=== PATIENT | male | born 1940 | race Caucasian/White ===

== ENCOUNTER 2017-03-17 15:54 | Inpatient (IN) | payer OTHER, MEDICARE ==
[~2017-03-17] VITALS: Ht 172.7 cm; Wt 73.0 kg
[~2017-03-17 15:54] MED LIST: ASPI81 PO; CARV3.125 PO; CLOP75 PO; LASI20TA PO; PERC7.5T13 PO; POTA-243 PO; WARF2.5 PO; ZOCO10TA PO
[2017-03-17 15:56] VITALS: PULSE 112; RESP 20; TEMP 97.9; O2SAT 94
[2017-03-17 16:18] VITALS: BP 115/57; PULSE 99; RESP 17; O2SAT 97
[2017-03-17] MEDS ORDERED: MORPHINE SULFATE 2 MG/ML INJ IV PUSH ONE (17:00)
[2017-03-17 17:11] LABS: AUTOMATED NEUTROPHIL # 8.5 TH/MM3 (1.8-7.7); BASOPHIL # 0.1 TH/MM3 (0-0.2); BASOPHIL % 0.7 % (0.0-2.0); EOSINOPHIL # 0.1 TH/MM3 (0-0.4); EOSINOPHIL % 1.1 % (0.0-4.0); HEMATOCRIT 48.1 % (39.0-51.0); HEMOGLOBIN 16.2 GM/DL (13.0-17.0); LYMPH % 16.4 % (9.0-44.0); LYMPHOCYTE # 1.9 TH/MM3 (1.0-4.8); MEAN CELL VOLUME 90.4 FL (80.0-100.0); MEAN CORPUSCULAR HEMOGLOBIN 30.4 PG (27.0-34.0); MEAN CORPUSCULAR HGB CONC 33.6 % (32.0-36.0); MEAN PLATELET VOLUME 8.4 FL (7.0-11.0); MONO % 8.7 % (0.0-8.0); NEUT % 73.1 % (16.0-70.0); PLATELET COUNT 264 TH/MM3 (150-450); RED BLOOD COUNT 5.32 MIL/MM3 (4.50-5.90); RED CELL DISTRIBUTION WIDTH 14.2 % (11.6-17.2); WHITE BLOOD COUNT 11.7 TH/MM3 (4.0-11.0)
[2017-03-17 17:19] LABS: PROTHROMBIN TIME - PATIENT 10.5 SEC (9.8-11.6)
[2017-03-17 17:46] LABS: ALBUMIN 3.9 GM/DL (3.4-5.0); ALKALINE PHOSPHATASE 64 U/L (45-117); ALT (GPT) 43 U/L (12-78); AST (GOT) 23 U/L (15-37); BICARBONATE 27.9 MEQ/L (21.0-32.0); BLOOD UREA NITROGEN 50 MG/DL (7-18); CHLORIDE 106 MEQ/L (98-107); CREATININE 1.83 MG/DL (0.60-1.30); DIRECT BILIRUBIN ADULT 0.2 MG/DL (0.0-0.2); GLOMERULAR FILTRATION RATE 36 ML/MIN (>89); GLUCOSE,RANDOM 166 MG/DL (74-106); INDIRECT BILIRUBIN 0.5 MG/DL (0.0-0.8); LIPASE 73 U/L (73-393); SODIUM (NA) 142 MEQ/L (136-145); TOTAL BILIRUBIN ADULT 0.7 MG/DL (0.2-1.0); TOTAL PROTEIN 7.4 GM/DL (6.4-8.2)
--- NOTE | 2017-03-17 17:50 | PD ---
HPI Chief Complaint: Abdominal Pain Time Seen by Provider: 16:24 Travel History International Travel<30 days: No Contact w/Intl Traveler<30days: No Traveled to known affect area: No History of Present Illness HPI 76yo M with PMH of CAD s/p cardiogenic shock with 100% coronary artery occlusion in 2008, alcohol abuse presents to the ED with multiple complaints. [facility] [place] director call. Said he has been having right upper abdominal pain for 3 days and pain is constant and not relieved with tums. Pt has also been feeling generalized weakness, lightheadedness for 2 days. Feels like he is about to pass out but does not. Denies any fever, chest pain, sob, vomiting, focal weakness or numbness. Pt drinks beer almost every day. PFSH Past Medical History Blood Disorders: No Cardiac Catheterization: Yes Cardiovascular Problems: No High Cholesterol: Yes Diminished Hearing: No Endocrine: No Genitourinary: No Immune Disorder: No Implanted Vascular Access Dvce: No Musculoskeletal: No Neurologic: No Psychiatric: No Reproductive: No Respiratory: Yes (PE) Myocardial Infarction: Yes (07/19) Renal Failure: Yes Past Surgical History Coronary Stent: Yes Oral Surgery: Yes Social History Alcohol Use: Yes (OCCASSIONAL ONLY PER FAMILY) Tobacco Use: No (QUIT 07/15/08) Substance Use: No Allergies-Medications (Allergen,Severity, Reaction): Coded Allergies: No Known Allergies (Verified Allergy, Unknown, 03/17/17) Reported Meds & Prescriptions Reported Meds & Active Scripts Active Active Prescriptions or Reported Medications Unobtainable Review of Systems Except as stated in HPI: all other systems reviewed are Neg Physical Exam Narrative GENERAL: 76yo M in mild distress. SKIN: Focused skin assessment warm/dry. HEAD: Atraumatic. Normocephalic. EYES: Pupils equal and round. No scleral icterus. No injection or drainage. CARDIOVASCULAR: Regular rate and rhythm. No murmur appreciated. RESPIRATORY: No accessory muscle use. Clear to auscultation. Breath sounds equal bilaterally. GASTROINTESTINAL: Abdomen soft,+TTP RUQ. +[place] sign. No rebound tenderness or guarding. MUSCULOSKELETAL: No obvious deformities. No clubbing. No cyanosis. No edema. NEUROLOGICAL: Awake and alert. No obvious cranial nerve deficits. Motor grossly within normal limits. Normal speech. PSYCHIATRIC: Appropriate mood and affect; insight and judgment normal. Data Data Last Documented VS Vital Signs Date Time Temp Pulse Resp B/P (MAP) Pulse Ox O2 Delivery O2 Flow Rate FiO2 03/17/17 18:21 85 17 101/65 (77) 95 Room Air 03/17/17 15:56 97.9 Orders Orders Electrocardiogram (03/17/17 ) Complete Blood Count With Diff (03/17/17 16:46) Basic Metabolic Panel (Bmp) (03/17/17 16:46) Hepatic Functional Panel (03/17/17 16:46) Prothrombin Time / Inr (Pt) (03/17/17 16:46) Act Partial Throm Time (Ptt) (03/17/17 16:46) Us Abdomen Gallbladder (03/17/17 ) Lipase (03/17/17 16:46) Urinalysis - C+S If Indicated (03/17/17 16:46) Alcohol (Ethanol) (03/17/17 16:46) Morphine Inj (Morphine Inj) (03/17/17 17:00) Troponin I (03/17/17 16:48) Protein Corrected Calcium(Pcc) (03/17/17 16:40) Sodium Chlor 0.9% 1000 Ml Inj (Ns 1000 M (03/17/17 18:30) Consult General Surgery (03/17/17 ) (Hub Use Only)Inp Phy Cons/Ref (03/17/17 ) Admit Order (Ed Use Only) (03/17/17 19:04) Labs Laboratory Tests Test 03/17/17 16:40 White Blood Count 11.7 TH/MM3 Red Blood Count 5.32 MIL/MM3 Hemoglobin 16.2 GM/DL Hematocrit 48.1 % Mean Corpuscular Volume 90.4 FL Mean Corpuscular Hemoglobin 30.4 PG Mean Corpuscular Hemoglobin Concent 33.6 % Red Cell Distribution Width 14.2 % Platelet Count 264 TH/MM3 Mean Platelet Volume 8.4 FL Neutrophils (%) (Auto) 73.1 % Lymphocytes (%) (Auto) 16.4 % Monocytes (%) (Auto) 8.7 % Eosinophils (%) (Auto) 1.1 % Basophils (%) (Auto) 0.7 % Neutrophils # (Auto) 8.5 TH/MM3 Lymphocytes # (Auto) 1.9 TH/MM3 Monocytes # (Auto) 1.0 TH/MM3 Eosinophils # (Auto) 0.1 TH/MM3 Basophils # (Auto) 0.1 TH/MM3 CBC Comment DIFF FINAL Differential Comment Prothrombin Time 10.5 SEC Prothromb Time International Ratio 1.0 RATIO Activated Partial Thromboplast Time 22.5 SEC Blood Urea Nitrogen 50 MG/DL Creatinine 1.83 MG/DL Random Glucose 166 MG/DL Total Protein 7.4 GM/DL Albumin 3.9 GM/DL Calcium Level 11.6 MG/DL Alkaline Phosphatase 64 U/L Aspartate Amino Transf (AST/SGOT) 23 U/L Alanine Aminotransferase (ALT/SGPT) 43 U/L Total Bilirubin 0.7 MG/DL Direct Bilirubin 0.2 MG/DL Sodium Level 142 MEQ/L Potassium Level 4.4 MEQ/L Chloride Level 106 MEQ/L Carbon Dioxide Level 27.9 MEQ/L Anion Gap 8 MEQ/L Estimat Glomerular Filtration Rate 36 ML/MIN Protein Corrected Calcium 11.4 MG/DL Indirect Bilirubin 0.5 MG/DL Lipase 73 U/L Ethyl Alcohol Level LESS THAN 3 MG/DL [facility] Medical Decision Making Medical Screen Exam Complete: Yes Emergency Medical Condition: Yes Interpretation(s) EKG: Atrial flutter at 107bpm. Normal axis. Differential Diagnosis Arrhythmia vs. cholecystitis vs. hepatitis Narrative Course 76yo M with history of CAD s/p vfib and coronary artery occlusion, hoarse voice since intubation in 2008, PE, alcohol abuse here with multiple complaints. Pt has been having generalized weakness and EKG found to have aflutter. At bedside , HR is about 90s to low 100s. [facility]. Labs reviewed, WBC 11.7. BUN/creatinine elevated at 50/1.83. Calcium is elevated at 11.4. Pt given NS IVF. US gallbladder showed thickened gallbladder wall with multiple stone but no pericholecystic fluid. Normal CBD. Place general surgery consult since I am admitting the pt for RAKAN and near syncope work up. Pt initially had EKG that looked like atrial flutter but pt appears to be sinus in the 80s on the monitor. Discussed with Dr. Woods and accepted to her service. Diagnosis Primary Impression: RAKAN (acute kidney injury) Admitting Information Admitting Physician Requests: Admit Scripts Unable to Obtain Active Prescriptions or Reported Meds Eliz Salazar DO Mar 17, 2017 17:50
[2017-03-17 17:51] LABS: CALCIUM 11.6 MG/DL (8.5-10.1)
[2017-03-17 18:08] LABS: CALCIUM-PROTEIN CORRECTED 11.4 MG/DL (8.5-10.1)
--- NOTE | 2017-03-17 18:11 | RADRPT ---
EXAM DATE/TIME: 03/17/2017 17:31 [place] COMPARISON: No previous studies available for comparison. INDICATIONS : Right upper quadrant pain. MEDICAL HISTORY : Myocardial infarction. Hypercholesterolemia. Pulmonary embolism. Renal failure. SURGICAL HISTORY : Coronary artery stent. Oral surgery. ENCOUNTER: Initial ACUITY: 4-6 days PAIN SCORE: 10/10 LOCATION: Right upper quadrant MEASUREMENTS: LIVER: 15.9 cm length COMMON DUCT: 4 mm RIGHT KIDNEY: 11.6 x 4.5 x 5.8 cm FINDINGS: Thickened gallbladder wall with multiple stones the largest measuring up to 1.3 cm. No pericholecysti c fluid. Common bile duct normal at 4 mm. Portal venous flow direction normal. No focal liver abnorma lity. Nonobstructing renal calcifications measuring up to 6 mm. CONCLUSION: 1. Multiple gallstones without biliary ductal dilatation. No free fluid. Multiple nonobstructing shelia l calcifications. Nicolás Joy MD on March 17, 2017 at 18:07 Board Certified Radiologist. This report was verified electronically.
[2017-03-17 18:21] VITALS: BP 101/65; PULSE 85; RESP 17; O2SAT 95
[2017-03-17] MEDS ORDERED: SODIUM CHLOR 0.9% 1000 ML INJ 1,000 ML IV ONE (18:30)
--- NOTE | 2017-03-17 19:07 | HHI.HP ---
[facility] Service [place] [facility] Primary Care Physician [facility] Admission Diagnosis RAKAN, cholecystitis Diagnoses: (1) Near syncope Diagnosis: Principal (2) RAKAN (acute kidney injury) Diagnosis: Principal (3) Cholecystitis Diagnosis: Principal (4) Hypercalcemia Diagnosis: Principal (5) Alcohol abuse Diagnosis: Principal Travel History International Travel<30 Days: No Contact w/Intl Traveler <30 Da: No Traveled to Known Affected Are: No History of Present Illness This is a 36-year-old male with PMH of HTN, Hyperlipidemia, CAD and Alcohol Abuse who presented to the ER w/ complaints of RUQ pain, generalized weakness and lightheadedness. Pt reports symptoms started 2 days ago. RUQ pain is constant, non-radiating, severe, 10/10. No alleviating or exacerbating factors. Denies associated nausea or vomiting. Today, reports intense lightheadedness and near syncopal event. No fall or head trauma. On arrival, BP 115/57, HR 112, O2 sat 94% on RA, Afebrile. WBC 11.7. Creatinine 1.83, previously 0.90 on 08/21/08. Calcium 11.6. LFTs normal. Gallbladder US with multiple gallstones, no biliary ductal dilatation. On exam, pt w/ significant RUQ tenderness to palpation. S/p Morphine in ER w/ some improvement. Review of Systems Except as stated in HPI: all other systems reviewed are Neg ROS: 14 point review of systems otherwise negative. Past Family Social History Past Medical History PMH: HTN, Hyperlipidemia, CAD and Alcohol Abuse Past Surgical History PAST SURGICAL HISTORY: Cardiac Stent, Oral Surgery Allergies: Coded Allergies: No Known Allergies (Verified Allergy, Unknown, 03/17/17) Family History PAST FAMILY HISTORY: Reviewed. No h/o DM or CAD Social History PAST SOCIAL HISTORY: Drinks daily. History of tobacco, quit 2008. Negative for drugs. Physical Exam Vital Signs Vital Signs Date Time Temp Pulse Resp B/P (MAP) Pulse Ox O2 Delivery O2 Flow Rate FiO2 03/17/17 18:21 85 17 101/65 (77) 95 Room Air 03/17/17 16:18 99 17 115/57 (76) 97 Room Air 03/17/17 15:56 97.9 112 20 94 Room Air Physical Exam PE: GENERAL: Elderly male in no acute distress. HEENT: PERRLA, EOMI. No scleral icterus or conjunctival pallor. No lid lag or facial droop. CARDIOVASCULAR: Regular rate and rhythm. No obvious murmurs to auscultation. No chest tenderness to palpation. RESPIRATORY: No obvious rhonchi or wheezing. Clear to auscultation. Breath sounds equal bilaterally. GASTROINTESTINAL: Abdomen soft, significant tenderness to palpation RUQ, nondistended. BS normal. MUSCULOSKELETAL: Extremities without clubbing, cyanosis, or edema. No obvious deformities. NEUROLOGICAL: Awake, alert and oriented x4. No focal neurologic deficits. Moving both upper and lower extremities spontaneously. Laboratory Laboratory Tests Test 03/17/17 16:40 White Blood Count 11.7 Red Blood Count 5.32 Hemoglobin 16.2 Hematocrit 48.1 Mean Corpuscular Volume 90.4 Mean Corpuscular Hemoglobin 30.4 Mean Corpuscular Hemoglobin Concent 33.6 Red Cell Distribution Width 14.2 Platelet Count 264 Mean Platelet Volume 8.4 Neutrophils (%) (Auto) 73.1 Lymphocytes (%) (Auto) 16.4 Monocytes (%) (Auto) 8.7 Eosinophils (%) (Auto) 1.1 Basophils (%) (Auto) 0.7 Neutrophils # (Auto) 8.5 Lymphocytes # (Auto) 1.9 Monocytes # (Auto) 1.0 Eosinophils # (Auto) 0.1 Basophils # (Auto) 0.1 CBC Comment DIFF FINAL Differential Comment Prothrombin Time 10.5 Prothromb Time International Ratio 1.0 Activated Partial Thromboplast Time 22.5 Blood Urea Nitrogen 50 Creatinine 1.83 Random Glucose 166 Total Protein 7.4 Albumin 3.9 Calcium Level 11.6 Alkaline Phosphatase 64 Aspartate Amino Transf (AST/SGOT) 23 Alanine Aminotransferase (ALT/SGPT) 43 Total Bilirubin 0.7 Direct Bilirubin 0.2 Sodium Level 142 Potassium Level 4.4 Chloride Level 106 Carbon Dioxide Level 27.9 Anion Gap 8 Estimat Glomerular Filtration Rate 36 Protein Corrected Calcium 11.4 Indirect Bilirubin 0.5 Lipase 73 Ethyl Alcohol Level LESS THAN 3 Result Diagram: 03/17/17 1640 03/17/17 1640 Dee VTE Risk Assessment Caprini VTE Risk Assessment: No/Low Risk (score <= 1) Caprini Risk Assessment Model Point Value = 1 Point Value = 2 Point Value = 3 Point Value = 5 Age 41-60 Minor surgery BMI > 25 kg/m2 Swollen legs Varicose veins or History of unexplained or recurrent spontaneous Oral contraceptives or hormone replacement Sepsis (< 1 month) Serious lung disease, including pneumonia (< 1 month) Abnormal pulmonary function Acute myocardial infarction Congestive heart failure (< 1 month) History of inflammatory bowel disease Medical patient at bed rest Age 61-74 Arthroscopic surgery Major open surgery (> 45 min) Laparoscopic surgery (> 45 min) Malignancy Confined to bed (> 72 hours) Immobilizing plaster cast Central venous access Age >= 75 History of VTE Family history of VTE Factor V Leiden Prothrombin [id number] Lupus anticoagulant Anticardiolipin antibodies Elevated serum homocysteine Heparin-induced thrombocytopenia Other congenital or acquired thrombophilia Stroke (< 1 month) Elective arthroplasty Hip, pelvis, or leg fracture Acute spinal cord injury (< 1 month) Prophylaxis Regimen Total Risk Factor Score Risk Level Prophylaxis Regimen 0-1 Low Early ambulation 2 Moderate Order ONE of the following: *Sequential Compression Device (SCD) *Heparin 5000 units SQ BID 3-4 Higher Order ONE of the following medications: *Heparin 5000 units SQ TID *Enoxaparin/Lovenox 40 mg SQ daily (WT < 150 kg, CrCl > 30 mL/min) *Enoxaparin/Lovenox 30 mg SQ daily (WT < 150 kg, CrCl > 10-29 mL/min) *Enoxaparin/Lovenox 30 mg SQ BID (WT < 150 kg, CrCl > 30 mL/min) AND/OR *Sequential Compression Device (SCD) 5 or more Highest Order ONE of the following medications: *Heparin 5000 units SQ TID (Preferred with Epidurals) *Enoxaparin/Lovenox 40 mg SQ daily (WT < 150 kg, CrCl > 30 mL/min) *Enoxaparin/Lovenox 30 mg SQ daily (WT < 150 kg, CrCl > 10-29 mL/min) *Enoxaparin/Lovenox 30 mg SQ BID (WT < 150 kg, CrCl > 30 mL/min) AND *Sequential Compression Device (SCD) Assessment and Plan Problem List: (1) Near syncope ICD Code: R55 - Syncope and collapse (2) RAKAN (acute kidney injury) ICD Code: N17.9 - Acute kidney failure, unspecified Status: Acute (3) Cholecystitis ICD Code: K81.9 - Cholecystitis, unspecified (4) Hypercalcemia ICD Code: E83.52 - Hypercalcemia (5) Alcohol abuse ICD Code: F10.10 - Alcohol abuse, uncomplicated Assessment and Plan A/P: 1. Near Syncope: likely secondary to significant dehydration/hypovolemia. Telemetry for eval of possible arrhythmia. Check serial cardiac enzymes to rule out underlying ACS as possible etiology. Check Echo to eval for valve abnormality or outlet obstruction. 2. RAKAN: Severe. Creatinine 1.83, previously 0.90 on 08/21/08. Check U/a. IVF for hydration, repeat labs in am for trend. Consult Nephrology if no improvement in renal function for further recommendations. 3. Cholecystitis: Severe RUQ pain/tenderness to palpation. Gallbladder US w/ thickened gallbladder wall and multiple stones, images reviewed by me. Will start on empiric antibiotics w/ Zosyn IV in light of symptoms and leukocytosis. Consult Gen Sx for possible surgical intervention. Morphine prn for pain control. 4. Hypercalcemia: Ca 11.6, likely secondary to severe dehydration. IVF for hydration, repeat labs in am for trend. 5. Alcohol Abuse: Drinks daily, high risk for withdrawal, start CIWA, MVT/ Thiamine/Folate, Seizure Precautions. 6. DVT Prophylaxis: SCD/Teds. 7. Social work for d/c planning as needed. 8. Records/labs/imaging reviewed by me. Case discussed at length w/ ER physician. Physician Certification 2 Midnight Certification Type: Admission for Inpatient Services Order for Inpatient Services The services are ordered in accordance with Medicare regulations or non- Medicare payer requirements, as applicable. In the case of services not specified as inpatient-only, they are appropriately provided as inpatient services in accordance with the 2-midnight benchmark. Estimated LOS (days): 2 days is the estimated time the patient will need to remain in the hospital, assuming treatment plan goals are met and no additional complications. Post-Hospital Plan: Not yet determined Ruma Woods MD Mar 17, 2017 19:07
[2017-03-17] MEDS ORDERED: FLUMAZENIL 0.5 MG/5 ML VIAL IV PUSH PRN (19:15)
[2017-03-17] MEDS ORDERED: MAGNESIUM HYDROXIDE SUSP 30 ML CUP PO PRN (19:15)
[2017-03-17] MEDS ORDERED: ACETAMINOPHEN 325 MG TAB PO PRN (19:15)
[2017-03-17] MEDS ORDERED: SODIUM CHLORIDE 0.9% FLUSH 10 ML FLUSH IV FLUSH PRN (19:15)
[2017-03-17] MEDS ORDERED: LORazepam 2 MG/ML VIAL IV PUSH PRN ×4 (19:15)
[2017-03-17] MEDS ORDERED: LACTULOSE SYRUP 20 GM/30 ML CUP PO PRN (19:15)
[2017-03-17] MEDS ORDERED: HALOPERIDOL LACTATE 5 MG/ML AMP IM PRN (19:15)
[2017-03-17] MEDS ORDERED: BISACODYL 10 MG SUPP RECTAL PRN (19:15)
[2017-03-17] MEDS ORDERED: LORazepam 2 MG TAB PO PRN (19:15)
[2017-03-17] MEDS ORDERED: LORazepam 1 MG TAB PO PRN (19:15)
[2017-03-17] MEDS ORDERED: ONDANSETRON HCL 4 MG/2 ML VIAL IVP PRN (19:15)
[2017-03-17] MEDS ORDERED: SENNOSIDES 8.6 MG TAB PO PRN (19:15)
[2017-03-17 19:20] VITALS: BP 117/69; PULSE 84; RESP 18; O2SAT 96
[2017-03-17] MEDS: SODIUM CHLOR 0.9% 1000 ML INJ 1,000 ML IV SCH (19:37)
[2017-03-17] MEDS: MORPHINE SULFATE 2 MG/ML INJ IV PUSH PRN (19:37)
[2017-03-17 20:03] VITALS: BP 107/72; PULSE 81; RESP 20; O2SAT 98
--- NOTE | 2017-03-17 20:12 | MB ---
cc: TOLU TYLER M.D. DATE OF CONSULTATION: 03/17/2017. REASON FOR CONSULTATION: Gallstones with a Mohan sign by ultrasound. HISTORY OF PRESENT ILLNESS: The patient is a 76-year-old male with a four-day history of right upper quadrant pain. The patient has been followed over in the [facility] clinic and has been reported to have been given pain pills for this in the past. He was seen in [address] [facility] for very similar symptoms. He reports he was not having any problems since then. He has since suffered cardiogenic shock with a myocardial infarction in 2008. He has followed with a forging machine hand in [facility] at the [facility] but does not recall his name. PAST MEDICAL HISTORY: His past medical history is significant for: 1. Coronary artery disease. 2. Hyperlipidemia. 3. Hypertension. 4. Alcohol abuse. ALLERGIES: THE PATIENT HAS NO KNOWN ALLERGIES. MEDICATIONS: He does not recall what medications he is taking. REVIEW OF SYSTEMS: His review of systems is as indicated above. PHYSICAL EXAMINATION: GENERAL: The physical exam reveals a thin male in no acute distress. VITAL SIGNS: Blood pressure 115/57, pulse 99, respirations 17, 97% saturation on room air. HEAD, EYES, EARS, NOSE, THROAT: The sclerae are nonicteric. Pupils are reactive. CHEST: Clear to auscultation. CARDIAC: Exam reveals regular rate and rhythm. ABDOMEN: Soft with some right upper quadrant tenderness without guarding or rebound. Pulses are present. I do not appreciate any hepatomegaly. There are no masses appreciated. NEUROLOGIC: Cranial nerves - the patient is hoarse and reports he has been so since 2008. LABORATORY VALUES: WBCs of 11.7, platelets of 264,000, hemoglobin 16.2. Chemistries: Abnormal BUN and creatinine at 50 and 1.83. Glucose is 166. Calcium is 11.6. Protein-corrected is 11.4. Liver function tests are all within normal limits. Lipase is within normal limits. Coags are normal. EtOH is less than 3. IMAGING STUDIES: Ultrasound demonstrates normal common bile duct at 4 mm, a thickened gallbladder wall with multiple stones. No pericholecystic fluid. ASSESSMENT: A patient with severe cardiac disease without significant follow up or workup recently that he can recall. The patient does not have signs and symptoms of cholangitis or acute requirement for surgery this weekend. I would be reluctant to perform any surgery without a complete cardiac workup prior to proceeding as he would be at extreme risk for sudden as he has not had any workup in the recent past. I am also concerned about the patient's elevated calcium, and this may be elevated due to either hyperparathyroidism or potentially metastatic disease. The patient needs workup for this as well. If the patient is having significant continued discomfort, cholecystostomy tube while the remainder of his workup is being performed would be advisable. We will check on the patient again on Monday if he stays in the hospital over the weekend. There is no indication for urgent or emergent surgery at this time. Thank you for this interesting consult. MD HANNA Jay/JCSharlene /7:39 PM /7:45 PM
[2017-03-17] MEDS: PIPERACIL-TAZO 3.375 GM PREMIX 50 ML IV SCH (20:20)
[2017-03-17 20:38] VITALS: BP 110/65; PULSE 85; RESP 20; TEMP 96.6; O2SAT 95
[2017-03-17] MEDS: SODIUM CHLORIDE 0.9% FLUSH 10 ML FLUSH IV FLUSH SCH (21:57)
[2017-03-17] MEDS: DOCUSATE SODIUM 50 MG/SENNA 8.6 MG TAB PO SCH (22:17)
[2017-03-18] VITALS (9 sets, daily range): BP systolic 104–137; BP diastolic 61–80; PULSE 70–84; RESP 17–20; TEMP 96.7–98.5; O2SAT 94–96
[2017-03-18] MEDS: PIPERACIL-TAZO 3.375 GM PREMIX 50 ML IV SCH ×4 (01:37→20:00)
[2017-03-18] MEDS: SODIUM CHLOR 0.9% 1000 ML INJ 1,000 ML IV SCH ×2 (05:21→13:38)
[2017-03-18] MEDS: MORPHINE SULFATE 2 MG/ML INJ IV PUSH PRN (05:22)
[2017-03-18] MEDS: THIAMINE HCL 100 MG TAB PO SCH (08:33)
[2017-03-18] MEDS: MULTIVITAMINS/MINERALS THERAPEUTIC TAB PO SCH (08:33)
[2017-03-18] MEDS: FOLIC ACID 1 MG TAB PO SCH (08:33)
[2017-03-18] MEDS: DOCUSATE SODIUM 50 MG/SENNA 8.6 MG TAB PO SCH ×2 (08:33→20:00)
[2017-03-18] MEDS: ACETAMINOPHEN/HYDROcodone 325 MG/5 MG TAB PO PRN ×4 (08:34→22:30)
[2017-03-18] MEDS: SODIUM CHLORIDE 0.9% FLUSH 10 ML FLUSH IV FLUSH SCH ×2 (08:34→20:00)
[2017-03-18 09:10] LABS: AUTOMATED NEUTROPHIL # 6.6 TH/MM3 (1.8-7.7); BASOPHIL # 0.1 TH/MM3 (0-0.2); EOSINOPHIL # 0.2 TH/MM3 (0-0.4); EOSINOPHIL % 2.4 % (0.0-4.0); HEMATOCRIT 43.2 % (39.0-51.0); HEMOGLOBIN 14.9 GM/DL (13.0-17.0); LYMPH % 19.7 % (9.0-44.0); LYMPHOCYTE # 1.9 TH/MM3 (1.0-4.8); MEAN CELL VOLUME 90.1 FL (80.0-100.0); MEAN CORPUSCULAR HGB CONC 34.4 % (32.0-36.0); MEAN PLATELET VOLUME 8.2 FL (7.0-11.0); MONO % 8.9 % (0.0-8.0); MONOCYTE # 0.9 TH/MM3 (0-0.9); PLATELET COUNT 237 TH/MM3 (150-450); RED BLOOD COUNT 4.79 MIL/MM3 (4.50-5.90); RED CELL DISTRIBUTION WIDTH 13.7 % (11.6-17.2); WHITE BLOOD COUNT 9.8 TH/MM3 (4.0-11.0)
[2017-03-18 09:46] LABS: ALBUMIN 3.5 GM/DL (3.4-5.0); ALKALINE PHOSPHATASE 57 U/L (45-117); ALT (GPT) 41 U/L (12-78); AST (GOT) 21 U/L (15-37); BICARBONATE 26.9 MEQ/L (21.0-32.0); BLOOD UREA NITROGEN 41 MG/DL (7-18); CALCIUM 10.1 MG/DL (8.5-10.1); CHLORIDE 109 MEQ/L (98-107); CREATININE 1.38 MG/DL (0.60-1.30); GLOMERULAR FILTRATION RATE 50 ML/MIN (>89); GLUCOSE,RANDOM 101 MG/DL (74-106); SODIUM (NA) 142 MEQ/L (136-145); TOTAL BILIRUBIN ADULT 1.2 MG/DL (0.2-1.0); TOTAL PROTEIN 6.9 GM/DL (6.4-8.2); TROPONIN I 0.05 NG/ML (0.02-0.05)
--- NOTE | 2017-03-18 10:09 | HHI.PR ---
cc: Yamilet Ashley MD Subjective Subjective Notes DAILY PROGRESS NOTE FOR SURGICAL ATTENDING, DR. YAMILET ASHLEY Patient feels better Had a regular diet today Still has some right upper quadrant pain He had some he was eating a lot of Tums and drinks 2 gallons of milk frequently he asked if this could cause high calcium Objective Vitals/I&O Vital Signs Date Time Temp Pulse Resp B/P (MAP) Pulse Ox O2 Delivery O2 Flow Rate FiO2 03/18/17 09:41 18 03/18/17 08:00 98.0 84 137/80 (99) 95 03/17/17 20:03 Room Air Labs Laboratory Tests Test 03/17/17 16:40 03/18/17 00:42 03/18/17 07:30 White Blood Count 11.7 9.8 Red Blood Count 5.32 4.79 Hemoglobin 16.2 14.9 Hematocrit 48.1 43.2 Mean Corpuscular Volume 90.4 90.1 Mean Corpuscular Hemoglobin 30.4 31.0 Mean Corpuscular Hemoglobin Concent 33.6 34.4 Red Cell Distribution Width 14.2 13.7 Platelet Count 264 237 Mean Platelet Volume 8.4 8.2 Neutrophils (%) (Auto) 73.1 68.0 Lymphocytes (%) (Auto) 16.4 19.7 Monocytes (%) (Auto) 8.7 8.9 Eosinophils (%) (Auto) 1.1 2.4 Basophils (%) (Auto) 0.7 1.0 Neutrophils # (Auto) 8.5 6.6 Lymphocytes # (Auto) 1.9 1.9 Monocytes # (Auto) 1.0 0.9 Eosinophils # (Auto) 0.1 0.2 Basophils # (Auto) 0.1 0.1 CBC Comment DIFF FINAL DIFF FINAL Differential Comment Prothrombin Time 10.5 Prothromb Time International Ratio 1.0 Activated Partial Thromboplast Time 22.5 Blood Urea Nitrogen 50 41 Creatinine 1.83 1.38 Random Glucose 166 101 Total Protein 7.4 6.9 Albumin 3.9 3.5 Calcium Level 11.6 10.1 Alkaline Phosphatase 64 57 Aspartate Amino Transf (AST/SGOT) 23 21 Alanine Aminotransferase (ALT/SGPT) 43 41 Total Bilirubin 0.7 1.2 Direct Bilirubin 0.2 Sodium Level 142 142 Potassium Level 4.4 3.9 Chloride Level 106 109 Carbon Dioxide Level 27.9 26.9 Anion Gap 8 6 Estimat Glomerular Filtration Rate 36 50 Protein Corrected Calcium 11.4 Indirect Bilirubin 0.5 Troponin I 0.03 0.04 0.05 Lipase 73 Ethyl Alcohol Level LESS THAN 3 Radiology Last Impressions Gall Bladder Ultrasound 03/17/17 0000 Signed Impressions: Service Date/Time: Friday, March 17, 2017 17:31 - CONCLUSION: 1. Multiple gallstones without biliary ductal dilatation. No free fluid. Multiple nonobstructing renal calcifications. Yamilet Joy MD Cardiovascular: Regular Lungs: Clear Abdomen: Other (mild right upper quadrant tenderness), BS normal Extremities: No edema A/P Problem List: (1) Coronary artery disease ICD Codes: I25.10 - Atherosclerotic heart disease of enterprise coronary artery without angina pectoris (2) Cholecystitis ICD Codes: K81.9 - Cholecystitis, unspecified (3) Near syncope ICD Codes: R55 - Syncope and collapse (4) Hypercalcemia ICD Codes: E83.52 - Hypercalcemia (5) RAKAN (acute kidney injury) ICD Codes: N17.9 - Acute kidney failure, unspecified Status: Acute (6) Alcohol abuse ICD Codes: F10.10 - Alcohol abuse, uncomplicated Assessment and Plan 76-year-old gentleman who has severe coronary artery disease with hypercalcemia most likely related to calcium intake with Tums pills and milk He has findings of cholecystitis his first attack occurring in 2008 He tolerated a regular breakfast today does still have some abdominal discomfort. He will need a full cardiac workup and clearance prior to surgical intervention I suspect his calcium will return to normal by not eating Tums and drinking 2 gallons of milk Attending Statement NOTE FOR SURGICAL ATTENDING, DR. YAMILET ASHLEY I attest that I had a [id number] encounter with the patient on the same day, and personally performed and documented my assessment and findings in the medical record. The following services were provided during this hospital visit: Chart data review, vital sign assessments/reviewing monitor data Review of consultations notes if present. Medication orders/review and/or management Ordering and/or reviewing lab tests Ordering and/or interpreting/reviewing x-rays and/or diagnostic studies Care of the patient and discussion of the patient with the care team Documentation time To help prompt me to consider important information that might be impacting today's encounter and assessment, information from prior notes written by myself or my colleagues may have been "brought forward/copy and pasted" into today's note. Yamilet Ashley MD Mar 18, 2017 10:09
--- NOTE | 2017-03-18 13:15 | EKG ---
Date Performed: 03/17/2017 Time Performed: 16:30:18 PTAGE: 76 years EKG: ATRIAL FIBRILLATION WITH SLIGHTLY RAPID VENTRICULAR RESPONSE ANTEROSEPTAL MYOCARDIAL INFARC TION OF UNDETERMINED AGE Compared to previous tracing, the atrial fibrillation is new. Anteroseptal m yocardial infarction was seen on the previous tracing with clearly marked T-wave changes anteriorly, suggesting the infarct was recent in 2008. There is a definite rhythm change however. ABNORMAL ECG PREVIOUS TRACING : 08/21/2008 17.10 DOCTOR: Emiliano Rider Interpretating Date/Time 03/18/2017 13:13:12
--- NOTE | 2017-03-18 18:20 | ECHRPT ---
Indication: ardiomyopathy CONCLUSIONS Normal left ventricular size. The left ventricular systolic function is yjfdkujg-ia-jiichit reduced with an estimated ejection fra ction in the range of 35-40%. Mild mitral valve regurgitation. Mild aortic valve regurgitation. There is mild tricuspid valve regurgitation. The estimated pulmonary arterial pressure is 46.2 mmHg. BP: / HR: Rhythm: MEASUREMENTS (Male / Female) Normal Values Technical Quality:Good 2D ECHO LV Diastolic Diameter PLAX 3.9 cm 4.2 - 5.9 / 3.9 - 5.3 cm LV Systolic Diameter PLAX 3.4 cm IVS Diastolic Thickness 1.4 cm 0.6 - 1.0 / 0.6 - 0.9 cm LVPW Diastolic Thickness 0.9 cm 0.6 - 1.0 / 0.6 - 0.9 cm LV Relative Wall Thickness 0.6 RV Internal Dim ED PLAX 2.5 cm M-MODE Aortic Root Diameter MM 2.7 cm LA Systolic Diameter MM 3.7 cm LA Ao Ratio MM 1.4 AV Cusp Separation MM 2.1 cm DOPPLER AI Peak Velocity 299.0 cm/s AI Peak Gradient 35.8 mmHg AI Pressure Half Time 454.0 ms TR Peak Velocity 301.0 cm/s TR Peak Gradient 36.2 mmHg Right Atrial Pressure 10.0 mmHg Pulmonary Artery Systolic Pressu 46.2 mmHg Right Ventricular Systolic Press 46.2 mmHg FINDINGS LEFT VENTRICLE Normal left ventricular size. The left ventricular systolic function is jfjrmncw-tn-micfsdb reduced with an estimated ejection fra ction in the range of 35-40%. RIGHT VENTRICLE Normal right ventricular size and systolic function. LEFT ATRIUM The left atrial size is normal. RIGHT ATRIUM The right atrial size is normal. ATRIAL SEPTUM Normal atrial septal thickness without atrial level shunting by limited color doppler interrogation. AORTA The aortic root and proximal ascending aorta are normal in size on limited imaging. MITRAL VALVE Structurally normal mitral valve. Mild mitral valve regurgitation. AORTIC VALVE Trileaflet aortic valve. Mild aortic valve regurgitation. TRICUSPID VALVE Structurally normal tricuspid valve. There is mild tricuspid valve regurgitation. The estimated pulmonary arterial pressure is 46.2 mmHg. PULMONARY VALVE No pulmonary valve regurgitation or stenosis. VESSELS The inferior vena cava is normal in size. PERICARDIUM No pericardial effusion. Mark Orozco MD, FACC, [facility] [place] (Electronically Signed) Final Date:18 March 2017 18:18
--- NOTE | 2017-03-18 21:18 | HHI.PR ---
Subjective Remarks Patient feeling better already No dizziness lightheadedness or chest pain or short of breath He told me he used to take a lot of Tums for heartburn in as well as drink a lot of milk, he think this is related to his increased calcium Objective Vitals Vital Signs Date Time Temp Pulse Resp B/P (MAP) Pulse Ox O2 Delivery O2 Flow Rate FiO2 03/18/17 20:27 98.5 70 18 122/76 (91) 95 03/18/17 18:04 18 03/18/17 17:27 95 21 03/18/17 16:00 75 03/18/17 16:00 96.7 77 17 129/77 (94) 95 03/18/17 12:00 97.2 79 17 124/61 (82) 96 03/18/17 12:00 78 03/18/17 08:00 98.0 84 19 137/80 (99) 95 03/18/17 08:00 79 03/18/17 04:00 98.0 83 20 126/75 (92) 95 03/18/17 00:55 97.4 83 20 104/64 (77) 94 I/O 03/17/17 03/17/17 03/17/17 03/18/17 03/18/17 03/18/17 07:00 15:00 23:00 07:00 15:00 23:00 Intake Total 1110 ml 1290 ml 1275 ml Balance 1110 ml 1290 ml 1275 ml Intake Oral 240 ml 1275 ml IV Total 1110 ml 1050 ml # Voids 2 7 # Bowel Movements 0 Result Diagram: 03/18/17 0730 03/18/17 0730 Objective Remarks GENERAL: This is a well-nourished, well-developed patient, in no apparent distress. SKIN: No rashes, warm and dry HEAD: Atraumatic. Normocephalic. EYES: Pupils equal round and reactive. Extraocular motions intact. No scleral icterus. ENT: Nose without bleeding, or drainage, Airway patent. NECK: Trachea midline. Supple CARDIOVASCULAR: Regular rate and rhythm without murmurs, gallops, or rubs. RESPIRATORY: Fair air entry bilaterally. No wheezes, rales, or rhonchi. GASTROINTESTINAL: Abdomen soft, non-tender, nondistended. Positive bowel sounds MUSCULOSKELETAL: Extremities without clubbing, cyanosis, or edema. Pedal pulses appreciated NEUROLOGICAL: Awake and alert. Moves all extremity. Normal speech.no focal neurological deficit A/P Problem List: (1) Near syncope ICD Code: R55 - Syncope and collapse (2) RAKAN (acute kidney injury) ICD Code: N17.9 - Acute kidney failure, unspecified Status: Acute (3) Cholecystitis ICD Code: K81.9 - Cholecystitis, unspecified (4) Hypercalcemia ICD Code: E83.52 - Hypercalcemia (5) Alcohol abuse ICD Code: F10.10 - Alcohol abuse, uncomplicated Assessment and Plan 1. Near Syncope: likely secondary to significant dehydration/hypovolemia. Telemetry for eval of possible arrhythmia. Check serial cardiac enzymes to rule out underlying ACS as possible etiology. Check Echo to eval for valve abnormality or outlet obstruction. 2. RAKAN: Severe. Creatinine 1.83, previously 0.90 on 08/21/08. Check U/a. IVF for hydration, repeat labs in am for trend. Consult Nephrology if no improvement in renal function for further recommendations. 3. Cholecystitis: Severe RUQ pain/tenderness to palpation. Gallbladder US w/ thickened gallbladder wall and multiple stones, images reviewed by me. Will start on empiric antibiotics w/ Zosyn IV in light of symptoms and leukocytosis. Consult Gen Sx for possible surgical intervention. Morphine prn for pain control. 4. Hypercalcemia: Ca 11.6, likely secondary to severe dehydration. IVF for hydration, repeat labs in am for trend. 5. Alcohol Abuse: Drinks daily, high risk for withdrawal, start CIWA, MVT/ Thiamine/Folate, Seizure Precautions. 6. DVT Prophylaxis: SCD/Teds. 03/18/17: Doing better creatinine improved from 1.8-1.38-courtney calcium back to normal limit from 11.6-10.1, repeat BMP in a.m., continue iv fluid Peter Wilson MD Mar 18, 2017 21:18
[2017-03-19] VITALS (10 sets, daily range): BP systolic 95–162; BP diastolic 62–86; PULSE 74–85; RESP 16–20; TEMP 96.5–97.7; O2SAT 94–100
[2017-03-19] MEDS: PIPERACIL-TAZO 3.375 GM PREMIX 50 ML IV SCH ×4 (01:55→19:49)
[2017-03-19] MEDS: SODIUM CHLOR 0.9% 1000 ML INJ 1,000 ML IV SCH (04:39)
[2017-03-19] MEDS: ACETAMINOPHEN/HYDROcodone 325 MG/5 MG TAB PO PRN ×4 (04:47→21:17)
[2017-03-19] MEDS: SODIUM CHLORIDE 0.9% FLUSH 10 ML FLUSH IV FLUSH SCH ×2 (09:00→19:50)
[2017-03-19] MEDS: DOCUSATE SODIUM 50 MG/SENNA 8.6 MG TAB PO SCH ×2 (09:03→19:41)
[2017-03-19] MEDS: MULTIVITAMINS/MINERALS THERAPEUTIC TAB PO SCH (09:03)
[2017-03-19] MEDS: FOLIC ACID 1 MG TAB PO SCH (09:03)
[2017-03-19] MEDS: THIAMINE HCL 100 MG TAB PO SCH (09:03)
--- NOTE | 2017-03-19 10:17 | PD.CONS ---
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 Pt reports symptoms started 2 days ago. RUQ pain is constant , non-radiating, severe, 10/10. No alleviating or exacerbating factors. Denies associated nausea or vomiting. Today, reports intense lightheadedness and near syncopal event. No fall or head trauma. On arrival, BP 115/57, HR 112 , O2 sat 94% on RA, Afebrile. WBC 11.7. Creatinine 1.83, previously 0.90 on 01/19. Calcium 11.6. LFTs normal. Gallbladder US with multiple gallstones, no biliary ductal dilatation. Cardiology consulted for preop clearance. Review of Systems Consitutional: DENIES: Fatigue, Fever, Chills, Weight gain, Weight loss Eyes: DENIES: Amaurosis Fugax, Change in vision HEENT: DENIES: Lightheadedness, Change in hearing Respiratory: DENIES: See HPI, Cough, Snoring, Shortness of breath, Wheezing, Sputum production Cardiovascular: DENIES: See HPI, Chest pain, Palpitations, Syncope, Tachycardia Gastrointestinal: DENIES: Nausea, Vomiting, Change in bowel habits, Reflux, Bloody stools, Melena Genitourinary: DENIES: Urinary incontinence, Difficulty voiding Integumentary: DENIES: Rash Neurologic: DENIES: Tingling or numbness, Memory problems, Poor Balance, Stroke symptoms Musculoskeletal: DENIES: Joint pain, Muscle pain, Limited range of motion, Back pain Psychiatric: DENIES: Anxiety, Depression, Sleep disturbances Hematologic: DENIES: Bruising tendencies, Bleeding tendencies Endocrine: DENIES: Weight gain, Weight loss, Thyroid disease Past Family Social History Allergies: Coded Allergies: No Known Allergies (Verified Allergy, Unknown, 03/17/17) Past Medical History HTN, Hyperlipidemia, CAD and Alcohol Abuse Past Surgical History Cardiac Stent, Oral Surgery Reported Medications Reported Meds & Active Scripts Active Active Prescriptions or Reported Medications Unobtainable Active Ordered Medications Current Medications Medications (Trade) Dose Ordered Sig/Paolo Route Start Time Stop Time Status Last Admin Piperacillin Sod/ Tazobactam Sod 50 ml @ 100 mls/hr Q6H IV 03/17/17 20:00 03/19/17 09:00 (NS Flush) 2 ml UNSCH PRN IV FLUSH 03/17/17 19:15 (NS Flush) 2 ml BID IV FLUSH 03/17/17 21:00 03/19/17 09:00 (Zofran Inj) 4 mg Q6H PRN IVP 03/17/17 19:15 (Tylenol) 650 mg Q6H PRN PO 03/17/17 19:15 03/17/17 22:15 ([place] 5-325 Mg) 1 tab Q4H PRN PO 03/17/17 19:15 03/19/17 04:47 (Morphine Inj) 2 mg Q3H PRN IV PUSH 03/17/17 19:15 03/18/17 05:22 (Kacie-Colace) 1 tab BID PO 03/17/17 21:00 03/19/17 09:03 (Milk Of Magnesia Liq) 30 ml Q12H PRN PO 03/17/17 19:15 (Senokot) 17.2 mg Q12H PRN PO 03/17/17 19:15 (Dulcolax Supp) 10 mg DAILY PRN RECTAL 03/17/17 19:15 (Lactulose Liq) 30 ml DAILY PRN PO 03/17/17 19:15 (Folate) 1 mg DAILY PO 03/18/17 09:00 03/23/17 08:59 03/19/17 09:03 (Vitamin B1) 100 mg DAILY PO 03/18/17 09:00 03/19/17 09:03 (Theragran M Tab) 1 tab DAILY PO 03/18/17 09:00 03/23/17 08:59 03/19/17 09:03 (Romazicon Inj) 0.2 mg Q1M PRN IV PUSH 03/17/17 19:15 (Ativan) 1 mg Q4H PRN PO 03/17/17 19:15 (Ativan Inj) 1 mg Q4H PRN IV PUSH 03/17/17 19:15 (Ativan) 2 mg Q2H PRN PO 03/17/17 19:15 (Ativan Inj) 2 mg Q2H PRN IV PUSH 03/17/17 19:15 (Ativan Inj) 2 mg Q1H PRN IV PUSH 03/17/17 19:15 (Ativan Inj) 2 mg Q15M PRN IV PUSH 03/17/17 19:15 (Haldol Inj) 2 mg Q15M PRN IM 03/17/17 19:15 Family History No h/o DM or CAD Social History Drinks daily. History of tobacco, quit 2008. Negative for drugs. Physical Exam Vital Signs Vital Signs Date Time Temp Pulse Resp B/P (MAP) Pulse Ox O2 Delivery O2 Flow Rate FiO2 03/19/17 08:00 97.0 77 16 148/86 (106) 96 03/19/17 04:00 97.7 80 20 162/80 (107) 96 03/19/17 00:19 97.7 79 18 126/79 (95) 95 03/18/17 23:59 72 03/18/17 20:27 98.5 70 18 122/76 (91) 95 03/18/17 20:00 83 03/18/17 18:04 18 03/18/17 17:27 95 21 03/18/17 16:00 75 03/18/17 16:00 96.7 77 17 129/77 (94) 95 03/18/17 12:00 97.2 79 17 124/61 (82) 96 03/18/17 12:00 78 Physical Exam GENERAL: Well-nourished, well-developed patient. SKIN: Warm and dry. HEAD: Normocephalic. EYES: No scleral icterus. No injection or drainage. NECK: Supple, trachea midline. No JVD or lymphadenopathy. CARDIOVASCULAR: Irr Irr without murmurs, gallops, or rubs. RESPIRATORY: Breath sounds equal bilaterally. No accessory muscle use. GASTROINTESTINAL: Abdomen soft, non-tender, nondistended. EXTREMITIES: No cyanosis, or edema. NEUROLOGICAL: Awake, alert, and oriented x 3. Non-focal. Result Diagram: 03/18/17 0730 03/18/17 0730 Imaging Last Impressions Gall Bladder Ultrasound 03/17/17 0000 Signed Impressions: Service Date/Time: Friday, March 17, 2017 17:31 - CONCLUSION: 1. Multiple gallstones without biliary ductal dilatation. No free fluid. Multiple nonobstructing renal calcifications. Nicolás E. Joy, MD Assessment and Plan Problem List: (1) Coronary artery disease ICD Codes: I25.10 - Atherosclerotic heart disease of [place] coronary artery without angina pectoris Plan: 76 y/o M with known ischemic CMP noncompliant with medications, consulted for CV risk assessment. Patient undergoing intermediate risk procedure , he has no active CV conditions and has a very good functional capacity, thus no further cardiac work up needed. He reports regular cardiac follow up at the [facility]. Noted Afib/Aflutter on EKG. Will need chronic OAC for stoke prevention if no contraindications. Follow up with cardiology upon discharge. Recommendations: 1. Start OAC, when cleared from surgical standpoint, for stroke prevention given Afib. 2. Cont rate control 3. Aggressive medical management for secondary prevention of CAD with ASA, BB, ACEi, Nitrates, statins 4. Low salt diet, daily weight, Diuresis as needed Thank you for the opportunity to participate in the care of this patient (2) RAKAN (acute kidney injury) ICD Codes: N17.9 - Acute kidney failure, unspecified Status: Acute (3) Hypercalcemia ICD Codes: E83.52 - Hypercalcemia (4) Cholecystitis ICD Codes: K81.9 - Cholecystitis, unspecified (5) Near syncope ICD Codes: R55 - Syncope and collapse Rufino-Burke Leivne MD Mar 19, 2017 10:17
[2017-03-19 11:24] LABS: BICARBONATE 25.4 MEQ/L (21.0-32.0); CALCIUM 8.9 MG/DL (8.5-10.1); CREATININE 1.09 MG/DL (0.60-1.30)
--- NOTE | 2017-03-19 12:07 | HHI.PR ---
cc: Cody Porter MD Subjective Subjective Notes some pain this am but controlled with meds, no nausea Objective Vitals/I&O Vital Signs Date Time Temp Pulse Resp B/P (MAP) Pulse Ox O2 Delivery O2 Flow Rate FiO2 03/19/17 09:04 96 21 03/19/17 08:00 97.0 77 16 148/86 (106) 03/17/17 20:03 Room Air Labs Laboratory Tests Test 03/19/17 10:07 Blood Urea Nitrogen 25 Creatinine 1.09 Random Glucose 119 Calcium Level 8.9 Sodium Level 141 Potassium Level 3.8 Chloride Level 109 Carbon Dioxide Level 25.4 Anion Gap 7 Estimat Glomerular Filtration Rate 66 Radiology Last Impressions Gall Bladder Ultrasound 03/17/17 0000 Signed Impressions: Service Date/Time: Friday, March 17, 2017 17:31 - CONCLUSION: 1. Multiple gallstones without biliary ductal dilatation. No free fluid. Multiple nonobstructing renal calcifications. Nicolás Joy MD Abdomen: Other (soft mild ttp, no rebound) A/P Problem List: (1) Coronary artery disease ICD Codes: I25.10 - Atherosclerotic heart disease of [place] coronary artery without angina pectoris (2) Cholecystitis ICD Codes: K81.9 - Cholecystitis, unspecified (3) Near syncope ICD Codes: R55 - Syncope and collapse (4) Hypercalcemia ICD Codes: E83.52 - Hypercalcemia (5) RAKAN (acute kidney injury) ICD Codes: N17.9 - Acute kidney failure, unspecified Status: Acute (6) Alcohol abuse ICD Codes: F10.10 - Alcohol abuse, uncomplicated Assessment and Plan 76-year-old gentleman who has severe coronary artery disease with hypercalcemia most likely related to calcium intake with Tums pills and milk He has findings of cholecystitis his first attack occurring in 2008 PLAN pt is doing better, pain better controlled, tolerating diet ok to d/c home and follow up with Dr. Cazares as out pt Cody Porter MD Mar 19, 2017 12:06
--- NOTE | 2017-03-19 14:27 | HHI.PR ---
Objective Vitals Vital Signs Date Time Temp Pulse Resp B/P (MAP) Pulse Ox O2 Delivery O2 Flow Rate FiO2 03/19/17 12:00 96.9 74 19 118/72 (87) 94 03/19/17 09:04 96 21 03/19/17 08:00 97.0 77 16 148/86 (106) 96 03/19/17 04:00 97.7 80 20 162/80 (107) 96 03/19/17 00:19 97.7 79 18 126/79 (95) 95 03/18/17 23:59 72 03/18/17 20:27 98.5 70 18 122/76 (91) 95 03/18/17 20:00 83 03/18/17 18:04 18 03/18/17 17:27 95 21 03/18/17 16:00 75 03/18/17 16:00 96.7 77 17 129/77 (94) 95 I/O 03/18/17 03/18/17 03/18/17 03/19/17 03/19/17 03/19/17 07:00 15:00 23:00 07:00 15:00 23:00 Intake Total 1290 ml 1325 ml 730 ml 500 ml Balance 1290 ml 1325 ml 730 ml 500 ml Intake Oral 240 ml 1275 ml 680 ml IV Total 1050 ml 50 ml 50 ml 500 ml # Voids 2 7 3 # Bowel Movements 0 Result Diagram: 03/18/17 0730 03/19/17 1007 Objective Remarks GENERAL: This is a well-nourished, well-developed patient, in no apparent distress. SKIN: No rashes, warm and dry HEAD: Atraumatic. Normocephalic. EYES: Pupils equal round and reactive. Extraocular motions intact. No scleral icterus. ENT: Nose without bleeding, or drainage, Airway patent. NECK: Trachea midline. Supple CARDIOVASCULAR: Regular rate and rhythm without murmurs, gallops, or rubs. RESPIRATORY: Fair air entry bilaterally. No wheezes, rales, or rhonchi. GASTROINTESTINAL: Abdomen soft, non-tender, nondistended. Positive bowel sounds MUSCULOSKELETAL: Extremities without clubbing, cyanosis, or edema. Pedal pulses appreciated NEUROLOGICAL: Awake and alert. Moves all extremity. Normal speech.no focal neurological deficit A/P Problem List: (1) Near syncope ICD Code: R55 - Syncope and collapse (2) RAKAN (acute kidney injury) ICD Code: N17.9 - Acute kidney failure, unspecified Status: Acute (3) Cholecystitis ICD Code: K81.9 - Cholecystitis, unspecified (4) Hypercalcemia ICD Code: E83.52 - Hypercalcemia (5) Alcohol abuse ICD Code: F10.10 - Alcohol abuse, uncomplicated Assessment and Plan 1. Near Syncope: likely secondary to significant dehydration/hypovolemia. Telemetry for eval of possible arrhythmia. Check serial cardiac enzymes to rule out underlying ACS as possible etiology. Check Echo to eval for valve abnormality or outlet obstruction. 2. RAKAN: Severe. Creatinine 1.83, previously 0.90 on 08/21/08. Check U/a. IVF for hydration, repeat labs in am for trend. Consult Nephrology if no improvement in renal function for further recommendations. 3. Cholecystitis: Severe RUQ pain/tenderness to palpation. Gallbladder US w/ thickened gallbladder wall and multiple stones, images reviewed by me. Will start on empiric antibiotics w/ Zosyn IV in light of symptoms and leukocytosis. Consult Gen Sx for possible surgical intervention. Morphine prn for pain control. 4. Hypercalcemia: Ca 11.6, likely secondary to severe dehydration. IVF for hydration, repeat labs in am for trend. 5. Alcohol Abuse: Drinks daily, high risk for withdrawal, start CIWA, MVT/ Thiamine/Folate, Seizure Precautions. 6. DVT Prophylaxis: SCD/Teds. 03/19/17: Dehydration hypercalcemia completely improved as well as RAKAN, however new 2-D echo showing ejection fraction 35-40% with MR and AR, by looking back to previous records patient seems to have hyperlipidemia coronary artery disease, and history of PE used to be on aspirin and Plavix and Coumadin in 2008 , patient telling me he follow up with [facility], and he is on multiple medication however he does not have any list of names or doses, patient today cleared by surgery to be discharged and follow up with outpatient , cardiology already seen the patient but we will need to obtain his home medication list to optimize his medication prior to discharge. I'm doubting a level of noncompliance or need of medicine education especially patient came with severe dehydration, questionable overdiuresis Discharge Planning In a.m. if cleared by cardiology, awaiting home medication list optimize his heart failure regimen, note patient has a history of PE and he used to be on Coumadin Plavix and aspirin in 2009, am not sure what is his current medication Used to be on Coreg and statin Peter Wilson MD Mar 19, 2017 14:27
[2017-03-19] MEDS ORDERED: PILL SPLITTER OTHER PRN (15:45)
[2017-03-19] MEDS: METOPROLOL TARTRATE 25 MG TAB PO SCH (19:49)
[2017-03-19] MEDS ORDERED: ATORVASTATIN 10 MG TAB PO SCH (21:00)
[2017-03-20 00:20] VITALS: BP 135/82; PULSE 75; RESP 20; TEMP 97.2; O2SAT 96
[2017-03-20] MEDS: PIPERACIL-TAZO 3.375 GM PREMIX 50 ML IV SCH ×2 (02:57→08:50)
[2017-03-20 05:19] VITALS: BP 155/87; PULSE 88; RESP 20; TEMP 98; O2SAT 96
[2017-03-20] MEDS: ACETAMINOPHEN/HYDROcodone 325 MG/5 MG TAB PO PRN ×2 (05:45→10:56)
[2017-03-20 07:51] VITALS: BP 141/63; PULSE 77; RESP 17; TEMP 97.5; O2SAT 96
[2017-03-20 08:00] VITALS: PULSE 64
[2017-03-20 08:23] VITALS: O2SAT 98
[2017-03-20] MEDS: METOPROLOL TARTRATE 25 MG TAB PO SCH (08:50)
[2017-03-20] MEDS: DOCUSATE SODIUM 50 MG/SENNA 8.6 MG TAB PO SCH (08:50)
[2017-03-20] MEDS: FOLIC ACID 1 MG TAB PO SCH (08:50)
[2017-03-20] MEDS: THIAMINE HCL 100 MG TAB PO SCH (08:50)
[2017-03-20] MEDS: MULTIVITAMINS/MINERALS THERAPEUTIC TAB PO SCH (08:50)
[2017-03-20] MEDS: SODIUM CHLORIDE 0.9% FLUSH 10 ML FLUSH IV FLUSH SCH (08:51)
--- NOTE | 2017-03-20 08:59 | HHI.PR ---
cc: Leonidas Cazares MD Subjective Subjective Notes Resting in bed Needs to go home today Pain 100% better Objective Vitals/I&O Vital Signs Date Time Temp Pulse Resp B/P (MAP) Pulse Ox O2 Delivery O2 Flow Rate FiO2 03/20/17 08:23 98 21 03/20/17 07:51 97.5 77 17 141/63 (89) 03/17/17 20:03 Room Air Labs Laboratory Tests Test 03/19/17 10:07 Blood Urea Nitrogen 25 Creatinine 1.09 Random Glucose 119 Calcium Level 8.9 Sodium Level 141 Potassium Level 3.8 Chloride Level 109 Carbon Dioxide Level 25.4 Anion Gap 7 Estimat Glomerular Filtration Rate 66 Radiology Last Impressions Gall Bladder Ultrasound 03/17/17 0000 Signed Impressions: Service Date/Time: Friday, March 17, 2017 17:31 - CONCLUSION: 1. Multiple gallstones without biliary ductal dilatation. No free fluid. Multiple nonobstructing renal calcifications. Nicolás Joy MD Cardiovascular: Regular Lungs: Clear Abdomen: Non-distended, Non-tender Extremities: No edema A/P Problem List: (1) Coronary artery disease ICD Codes: I25.10 - Atherosclerotic heart disease of [place] coronary artery without angina pectoris (2) Cholecystitis ICD Codes: K81.9 - Cholecystitis, unspecified (3) Near syncope ICD Codes: R55 - Syncope and collapse (4) Hypercalcemia ICD Codes: E83.52 - Hypercalcemia (5) RAKAN (acute kidney injury) ICD Codes: N17.9 - Acute kidney failure, unspecified Status: Acute (6) Alcohol abuse ICD Codes: F10.10 - Alcohol abuse, uncomplicated Assessment and Plan 76 year old male with RUQ pain; findings of cholecystis; high cardiac risk for surgical procedure -Tolerating regular diet -DC Zosyn; Cipro -GS clear for DC -[facility]would need Cardiac clearance prior to any surgical procedure -I left our office information just in case Attending Note - Dr. Sage Before any surgery, needs ECHO to confirm stability of cardiac function, as pt. is an EXTREMELY poor historian Abdomen benign. The exam, history, and the medical decision-making described in the above note were completed with the assistance of the mid-level provider. I reviewed and agree with the findings presented. I attest that I had a osgg-nr-jioj encounter with the patient on the same day, and personally performed and documented my assessment and findings in the medical record. Heidi Lehman Mar 20, 2017 08:59 Leonidas Cazares MD Mar 20, 2017 17:58
[2017-03-20] MEDS ORDERED: CIPROFLOXACIN 500 MG TAB PO SCH (09:00)
[2017-03-20] MEDS ORDERED: ASPIRIN 81 MG CHEW TAB PO SCH (09:00)
[2017-03-20] MEDS ORDERED: LISINOPRIL 5 MG TAB PO SCH (09:00)
[2017-03-20] MEDS ORDERED: CIPR-9 PO (09:01)
--- NOTE | 2017-03-20 10:09 | HHI.PR ---
Subjective Remarks feels great tolerating po well no nausea or vomiting or abdominal pain telemetry - in SR review previous tracings- intermittent a fib- rate controlled Objective Vitals Vital Signs Date Time Temp Pulse Resp B/P (MAP) Pulse Ox O2 Delivery O2 Flow Rate FiO2 03/20/17 08:23 98 21 03/20/17 07:51 97.5 77 17 141/63 (89) 96 03/20/17 05:19 98.0 88 20 155/87 (109) 96 03/20/17 00:20 97.2 75 20 135/82 (99) 96 03/19/17 20:00 79 03/19/17 19:44 96.5 85 124/82 (96) 100 03/19/17 16:00 97.7 74 18 126/68 (87) 97 03/19/17 12:00 96.9 74 19 118/72 (87) 94 I/O 03/19/17 03/19/17 03/19/17 03/20/17 03/20/17 03/20/17 07:00 15:00 23:00 07:00 15:00 23:00 Intake Total 730 ml 500 ml 830 ml 760 ml Balance 730 ml 500 ml 830 ml 760 ml Intake Oral 680 ml 780 ml 760 ml IV Total 50 ml 500 ml 50 ml # Voids 3 6 4 # Bowel Movements 0 1 Result Diagram: 03/18/17 0730 03/19/17 1007 Imaging Last Impressions Gall Bladder Ultrasound 03/17/17 0000 Signed Impressions: Service Date/Time: Friday, March 17, 2017 17:31 - CONCLUSION: 1. Multiple gallstones without biliary ductal dilatation. No free fluid. Multiple nonobstructing renal calcifications. Nicolás Joy MD Objective Remarks awake and alert, no acute distress anicteric lungs- no rales regular rhyhm abdomen soft, nontender, negative Mohan's extremeities no edema A/P Problem List: (1) Near syncope ICD Code: R55 - Syncope and collapse (2) RAKAN (acute kidney injury) ICD Code: N17.9 - Acute kidney failure, unspecified Status: Acute (3) Cholecystitis ICD Code: K81.9 - Cholecystitis, unspecified (4) Hypercalcemia ICD Code: E83.52 - Hypercalcemia (5) Alcohol abuse ICD Code: F10.10 - Alcohol abuse, uncomplicated Assessment and Plan 76 years old male 1. Near Syncope: likely secondary to significant dehydration/hypovolemia.- resolved 2. RAKAN: Severe. Creatinine 1.83, previously 0.90 on 08/21/08.resolved, 3. Cholecystitis: Severe RUQ pain/tenderness to palpation. Gallbladder US w/ thickened gallbladder wall and multiple stones, images reviewed by me. Will start on empiric antibiotics w/ Zosyn IV in light of symptoms and leukocytosis. cleared for DC OP ff up po ciprofloxacin 4. Hypercalcemia: - improved, likely secondary to severe dehydration. IVF for hydration, repeat labs in am for trend. 5. Alcohol Abuse: Drinks daily, high risk for withdrawal, - counselled 6. History of CAD - [place] 2008 , Cardiomyopathy- clinically not in failure, no complains of CP Paroxysmal atrial fibrillation- now in SR d/w him- to [facility]- set up with a wrapper sizer Needs to be on OAC- was on Coumadin at one point in the apst - DC by [facility] Used to be on Coreg and statin here started on Metoprolol, statin, ASA d/w him I will write for eliquis and Metorprolol and for him to go to [facility] to see PCP and wrapper sizer will need eventual surgery when cleared by Cardiology through [facility] po pain meds no history of bleeding Inocencio Toledo MD Mar 20, 2017 10:09
[2017-03-20] MEDS ORDERED: LISI-519 PO (10:22)
[2017-03-20] MEDS ORDERED: THERM PO (10:22)
[2017-03-20] MEDS ORDERED: HYDR-3516 PO (10:22)
[2017-03-20] MEDS ORDERED: LIPI10TA PO (10:22)
[2017-03-20] MEDS ORDERED: METO25TA3 PO (10:22)
[2017-03-20] MEDS ORDERED: APIX5TAB PO (10:22)
[2017-03-20] MEDS ORDERED: ASPI81 PO (10:27)
--- NOTE | 2017-03-20 10:29 | HHI.DS ---
Discharge Summary Admission Date Mar 17, 2017 at 19:05 Discharge Date: Mar 20, 2017 Admitting Diagnosis RAKAN, cholecystitis (1) Near syncope ICD Code: R55 - Syncope and collapse Diagnosis: Principal (2) RAKAN (acute kidney injury) ICD Code: N17.9 - Acute kidney failure, unspecified Diagnosis: Principal Status: Acute (3) Cholecystitis ICD Code: K81.9 - Cholecystitis, unspecified Diagnosis: Principal (4) Hypercalcemia ICD Code: E83.52 - Hypercalcemia Diagnosis: Secondary (5) Alcohol abuse ICD Code: F10.10 - Alcohol abuse, uncomplicated Diagnosis: Secondary Procedures none Brief History - From Admission This is a 36-year-old male with PMH of HTN, Hyperlipidemia, CAD and Alcohol Abuse who presented to the ER w/ complaints of RUQ pain, generalized weakness and lightheadedness. Pt reports symptoms started 2 days ago. RUQ pain is constant, non-radiating, severe, 10/10. No alleviating or exacerbating factors. Denies associated nausea or vomiting. Today, reports intense lightheadedness and near syncopal event. No fall or head trauma. On arrival, BP 115/57, HR 112, O2 sat 94% on RA, Afebrile. WBC 11.7. Creatinine 1.83, previously 0.90 on 08/21/08. Calcium 11.6. LFTs normal. Gallbladder US with multiple gallstones, no biliary ductal dilatation. On exam, pt w/ significant RUQ tenderness to palpation. S/p Morphine in ER w/ some improvement. CBC/BMP: 03/18/17 0730 03/19/17 1007 Significant Findings Laboratory Tests Test 03/17/17 16:40 03/18/17 00:42 03/18/17 07:30 03/19/17 10:07 White Blood Count 11.7 TH/MM3 (4.0-11.0) Neutrophils (%) (Auto) 73.1 % (16.0-70.0) Monocytes (%) (Auto) 8.7 % (0.0-8.0) 8.9 % (0.0-8.0) Neutrophils # (Auto) 8.5 TH/MM3 (1.8-7.7) Monocytes # (Auto) 1.0 TH/MM3 (0-0.9) Activated Partial Thromboplast Time 22.5 SEC (24.3-30.1) Blood Urea Nitrogen 50 MG/DL (7-18) 41 MG/DL (7-18) 25 MG/DL (7-18) Creatinine 1.83 MG/DL (0.60-1.30) 1.38 MG/DL (0.60-1.30) Random Glucose 166 MG/DL (74-106) 119 MG/DL (74-106) Calcium Level 11.6 MG/DL (8.5-10.1) Estimat Glomerular Filtration Rate 36 ML/MIN (>89) 50 ML/MIN (>89) 66 ML/MIN (>89) Protein Corrected Calcium 11.4 MG/DL (8.5-10.1) Total Bilirubin 1.2 MG/DL (0.2-1.0) Chloride Level 109 MEQ/L (98-107) 109 MEQ/L (98-107) Imaging Last Impressions Gall Bladder Ultrasound 03/17/17 0000 Signed Impressions: Service Date/Time: Friday, March 17, 2017 17:31 - CONCLUSION: 1. Multiple gallstones without biliary ductal dilatation. No free fluid. Multiple nonobstructing renal calcifications. Nicolás Joy MD PE at Discharge awake and alert, no acute distress anicteric lungs- no rales regular rhyhm abdomen soft, nontender, negative Mohan's extremeities no edema Pt update on day of discharge afebrile no abdominal pain, nausea or vomiting telemetry in SR no sign so of heart failure no chest pains Hospital Course 76 years old male 1. Near Syncope: likely secondary to significant dehydration/hypovolemia.- resolved 2. RAKAN: Severe. Creatinine 1.83, previously 0.90 on 08/21/08.resolved, 3. Cholecystitis: Severe RUQ pain/tenderness to palpation. Gallbladder US w/ thickened gallbladder wall and multiple stones, images reviewed by me. OP ff up po ciprofloxacin 4. Hypercalcemia: - improved, likely secondary to severe dehydration. IVF for hydration, repeat labs in am for trend. 5. Alcohol Abuse: Drinks daily, high risk for withdrawal, - counselled 6. History of CAD - [place] 2008 , Cardiomyopathy- clinically not in failure, no complains of CP Paroxysmal atrial fibrillation- now in SR d/w him- to go to [place]- set up with a adjunct faculty Needs to be on OAC- was on Coumadin at one point in the apst - DC by [place] Used to be on Coreg and statin here started on Metoprolol, statin, ASA d/w him I will write for eliquis and Metorprolol and for him to go to [place] to see PCP and adjunct faculty will need eventual surgery when [facility] pain meds no history of bleeding Pt Condition on Discharge: Stable Discharge Disposition: Discharge Home Discharge Time: <= 30 minutes Discharge Instructions DIET: Follow Instructions for: Heart Healthy Diet Speech Therapy-Diet Recommends: Regular Activities you can perform: Weight Bearing as Katherine Activities to Avoid: Prolonged Standing, Strenuous Activity Follow up Referrals: Cardiology - 2-3 Days with [facility] PCP Follow-up - 2-3 Days with [facility] with Leonidas Cazares MD New Medications: Ciprofloxacin (Cipro) 500 Mg Tab 500 MG PO BID for Infection for 7 Days, #14 TAB 0 Refills Apixaban (Eliquis) 5 Mg Tab 5 MG PO BID for AFIB for 30 Days, #60 TAB Aspirin (Tgt Aspirin) 81 Mg Chw 81 MG PO DAILY for CAD/afib for 90 Days, EA Atorvastatin (Lipitor) 10 Mg Tab 10 MG PO HS for CAD MDD 20 for 30 Days, #30 TAB Hydrocodone/Acetaminophen (Hydrocodone-Acetamin 5-325 mg) 5 Mg-325 Mg Tablet 1 TAB PO Q6HR PRN for PAIN SCALE 3 TO 5, #30 TAB Lisinopril (Lisinopril) 5 Mg Tab 5 MG PO DAILY for CMP for 30 Days, #30 TAB Metoprolol Tartrate (Metoprolol Tartrate) 25 Mg Tab 12.5 MG PO BID for CAD/afib for 30 Days, #30 TAB Multiple Vitamins W/ Minerals (Thera M Plus) 1 Tab 1 TAB PO DAILY for ETOH for 30 Days, #30 TAB 1 Refill Inocencio Toledo MD Mar 20, 2017 10:28
[2017-03-20 12:00] VITALS: BP 103/65; PULSE 72; RESP 18; TEMP 97.5; O2SAT 95
[2017-03-20] MEDS ORDERED: APIXABAN 5 MG TABLET PO SCH ×2 (13:00→21:00)
== END 2017-03-20 12:50 | disposition home or self-care (01) | DRG 683 ==
LOC: NEPC 15:54 → NEDA 19:05 → N07A 20:38
PROVIDERS: ADMIT Internal Medicine; ATTEND Internal Medicine
DX: N17.9 Acute kidney failure, unspecified (principal); I48.92 Unspecified atrial flutter; K80.10 Calculus of gallbladder with chronic cholecystitis without obstruction; Z86.74 Personal history of sudden cardiac arrest; E83.52 Hypercalcemia; I48.0 Paroxysmal atrial fibrillation; E86.0 Dehydration; I10 Essential (primary) hypertension; I08.0 Rheumatic disorders of both mitral and aortic valves; E78.5 Hyperlipidemia, unspecified; I25.5 Ischemic cardiomyopathy; I25.10 Atherosclerotic heart disease of native coronary artery without angina pectoris; I25.2 Old myocardial infarction; R49.0 Dysphonia; F10.10 Alcohol abuse, uncomplicated; Y90.0 Blood alcohol level of less than 20 mg/100 ml; Z87.891 Personal history of nicotine dependence; Z86.711 Personal history of pulmonary embolism; Z91.14 Patient's other noncompliance with medication regimen; Z95.5 Presence of coronary angioplasty implant and graft
CPT/HCPCS: 76705; 80048; 80053; 80076; 80307; 82948; 83690; 84155; 84484; 85025; 85610; 85730; 93005; 93306; 96360; J2270; J2543; J7030

== ENCOUNTER 2017-04-14 17:21 | Emergency (ER) | payer MEDICARE, OTHER ==
[~2017-04-14] VITALS: Ht 172.7 cm; Wt 74.0 kg
[~2017-04-14 17:21] MED LIST changes: +APIX5TAB PO; -CARV3.125 PO; +CIPR-9 PO; -CLOP75 PO; +HYDR-3516 PO; -LASI20TA PO; +LIPI10TA PO; +LISI-519 PO; +METO25TA3 PO; -PERC7.5T13 PO; -POTA-243 PO; +THERM PO; -WARF2.5 PO; -ZOCO10TA PO
[2017-04-14 17:24] VITALS: BP 174/99; PULSE 80; RESP 20; TEMP 98.2; O2SAT 97
--- NOTE | 2017-04-14 18:38 | PD ---
HPI Chief Complaint: Abdominal Pain Time Seen by Provider: 17:52 Travel History International Travel<30 days: No Contact w/Intl Traveler<30days: No Traveled to known affect area: No History of Present Illness HPI 76-year-old man, presents to the emergency department complaining of right upper quadrant abdominal pain. Is a history of hypertension, hyper lipidemia, CAD, and alcohol abuse. He was seen recently of right upper quadrant abdominal pain, was found to have gallstones, right upper quadrant tenderness, was treated medically for cholecystitis. He was seen by surgery recommended cardiac evaluation and outpatient follow-up. Ultrasound showed thickened wall and multiple gallstones at that point. Patient felt better after his initial evaluation there. He is done well after leaving the hospital. He was on Cipro. He also developed A. fib RVR while in the hospital. 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 Tonight, about 3 hours ago, he started getting recurrent right upper quadrant abdominal pain. History Past Medical History Narrative Medical Hypertension Hyperlipidemia CAD Alcohol abuse History of recent A. fib. Tetanus Vaccination: > 5 Years Influenza Vaccination: No Social History Alcohol Use: Yes (ocassionally) Tobacco Use: No (quit 2007) Allergies-Medications (Allergen,Severity, Reaction): Coded Allergies: No Known Allergies (Verified Allergy, Unknown, 04/14/17) Reported Meds & Prescriptions Reported Meds & Active Scripts Active Tgt Aspirin (Aspirin) 81 Mg Chw 81 Mg PO DAILY 90 Days Thera M Plus (Multivitamins/Minerals Therapeutic) 1 Tab 1 Tab PO DAILY 30 Days Hydrocodone-Acetamin 5-325 mg (Hydrocodone/Acetaminophen) 5 Mg-325 Mg Tablet 1 Tab PO Q6HR PRN Lisinopril 5 Mg Tab 5 Mg PO DAILY 30 Days Metoprolol Tartrate 25 Mg Tab 12.5 Mg PO BID 30 Days Lipitor (Atorvastatin Calcium) 10 Mg Tab 10 Mg PO HS MDD 20 30 Days Eliquis (Apixaban) 5 Mg Tab 5 Mg PO BID 30 Days Review of Systems Except as stated in HPI: all other systems reviewed are Neg Physical Exam Narrative GENERAL: Well-appearing 76-year-old man, no acute distress. SKIN: Focused skin assessment warm/dry. HEAD: Atraumatic. Normocephalic. EYES: Pupils equal and round. No scleral icterus. No injection or drainage. ENT: No nasal bleeding or discharge. Mucous membranes pink and moist. NECK: Trachea midline. No JVD. CARDIOVASCULAR: Regular rate and rhythm. No murmur appreciated. RESPIRATORY: No accessory muscle use. Clear to auscultation. Breath sounds equal bilaterally. GASTROINTESTINAL: Abdomen is flat and soft. Mild right upper quadrant tenderness, no rebound or guarding. Negative Mohan's. MUSCULOSKELETAL: No obvious deformities. No clubbing. No cyanosis. No edema. NEUROLOGICAL: Awake and alert. No obvious cranial nerve deficits. Motor grossly within normal limits. Normal speech. PSYCHIATRIC: Appropriate mood and affect; insight and judgment normal. Data Data Last Documented VS Vital Signs Date Time Temp Pulse Resp B/P (MAP) Pulse Ox O2 Delivery O2 Flow Rate FiO2 04/14/17 17:51 16 04/14/17 17:24 98.2 80 174/99 (124) 97 Room Air Orders Orders Complete Blood Count With Diff (04/14/17 17:55) Comprehensive Metabolic Panel (04/14/17 17:55) Lipase (04/14/17 17:55) Iv Access Insert/Monitor (04/14/17 17:55) Us Abdomen Gallbladder (04/14/17 ) MDM Medical Decision Making Medical Screen Exam Complete: Yes Emergency Medical Condition: Yes Interpretation(s) LABS: Right upper quadrant ultrasound: Cholelithiasis. No definite gallbladder wall thickening, pericholecystic fluid, or sonographic Mohan sign. Differential Diagnosis Cholecystitis, biliary colic, cholelithiasis, gastritis, pancreatitis, other Narrative Course Medical decision making The 76 woman who presents to the emergency department complaining of recurrent right upper quadrant abdominal pain. Likely biliary colic. Fairly benign exam. Ultrasound does not show any definite evidence of cholecystitis. Recommend continued outpatient follow-up as planned. Diagnosis Primary Impression: Cholelithiasis Additional Instructions: Continue pain medicine as previously prescribed. Follow-up with her primary doctor as planned. Return to the emergency department for any new or worsening symptoms. Med/Other Pt SpecificInfo: No Change to Meds Disposition: 01 DISCHARGE HOME Condition: Stable Suleman Medrano MD Apr 14, 2017 18:38
--- NOTE | 2017-04-14 18:39 | RADRPT ---
EXAM DATE/TIME: 04/14/2017 18:02 [facility] COMPARISON: US ABDOMEN - GALLBLADDER, March 17, 2017, 17:31. INDICATIONS : Right upper quadrant pain. MEDICAL HISTORY : Myocardial infarction. Hypercholesterolemia. Pulmonary embolism. Renal failure. SURGICAL HISTORY : Coronary artery stent. Oral surgery. ENCOUNTER: Subsequent ACUITY: 1 month PAIN SCORE: 6/10 LOCATION: Right upper quadrant MEASUREMENTS: LIVER: 14.0 cm length COMMON DUCT: 6 mm RIGHT KIDNEY: 10.5 x 3.5 x 5.8 cm FINDINGS: LIVER: Normal echotexture without focal lesion or ductal dilatation. COMMON DUCT: No intraluminal mass or stone visualized. GALLBLADDER: The gallbladder contains multiple gallstones which are unchanged compared to previous examination. No wall thickening, pericholecystic fluid or sonographic Mohan's sign is noted. PANCREAS: The visualized portions are within normal limits. RIGHT KIDNEY: No evidence of hydronephrosis, stone, or mass. CONCLUSION: 1. Cholelithiasis. 2. No definite gallbladder wall thickening, pericholecystic fluid or sonographic Mohan's sign. Kj Sue MD on April 14, 2017 at 18:32 Board Certified Radiologist. This report was verified electronically.
[2017-04-14 18:55] LABS: AUTOMATED NEUTROPHIL # 3.7 TH/MM3 (1.8-7.7); BASOPHIL % 0.6 % (0.0-2.0); EOSINOPHIL # 0.3 TH/MM3 (0-0.4); EOSINOPHIL % 4.3 % (0.0-4.0); HEMOGLOBIN 13.6 GM/DL (13.0-17.0); LYMPH % 26.5 % (9.0-44.0); LYMPHOCYTE # 1.7 TH/MM3 (1.0-4.8); MEAN CORPUSCULAR HEMOGLOBIN 30.3 PG (27.0-34.0); MEAN PLATELET VOLUME 7.9 FL (7.0-11.0); MONO % 10.3 % (0.0-8.0); MONOCYTE # 0.7 TH/MM3 (0-0.9); NEUT % 58.3 % (16.0-70.0); PLATELET COUNT 177 TH/MM3 (150-450); RED BLOOD COUNT 4.49 MIL/MM3 (4.50-5.90); RED CELL DISTRIBUTION WIDTH 13.1 % (11.6-17.2); WHITE BLOOD COUNT 6.3 TH/MM3 (4.0-11.0)
[2017-04-14] MEDS ORDERED: HYDR-3516 PO ×2 (19:09→19:57)
[2017-04-14 19:10] LABS: ALBUMIN 3.7 GM/DL (3.4-5.0); AST (GOT) 84 U/L (15-37); BICARBONATE 27.2 MEQ/L (21.0-32.0); BLOOD UREA NITROGEN 17 MG/DL (7-18); CALCIUM 9.7 MG/DL (8.5-10.1); CHLORIDE 105 MEQ/L (98-107); CREATININE 1.11 MG/DL (0.60-1.30); GLOMERULAR FILTRATION RATE 65 ML/MIN (>89); GLUCOSE,RANDOM 119 MG/DL (74-106); SODIUM (NA) 139 MEQ/L (136-145)
[2017-04-14 19:15] LABS: ALKALINE PHOSPHATASE 79 U/L (45-117); ALT (GPT) 65 U/L (12-78); TOTAL BILIRUBIN ADULT 0.7 MG/DL (0.2-1.0); TOTAL PROTEIN 6.8 GM/DL (6.4-8.2)
[2017-04-14 19:20] VITALS: BP 142/75; PULSE 77; RESP 16; O2SAT 96
--- NOTE | 2017-04-14 19:36 | PD ---
Data Data Last Documented VS Vital Signs Date Time Temp Pulse Resp B/P (MAP) Pulse Ox O2 Delivery O2 Flow Rate FiO2 04/14/17 20:03 04/14/17 19:20 77 16 96 Room Air 04/14/17 17:24 98.2 Orders Orders Complete Blood Count With Diff (04/14/17 17:55) Comprehensive Metabolic Panel (04/14/17 17:55) Lipase (04/14/17 17:55) Iv Access Insert/Monitor (04/14/17 17:55) Us Abdomen Gallbladder (04/14/17 ) Ed Discharge Order (04/14/17 19:59) Labs Laboratory Tests Test 04/14/17 18:15 White Blood Count 6.3 TH/MM3 Red Blood Count 4.49 MIL/MM3 Hemoglobin 13.6 GM/DL Hematocrit 40.0 % Mean Corpuscular Volume 89.0 FL Mean Corpuscular Hemoglobin 30.3 PG Mean Corpuscular Hemoglobin Concent 34.0 % Red Cell Distribution Width 13.1 % Platelet Count 177 TH/MM3 Mean Platelet Volume 7.9 FL Neutrophils (%) (Auto) 58.3 % Lymphocytes (%) (Auto) 26.5 % Monocytes (%) (Auto) 10.3 % Eosinophils (%) (Auto) 4.3 % Basophils (%) (Auto) 0.6 % Neutrophils # (Auto) 3.7 TH/MM3 Lymphocytes # (Auto) 1.7 TH/MM3 Monocytes # (Auto) 0.7 TH/MM3 Eosinophils # (Auto) 0.3 TH/MM3 Basophils # (Auto) 0.0 TH/MM3 CBC Comment DIFF FINAL Differential Comment Blood Urea Nitrogen 17 MG/DL Creatinine 1.11 MG/DL Random Glucose 119 MG/DL Total Protein 6.8 GM/DL Albumin 3.7 GM/DL Calcium Level 9.7 MG/DL Alkaline Phosphatase 79 U/L Aspartate Amino Transf (AST/SGOT) 84 U/L Alanine Aminotransferase (ALT/SGPT) 65 U/L Total Bilirubin 0.7 MG/DL Sodium Level 139 MEQ/L Potassium Level 4.4 MEQ/L Chloride Level 105 MEQ/L Carbon Dioxide Level 27.2 MEQ/L Anion Gap 7 MEQ/L Estimat Glomerular Filtration Rate 65 ML/MIN Lipase 111 U/L [facility] Supervised Visit with ASH: No Narrative Course Patient CARE assumed from Dr. Medrano at 1900, this is a 76-year-old male with a history of cholelithiasis presents emergency department with abdominal pain. I was asked to follow-up the labs and disposition patient appropriate, ultrasound has already been negative for cholecystitis here tonight. Patient appears comfortable, Dr. Medrano wrote a prescription for opiate pain medication but did not sign it prior to leaving for shift, I have destroyed the prescription and issued another one. Diagnosis Primary Impression: Cholelithiasis Additional Instruction: Continue pain medicine as previously prescribed. Follow-up with her primary doctor as planned. Return to the emergency department for any new or worsening symptoms. Scripts Hydrocodone/Acetaminophen (Hydrocodone-Acetamin 5-325 mg) 5 Mg-325 Mg Tablet 1 TAB PO Q6HR Y for PAIN SCALE 3 TO 5, #15 TAB Prov: Kj Whitfield MD 04/14/17 Disposition: 01 DISCHARGE HOME Condition: Stable Kj Whitfield MD Apr 14, 2017 19:36
== END 2017-04-14 20:19 | disposition home or self-care (01) ==
LOC: NEPE 17:21
DX: K80.20 Calculus of gallbladder without cholecystitis without obstruction (principal); I10 Essential (primary) hypertension; E78.5 Hyperlipidemia, unspecified; I48.91 Unspecified atrial fibrillation
CPT/HCPCS: 76705; 80053; 83690; 85025; 99284

== ENCOUNTER 2017-04-21 09:45 | Inpatient (IN) | payer OTHER, MEDICARE ==
[~2017-04-21] VITALS: Ht 172.7 cm; Wt 7.5 kg
[~2017-04-21 09:45] MED LIST changes: -CIPR-9 PO
[2017-04-21 09:47] VITALS: BP 113/59; PULSE 72; RESP 14; TEMP 97.9; O2SAT 98
[2017-04-21] MEDS ORDERED: LEVO25TA4 PO (10:22)
[2017-04-21] MEDS ORDERED: CARV3.12 PO (10:22)
[2017-04-21] MEDS ORDERED: SIMV40TA PO (10:22)
[2017-04-21] MEDS ORDERED: ENAL2.5T PO (10:22)
[2017-04-21] MEDS ORDERED: TYLE325T PO (10:22)
[2017-04-21] MEDS ORDERED: ALFU10TA2 PO (10:22)
[2017-04-21 10:30] VITALS: O2SAT 98
[2017-04-21] MEDS ORDERED: SODIUM CHLOR 0.9% 1000 ML INJ 1,000 ML IV SCH (10:34)
[2017-04-21] MEDS ORDERED: MORPHINE SULFATE 4 MG/ML INJ IV PUSH ONE (10:45)
[2017-04-21] MEDS ORDERED: SODIUM CHLORIDE 0.9% FLUSH 10 ML FLUSH IV FLUSH PRN ×2 (10:45→13:15)
[2017-04-21] MEDS ORDERED: ONDANSETRON HCL 4 MG/2 ML VIAL IVP ONE (10:45)
[2017-04-21 11:02] LABS: AUTOMATED NEUTROPHIL # 3.6 TH/MM3 (1.8-7.7); BASOPHIL # 0.1 TH/MM3 (0-0.2); EOSINOPHIL # 0.2 TH/MM3 (0-0.4); EOSINOPHIL % 3.8 % (0.0-4.0); HEMATOCRIT 41.1 % (39.0-51.0); LYMPH % 17.7 % (9.0-44.0); MEAN CELL VOLUME 88.6 FL (80.0-100.0); MEAN CORPUSCULAR HEMOGLOBIN 30.2 PG (27.0-34.0); MEAN PLATELET VOLUME 8.1 FL (7.0-11.0); MONO % 10.8 % (0.0-8.0); MONOCYTE # 0.6 TH/MM3 (0-0.9); NEUT % 65.7 % (16.0-70.0); PLATELET COUNT 219 TH/MM3 (150-450); RED BLOOD COUNT 4.64 MIL/MM3 (4.50-5.90); RED CELL DISTRIBUTION WIDTH 13.9 % (11.6-17.2); WHITE BLOOD COUNT 5.4 TH/MM3 (4.0-11.0)
--- NOTE | 2017-04-21 11:06 | PD ---
HPI Chief Complaint: GI Complaint Time Seen by Provider: 10:33 Travel History International Travel<30 days: No Contact w/Intl Traveler<30days: No Traveled to known affect area: No History of Present Illness HPI [facility] and his arriving here complaining of intermittent right upper quadrant/right flank right lower quadrant pain that has been ongoing recently for the last 4 days. Patient states that his this has been going on for at least a month during initial work workup he was found to have gallstones by the [place]. PCP: DEBORAH Past surgical history: Denies GI surgery Past medical history significant for gallstones and hypertension PFSH Past Medical History Hx Anticoagulant Therapy: Yes (asa, eloquis) Arthritis: Yes (L shoulder) Blood Disorders: No Heart Rhythm Problems: No Cancer: No Cardiac Catheterization: Yes Cardiovascular Problems: Yes High Cholesterol: Yes Chest Pain: Yes Congestive Heart Failure: No Cerebrovascular Accident: No Diabetes: No Diminished Hearing: No Endocrine: No Gastrointestinal Disorders: Yes GERD: No Genitourinary: Yes Hiatal Hernia: No Hypertension: Yes Immune Disorder: No Implanted Vascular Access Dvce: No Kidney Stones: No Musculoskeletal: Yes Neurologic: Yes Psychiatric: No Reproductive: No Respiratory: No Immunizations Current: Yes Migraines: No Myocardial Infarction: Yes (07/19) Renal Failure: No Seizures: No Thyroid Disease: Yes Ulcer: No Past Surgical History Abdominal Surgery: No Cardiac Surgery: Yes (X1 stent placed 2008) Coronary Stent: Yes Ear Surgery: No Endocrine Surgery: No Eye Surgery: Yes (steel removed from L eye X40 yrs ago) Genitourinary Surgery: No Gynecologic Surgery: No Oral Surgery: Yes (pulled top teeth/dentures now) Thoracic Surgery: No Other Surgery: Yes Social History Alcohol Use: Yes (ocassionally) Tobacco Use: No (quit 2007) Substance Use: No Allergies-Medications (Allergen,Severity, Reaction): Coded Allergies: No Known Allergies (Verified Allergy, Unknown, 04/21/17) Reported Meds & Prescriptions Reported Meds & Active Scripts Active Hydrocodone-Acetamin 5-325 mg (Hydrocodone/Acetaminophen) 5 Mg-325 Mg Tablet 1 Tab PO Q6HR PRN Lisinopril 5 Mg Tab 5 Mg PO DAILY 30 Days Reported Simvastatin 40 Mg Tab 40 Mg PO HS Levothyroxine (Levothyroxine Sodium) 25 Mcg Tab 25 Mcg PO DAILY Enalapril (Enalapril Maleate) 2.5 Mg Tab 2.5 Mg PO DAILY Carvedilol 3.125 Mg Tab 3.125 Mg PO BID Alfuzosin ER 24 HR 10 Mg Tab 10 Mg PO DAILY Tylenol (Acetaminophen) 325 Mg Tab 325 Mg PO Q6H PRN Review of Systems General / Constitutional: No: Fever Eyes: No: Visual changes HENT: No: Headaches Cardiovascular: No: Chest Pain or Discomfort Respiratory: No: Shortness of Breath Gastrointestinal: Positive: Abdominal Pain Genitourinary: No: Dysuria Musculoskeletal: No: Pain Skin: No Rash Neurologic: No: Weakness Psychiatric: No: Depression Endocrine: No: Polydipsia Hematologic/Lymphatic: No: Easy Bruising Physical Exam Narrative GENERAL: SKIN: Warm and dry. HEAD: Atraumatic. Normocephalic. EYES: Pupils equal and round. No scleral icterus. No injection or drainage. ENT: No nasal bleeding or discharge. Mucous membranes pink and moist. NECK: Trachea midline. No JVD. CARDIOVASCULAR: Regular rate and rhythm. RESPIRATORY: No accessory muscle use. Clear to auscultation. Breath sounds equal bilaterally. GASTROINTESTINAL: Abdomen soft, mild tenderness to percussion over right upper quadrant and right lower quadrant, nondistended. MUSCULOSKELETAL: Extremities without clubbing, cyanosis, or edema. No obvious deformities. NEUROLOGICAL: Awake and alert. No obvious cranial nerve deficits. Motor grossly within normal limits. Five out of 5 muscle strength in the arms and legs. Normal speech. PSYCHIATRIC: Appropriate mood and affect; insight and judgment normal. Data Data Last Documented VS Vital Signs Date Time Temp Pulse Resp B/P (MAP) Pulse Ox O2 Delivery O2 Flow Rate FiO2 04/21/17 10:30 98 Room Air 04/21/17 09:47 97.9 72 14 Orders Orders Complete Blood Count With Diff (04/21/17 10:34) Comprehensive Metabolic Panel (04/21/17 10:34) Lipase (04/21/17 10:34) Urinalysis - C+S If Indicated (04/21/17 10:34) Ct Abd/Pel W/O Iv Contrast (04/21/17 10:34) Iv Access Insert/Monitor (04/21/17 10:34) Ecg Monitoring (04/21/17 10:34) Oximetry (04/21/17 10:34) NPO (04/21/17 10:34) Morphine Inj (Morphine Inj) (04/21/17 10:45) Ondansetron Inj (Zofran Inj) (04/21/17 10:45) Sodium Chlor 0.9% 1000 Ml Inj (Ns 1000 M (04/21/17 10:34) Sodium Chloride 0.9% Flush (Ns Flush) (04/21/17 10:45) Labs Laboratory Tests Test 04/21/17 10:30 White Blood Count 5.4 TH/MM3 Red Blood Count 4.64 MIL/MM3 Hemoglobin 14.0 GM/DL Hematocrit 41.1 % Mean Corpuscular Volume 88.6 FL Mean Corpuscular Hemoglobin 30.2 PG Mean Corpuscular Hemoglobin Concent 34.0 % Red Cell Distribution Width 13.9 % Platelet Count 219 TH/MM3 Mean Platelet Volume 8.1 FL Neutrophils (%) (Auto) 65.7 % Lymphocytes (%) (Auto) 17.7 % Monocytes (%) (Auto) 10.8 % Eosinophils (%) (Auto) 3.8 % Basophils (%) (Auto) 2.0 % Neutrophils # (Auto) 3.6 TH/MM3 Lymphocytes # (Auto) 1.0 TH/MM3 Monocytes # (Auto) 0.6 TH/MM3 Eosinophils # (Auto) 0.2 TH/MM3 Basophils # (Auto) 0.1 TH/MM3 CBC Comment DIFF FINAL Differential Comment Blood Urea Nitrogen 14 MG/DL Creatinine 1.03 MG/DL Random Glucose 102 MG/DL Total Protein 6.9 GM/DL Albumin 3.3 GM/DL Calcium Level 9.8 MG/DL Alkaline Phosphatase 394 U/L Aspartate Amino Transf (AST/SGOT) 273 U/L Alanine Aminotransferase (ALT/SGPT) 651 U/L Total Bilirubin 9.3 MG/DL Sodium Level 138 MEQ/L Potassium Level 3.6 MEQ/L Chloride Level 103 MEQ/L Carbon Dioxide Level 26.7 MEQ/L Anion Gap 8 MEQ/L Estimat Glomerular Filtration Rate 70 ML/MIN Lipase 149 U/L MDM Medical Decision Making Medical Screen Exam Complete: Yes Emergency Medical Condition: Yes Medical Record Reviewed: Yes Differential Diagnosis Cholecystitis versus cholelithiasis versus choledocholithiasis versus pancreatitis versus appendicitis versus colitis versus diverticulitis Narrative Course No leukocytosis, no anemia no shift or neutrophilia noted on CBC. However patient's complete metabolic profile had multiple abnormalities involving bilirubin, LFTs, and alk phos all of which suggest an obstructive hepatitis. CT does show cholelithiasis although it does not show any overt cholecystitis there is evidence of choledocholithiasis. Patient will be admitted for further evaluation and care Diagnosis Primary Impression: Cholelithiasis with obstructive pattern Admitting Information Admitting Physician Requests: Observation Pavan Sneed MD Apr 21, 2017 11:06
[2017-04-21 11:21] LABS: ALBUMIN 3.3 GM/DL (3.4-5.0); AST (GOT) 273 U/L (15-37); BICARBONATE 26.7 MEQ/L (21.0-32.0); BLOOD UREA NITROGEN 14 MG/DL (7-18); CALCIUM 9.8 MG/DL (8.5-10.1); CHLORIDE 103 MEQ/L (98-107); CREATININE 1.03 MG/DL (0.60-1.30); GLOMERULAR FILTRATION RATE 70 ML/MIN (>89); GLUCOSE,RANDOM 102 MG/DL (74-106); SODIUM (NA) 138 MEQ/L (136-145)
[2017-04-21 11:25] LABS: ALKALINE PHOSPHATASE 394 U/L (45-117); ALT (GPT) 651 U/L (12-78); TOTAL BILIRUBIN ADULT 9.3 MG/DL (0.2-1.0); TOTAL PROTEIN 6.9 GM/DL (6.4-8.2)
--- NOTE | 2017-04-21 11:49 | RADRPT ---
EXAM DATE/TIME: 04/21/2017 11:36 [facility] COMPARISON: No previous studies available for comparison. INDICATIONS : Simon like bowel movements, right abdominal pain. Calculi. ORAL CONTRAST: No oral contrast ingested. RADIATION DOSE: 9.76 CTDIvol (mGy) MEDICAL HISTORY : Cardiovascular disease. Hypertension. Cholithiasis SURGICAL HISTORY : None. ENCOUNTER: Initial ACUITY: 4 - 6 days PAIN SCALE: 7/10 LOCATION: Right abdomen TECHNIQUE: Volumetric scanning of the abdomen and pelvis was performed. Using automated exposure control and ad justment of the mA and/or kV according to patient size, radiation dose was kept as low as reasonably achievable to obtain optimal diagnostic quality images. DICOM format image data is available electro nically for review and comparison. FINDINGS: The lung base is are clear. 2 cm cystic mass right lobe liver with calcifications nonspecific Multiple calcified gallstones Spleen is unremarkable. Calcification in the uncinate process of the pancreas in the region of the c ommon duct. Adrenal glands appear normal. There are no renal calculi 2 Small exophytic cyst 1 cm right kidney No calcifications along the expected course of either ureter Moderate vascular calcification Abdominal wall intact. Diverticuli in the pelvis without diverticulitis Large prostate with prominent bladder Right inguinal hernia containing only fat Degenerative changes in the lumbar spine. CONCLUSION: 1. Very large prostate, bladder 2. Multiple calcified gallstones and benign-appearing gallbladder 3. Calcification uncinate process pancreas region common duct. Common duct stone cannot be excluded. 4. There are no renal calculi identified Adam House MD FACR on April 21, 2017 at 11:43 Board Certified Radiologist. This report was verified electronically.
[2017-04-21] MEDS ORDERED: BISACODYL 10 MG SUPP RECTAL PRN (13:15)
[2017-04-21] MEDS ORDERED: NALOXONE HCL 0.4 MG/ML AMP IV PUSH PRN (13:15)
[2017-04-21] MEDS ORDERED: MAGNESIUM HYDROXIDE SUSP 30 ML CUP PO PRN (13:15)
[2017-04-21] MEDS ORDERED: LACTULOSE SYRUP 20 GM/30 ML CUP PO PRN (13:15)
[2017-04-21] MEDS ORDERED: ONDANSETRON HCL 4 MG/2 ML VIAL IVP PRN (13:15)
[2017-04-21] MEDS ORDERED: SENNOSIDES 8.6 MG TAB PO PRN (13:15)
[2017-04-21 13:50] VITALS: BP 118/62
[2017-04-21 14:15] VITALS: BP 103/66; PULSE 68; RESP 18; TEMP 98.2; O2SAT 97
[2017-04-21] MEDS: SODIUM CHLOR 0.9% 1000 ML INJ 1,000 ML IV SCH (14:22)
[2017-04-21 14:30] LABS: BACTERIA, URINE RARE /hpf; BILIRUBIN, URINE MOD (NEG); BLOOD, URINE NEG (NEG); GLUCOSE,URINE NEG (NEG); HYALINE CAST, URINE 6 /lpf (RARE); KETONE, URINE 10 mg/dL (NEG); MUCUS URINE MANY /lpf (OCC); NITRITE,URINE NEG (NEG); PH, URINE 5.5 (5.0-8.5); SQUAMOUS EPITHELIAL CELL URINE 2 /hpf (0-5); URINE LEUKOCYTE ESTERASE NEG (NEG)
[2017-04-21 14:31] LABS: URINE COLOR DARK-BROWN (YELLW/STRAW)
--- NOTE | 2017-04-21 15:07 | PD.CONS ---
HPI History of Present Illness This is a 76 year old M with medical history significant for HTN, hyperlipidemia , hypothyroidism, and history of heart attack in 2008. Pt came to the hospital this morning with complaints of RUQ and right flank pain. States the RUQ pain has been intermittent for the past three weeks, recently evaluated here and had US gallbladder (04/14) --> Cholelithiasis. No definite gallbladder wall thickening, pericholecystic fluid, or sonographic Mohan's sign. Pt was told pain was related to gallstones. LFTs were mildly elevated at this time, AST-84 and ALT-65. He returned to ER today because now he is having a pain more in his right flank area that has been intermittent, but increasing in frequency over the past four days. Also reports his urine has become very dark and a pale, breen color to his stools. CT abdomen and pelvis W/O IV contrast (04/21) --> Multiple calcified gallstones and benign-appearing gallbladder. Calcification uncinate process pancreas region common duct. Common duct stone cannot be exclude. No renal calculi. Labs reveal transaminitis: AST-273 ALT-651 Alk phos -394 T bili-9.3. Denies any acid reflux, BRB in stool, nausea, vomiting, unintentional weight loss. Previous daily ETOH, drinking 2-3 beers a night, quit a month ago. Previous smoker, quit in 2008. Denies history of liver issues. Denies ever having EGD or colonoscopy. Does the Cologuard with no signs of colon cancer. Denies family history significant for colon cancer. (Brooklyn Vela) PFSH Past Medical History HTN Hyperlipidemia Heart attack-2008 Hypothyroid (Brooklyn Vela) Coded Allergies: No Known Allergies (Verified Allergy, Unknown, 04/21/17) Social History ETOH- Previously drinking 2-3 beers a night, quit a month ago Quit smoking in 2008 Denies illicit drug use (Brooklyn Vela) Review of Systems Gastrointestinal: COMPLAINS OF: Abdominal pain, Constipation, DENIES: Black stools, Bloody stools, Diarrhea, Nausea, Vomiting, Difficulty Swallowing, Odynophagia, Swelling of Abdomen, Heartburn, Hematemesis (Brooklyn Vela) GI Exam Vitals I&O Vital Signs Date Time Temp Pulse Resp B/P (MAP) Pulse Ox O2 Delivery O2 Flow Rate FiO2 04/21/17 14:15 98.2 68 18 103/66 (78) 97 04/21/17 13:50 68 16 118/62 (80) 98 04/21/17 10:30 98 Room Air 04/21/17 09:47 97.9 72 14 113/59 (77) 98 Imaging Last Impressions Abdomen/Pelvis CT 04/21/17 1034 Signed Impressions: Service Date/Time: Friday, April 21, 2017 11:36 - CONCLUSION: 1. Very large prostate, bladder 2. Multiple calcified gallstones and benign-appearing gallbladder 3. Calcification uncinate process pancreas region common duct. Common duct stone cannot be excluded. 4. There are no renal calculi identified Adam House MD FACR Laboratory Test 04/21/17 10:30 04/21/17 14:00 White Blood Count 5.4 TH/MM3 Red Blood Count 4.64 MIL/MM3 Hemoglobin 14.0 GM/DL Hematocrit 41.1 % Mean Corpuscular Volume 88.6 FL Mean Corpuscular Hemoglobin 30.2 PG Mean Corpuscular Hemoglobin Concent 34.0 % Red Cell Distribution Width 13.9 % Platelet Count 219 TH/MM3 Mean Platelet Volume 8.1 FL Neutrophils (%) (Auto) 65.7 % Lymphocytes (%) (Auto) 17.7 % Monocytes (%) (Auto) 10.8 % Eosinophils (%) (Auto) 3.8 % Basophils (%) (Auto) 2.0 % Neutrophils # (Auto) 3.6 TH/MM3 Lymphocytes # (Auto) 1.0 TH/MM3 Monocytes # (Auto) 0.6 TH/MM3 Eosinophils # (Auto) 0.2 TH/MM3 Basophils # (Auto) 0.1 TH/MM3 CBC Comment DIFF FINAL Differential Comment Blood Urea Nitrogen 14 MG/DL Creatinine 1.03 MG/DL Random Glucose 102 MG/DL Total Protein 6.9 GM/DL Albumin 3.3 GM/DL Calcium Level 9.8 MG/DL Alkaline Phosphatase 394 U/L Aspartate Amino Transf (AST/SGOT) 273 U/L Alanine Aminotransferase (ALT/SGPT) 651 U/L Total Bilirubin 9.3 MG/DL Sodium Level 138 MEQ/L Potassium Level 3.6 MEQ/L Chloride Level 103 MEQ/L Carbon Dioxide Level 26.7 MEQ/L Anion Gap 8 MEQ/L Estimat Glomerular Filtration Rate 70 ML/MIN Lipase 149 U/L Urine Color DARK-BROWN Urine Turbidity HAZY Urine pH 5.5 Urine Specific Atkinson 1.021 Urine Protein TRACE mg/dL Urine Glucose (UA) NEG mg/dL Urine Ketones 10 mg/dL Urine Occult Blood NEG Urine Nitrite NEG Urine Bilirubin MOD Urine Urobilinogen 2.0 MG/DL Urine Leukocyte Esterase NEG Urine RBC 1 /hpf Urine WBC 6 /hpf Urine Squamous Epithelial Cells 2 /hpf Urine Bacteria RARE /hpf Urine Hyaline Casts 6 /lpf Urine Mucus MANY /lpf Microscopic Urinalysis Comment CULT NOT INDICATED Physical Examination HEENT: Normocephalic; atraumatic; (+) Icterus CHEST: Even/unlabored CARDIAC: RRR ABDOMEN: Distended, soft, right sided abdomen TTP more in RUQ, bowel sounds active SKIN: Normal; no rash; (+) jaundice NURSING TEACHER: No focal deficits; alert and oriented times three. (Brooklyn Vela) Assessment and Plan Plan Assessment: - Transaminitis with abnormal CT findings- Pt complaining of RUQ pain for the past month, intermittent. Evaluated here for this complaint recently. US gallbladder (04/14) --> Cholelithiasis. No definite gallbladder wall thickening, pericholecystic fluid, or sonographic Mohan's sign. Pt was told pain was related to gallstones. LFTs were mildly elevated at this time, AST-84 and ALT-65. Returned to ER with complaints of pain now in right flank, pale colored stools, and dark urine. CT abdomen and pelvis W/O IV contrast (04/21) --> Multiple calcified gallstones and benign-appearing gallbladder. Calcification uncinate process pancreas r egion common duct. Common duct stone cannot be exclude. No renal calculi. Labs reveal transaminitis: AST-273 ALT-651 Alk phos-394 T bili-9.3. Denies any acid reflux, BRB in stool , nausea, vomiting, unintentional weight loss. Previous daily ETOH, drinking 2-3 beers a night, quit a month ago. Previous smoker, quit in 2008. Denies history of liver issues. Denies ever having EGD or colonoscopy Plan: MRCP today Monitor LFTs NPO Further recommendations to follow based on results of above Pt has been seen and examined by myself and Dr. 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
[2017-04-21 16:46] VITALS: BP 110/60; PULSE 68; RESP 20; TEMP 97.9; O2SAT 96
--- NOTE | 2017-04-21 17:27 | HHI.HP ---
HPI Service [facility] Primary Care Physician [facility] Admission Diagnosis CHOLELITHIASIS WITH OBSTRUCTIVE HEPATITIS PATTERN Diagnoses: Travel History International Travel<30 Days: No Contact w/Intl Traveler <30 Da: No Traveled to Known Affected Are: No History of Present Illness Patient is a 76-year-old male with past medical history of hyperlipidemia, hypertension, hypothyroidism, BPH, paroxysmal atrial fibrillation, history of PR in 2008 with one stent placed presented to the emergency room upon the request of his [facility] doctor. He was here on April 16 with with symptoms of right upper quadrant pain and was discharged home on pain medication and was told to follow-up at the [facility]. He was instructed to follow-up with his event executive for cardiac clearance for possible cholecystectomy as an outpatient. However since discharge patient has noted that his stools were very breen and his urine got very dark. This happened on Monday however he decided to wait a few more days, drink lots of water and stay hydrated to see if it would go away. However this morning he called the [facility] and told them what was happening and they instructed him to come to the emergency room. He has been experiencing right upper quadrant pain which he rates a 4-5 out of 10 however he has been taking the hydrocodone and it has been helping. Currently his pain is a 1 out of 10 since he got the morphine. He denies any nausea or vomiting, he is denies any fevers or chills. He does note he feels cold all the time. He denies any sore throat, runny nose, any bladder problems. He denies any palpitations or chest pain. He states that a month before his heart attack in 2008 he did have a bout of gallbladder bladder pain. At the time he was given pain medication to treat it. Review of Systems Except as stated in HPI: all other systems reviewed are Neg Past Family Social History Past Medical History HTN Hyperlipidemia Heart attack-2008 with one stent placed Hypothyroid Paroxysmal atrial fibrillation only on aspirin BPH Past Surgical History Cardiac catheterization in 2008 Reported Medications Reported Meds & Active Scripts Active Hydrocodone-Acetamin 5-325 mg (Hydrocodone/Acetaminophen) 5 Mg-325 Mg Tablet 1 Tab PO Q6HR PRN Lisinopril 5 Mg Tab 5 Mg PO DAILY 30 Days Reported Simvastatin 40 Mg Tab 40 Mg PO HS Levothyroxine (Levothyroxine Sodium) 25 Mcg Tab 25 Mcg PO DAILY Enalapril (Enalapril Maleate) 2.5 Mg Tab 2.5 Mg PO DAILY Carvedilol 3.125 Mg Tab 3.125 Mg PO BID Alfuzosin ER 24 HR 10 Mg Tab 10 Mg PO DAILY Tylenol (Acetaminophen) 325 Mg Tab 325 Mg PO Q6H PRN Allergies: Coded Allergies: No Known Allergies (Verified Allergy, Unknown, 04/21/17) Family History Mother had esophageal strictures, otherwise she was healthy Father of a heart attack Social History ETOH- Previously drinking 2-3 beers a night, quit a month ago Quit smoking in 2008 but used to smoke a pack a day for "way too many years" Denies illicit drug use currently. He did smoke marijuana 20 years ago Physical Exam Vital Signs Vital Signs Date Time Temp Pulse Resp B/P (MAP) Pulse Ox O2 Delivery O2 Flow Rate FiO2 04/21/17 16:46 97.9 68 20 110/60 (77) 96 04/21/17 14:15 98.2 68 18 103/66 (78) 97 04/21/17 13:50 68 16 118/62 (80) 98 04/21/17 10:30 98 Room Air 04/21/17 09:47 97.9 72 14 113/59 (77) 98 Physical Exam GENERAL: Thin male, laying in bed. Appears comfortable SKIN: No rashes, ecchymoses or lesions. Cool and dry. HEAD: Atraumatic. Normocephalic. No temporal or scalp tenderness. EYES: Pupils equal round and reactive. Extraocular motions intact. Some scleral icterus noted ENT: Nose without drainage. Airway patent. NECK: Trachea midline. CARDIOVASCULAR: Regular rate and rhythm without murmurs RESPIRATORY: Clear to auscultation. Breath sounds equal bilaterally. No wheezes GASTROINTESTINAL: Abdomen soft, non-tender upon palpation at this time, nondistended. No guarding. MUSCULOSKELETAL: Extremities without edema. No calf tenderness. NEUROLOGICAL: Awake and alert. Motor and sensory grossly within normal limits. Five out of 5 muscle strength in all muscle groups. Normal speech. Laboratory Laboratory Tests Test 04/21/17 10:30 04/21/17 14:00 White Blood Count 5.4 Red Blood Count 4.64 Hemoglobin 14.0 Hematocrit 41.1 Mean Corpuscular Volume 88.6 Mean Corpuscular Hemoglobin 30.2 Mean Corpuscular Hemoglobin Concent 34.0 Red Cell Distribution Width 13.9 Platelet Count 219 Mean Platelet Volume 8.1 Neutrophils (%) (Auto) 65.7 Lymphocytes (%) (Auto) 17.7 Monocytes (%) (Auto) 10.8 Eosinophils (%) (Auto) 3.8 Basophils (%) (Auto) 2.0 Neutrophils # (Auto) 3.6 Lymphocytes # (Auto) 1.0 Monocytes # (Auto) 0.6 Eosinophils # (Auto) 0.2 Basophils # (Auto) 0.1 CBC Comment DIFF FINAL Differential Comment Blood Urea Nitrogen 14 Creatinine 1.03 Random Glucose 102 Total Protein 6.9 Albumin 3.3 Calcium Level 9.8 Alkaline Phosphatase 394 Aspartate Amino Transf (AST/SGOT) 273 Alanine Aminotransferase (ALT/SGPT) 651 Total Bilirubin 9.3 Sodium Level 138 Potassium Level 3.6 Chloride Level 103 Carbon Dioxide Level 26.7 Anion Gap 8 Estimat Glomerular Filtration Rate 70 Lipase 149 Urine Color DARK-BROWN Urine Turbidity HAZY Urine pH 5.5 Urine Specific Enigma 1.021 Urine Protein TRACE Urine Glucose (UA) NEG Urine Ketones 10 Urine Occult Blood NEG Urine Nitrite NEG Urine Bilirubin MOD Urine Urobilinogen 2.0 Urine Leukocyte Esterase NEG Urine RBC 1 Urine WBC 6 Urine Squamous Epithelial Cells 2 Urine Bacteria RARE Urine Hyaline Casts 6 Urine Mucus MANY Microscopic Urinalysis Comment CULT NOT INDICATED Result Diagram: 04/21/17 1030 04/21/17 1030 Imaging Last Impressions Abdomen/Pelvis CT 04/21/17 1034 Signed Impressions: Service Date/Time: Friday, April 21, 2017 11:36 - CONCLUSION: 1. Very large prostate, bladder 2. Multiple calcified gallstones and benign-appearing gallbladder 3. Calcification uncinate process pancreas region common duct. Common duct stone cannot be excluded. 4. There are no renal calculi identified Adam House MD FACR Caprini VTE Risk Assessment Caprini VTE Risk Assessment: Mod/High Risk (score >= 2) Caprini Risk Assessment Model Point Value = 1 Point Value = 2 Point Value = 3 Point Value = 5 Age 41-60 Minor surgery BMI > 25 kg/m2 Swollen legs Varicose veins or History of unexplained or recurrent spontaneous Oral contraceptives or hormone replacement Sepsis (< 1 month) Serious lung disease, including pneumonia (< 1 month) Abnormal pulmonary function Acute myocardial infarction Congestive heart failure (< 1 month) History of inflammatory bowel disease Medical patient at bed rest Age 61-74 Arthroscopic surgery Major open surgery (> 45 min) Laparoscopic surgery (> 45 min) Malignancy Confined to bed (> 72 hours) Immobilizing plaster cast Central venous access Age >= 75 History of VTE Family history of VTE Factor V Leiden Prothrombin [id number] Lupus anticoagulant Anticardiolipin antibodies Elevated serum homocysteine Heparin-induced thrombocytopenia Other congenital or acquired thrombophilia Stroke (< 1 month) Elective arthroplasty Hip, pelvis, or leg fracture Acute spinal cord injury (< 1 month) Prophylaxis Regimen Total Risk Factor Score Risk Level Prophylaxis Regimen 0-1 Low Early ambulation 2 Moderate Order ONE of the following: *Sequential Compression Device (SCD) *Heparin 5000 units SQ BID 3-4 Higher Order ONE of the following medications: *Heparin 5000 units SQ TID *Enoxaparin/Lovenox 40 mg SQ daily (WT < 150 kg, CrCl > 30 mL/min) *Enoxaparin/Lovenox 30 mg SQ daily (WT < 150 kg, CrCl > 10-29 mL/min) *Enoxaparin/Lovenox 30 mg SQ BID (WT < 150 kg, CrCl > 30 mL/min) AND/OR *Sequential Compression Device (SCD) 5 or more Highest Order ONE of the following medications: *Heparin 5000 units SQ TID (Preferred with Epidurals) *Enoxaparin/Lovenox 40 mg SQ daily (WT < 150 kg, CrCl > 30 mL/min) *Enoxaparin/Lovenox 30 mg SQ daily (WT < 150 kg, CrCl > 10-29 mL/min) *Enoxaparin/Lovenox 30 mg SQ BID (WT < 150 kg, CrCl > 30 mL/min) AND *Sequential Compression Device (SCD) Assessment and Plan Assessment and Plan Cholelithiasis/right upper quadrant pain/discoloration of urine and stools: Patient found to have a T bili of 9.3. AST and ALT: 273/651. GI consult was placed and they evaluated the patient. The patient is scheduled for MRCP later today. Patient tells me he has an appointment on Monday with his event executive for cardiac clearance at the [facility]. At this time will await the results of the MRCP and GI recommendations. Consider general surgery consult if needed. Continue pain management. Monitor LFTs and T bili. All other chronic conditions: Hypertension, hyperlipidemia, hypothyroidism, BPH , paroxysmal atrial fibrillation: Resumed home medications. Patient states that he is on aspirin daily for his atrial fibrillation. He denies being on any anticoagulation. Resume postprocedure. DVT prophylaxis: SCD. Hold chemical anticoagulation due to procedures Code Status Full code Discussed Condition With Patient and ER physician Mary Prado MD Apr 21, 2017 17:26
--- NOTE | 2017-04-21 19:51 | RADRPT ---
EXAM DATE/TIME: 04/21/2017 19:06 [facility] COMPARISON: US ABDOMEN - GALLBLADDER, April 14, 2017, 18:02. CT ABDOMEN & PELVIS W/O CONTRAST, April 21, 2 018, 11:36. INDICATIONS : Cholelithiasis. MEDICAL HISTORY : None. SURGICAL HISTORY : None. ENCOUNTER: Subsequent ACUITY: 3 day PAIN SCORE: 5/10 LOCATION: Abdomen. TECHNIQUE: Multiplanar, multisequence magnetic resonance imaging of the abdomen was performed. High-resolution 3D dataset was utilized to reconstruct maximum-intensity projection (MIP) images. FINDINGS: INTRAHEPATIC BILE DUCTS: There is some mild dilatation of the biliary ducts. EXTRAHEPATIC BILE DUCTS: The common bile duct measures 1.1 cm. On the axial images there appears to be a small stone in the di stal common bile duct. GALLBLADDER: Multiple stones are in the gallbladder. Gallbladder wall is not thickened. There is no fluid around t he gallbladder. LIVER: Normal size and signal intensity. No concerning liver lesion is identified on this non-contrast exam. There are 2 prominent calcifications in the right lobe of the liver measuring 1.3 and 1.3 cm. PANCREAS: The main pancreatic duct is normal in size. There is no significant anatomical variant. Signal inte nsity is within normal limits. No mass is visualized on this non-contrast exam. OTHER: The remaining visualized structures demonstrate no acute abnormality on this non-contrast exam. There is a 1.2 cm left renal cyst along the midpole. There is a 1 cm left renal cyst on the lower pole. CONCLUSION: 1. Multiple gallstones in the gallbladder. 2. There is some dilatation of the biliary tree as well as the common bile duct measuring 1.1 cm in d iameter. There appears to be a small stone in the distal common bile duct near the ampulla. 3. Nonspecific calcifications in the right lobe of the liver. 4. Benign-appearing left renal cysts. Steve Amato MD on April 21, 2017 at 19:41 Board Certified Radiologist. This report was verified electronically.
[2017-04-21] MEDS: SODIUM CHLORIDE 0.9% FLUSH 10 ML FLUSH IV FLUSH SCH (21:00)
[2017-04-21 21:01] VITALS: BP 122/59; PULSE 57; RESP 18; TEMP 98; O2SAT 96
[2017-04-21] MEDS: CARVEDILOL 3.125 MG TAB PO SCH (21:56)
[2017-04-21] MEDS: PRAVASTATIN SOD 80 MG TAB PO SCH (21:56)
[2017-04-21] MEDS: DOCUSATE SODIUM 50 MG/SENNA 8.6 MG TAB PO SCH (21:56)
[2017-04-22] VITALS (8 sets, daily range): BP systolic 104–176; BP diastolic 59–86; PULSE 65–76; RESP 16–18; TEMP 97–98; O2SAT 95–97
[2017-04-22] MEDS: LEVOTHYROXINE SODIUM 25 MCG TAB PO SCH (06:00)
[2017-04-22] MEDS: DOCUSATE SODIUM 50 MG/SENNA 8.6 MG TAB PO SCH ×2 (08:10→20:59)
[2017-04-22] MEDS: SODIUM CHLORIDE 0.9% FLUSH 10 ML FLUSH IV FLUSH SCH ×2 (08:11→21:03)
[2017-04-22] MEDS: CARVEDILOL 3.125 MG TAB PO SCH ×2 (08:11→20:59)
[2017-04-22] MEDS: TAMSULOSIN HCL 0.4 MG CAP PO SCH (08:11)
[2017-04-22] MEDS: SODIUM CHLOR 0.9% 1000 ML INJ 1,000 ML IV SCH ×3 (08:12→21:04)
[2017-04-22] MEDS: ENALAPRIL MALEATE 2.5 MG TAB PO SCH (08:12)
[2017-04-22 08:19] LABS: AUTOMATED NEUTROPHIL # 3.9 TH/MM3 (1.8-7.7); BASOPHIL # 0.1 TH/MM3 (0-0.2); BASOPHIL % 1.3 % (0.0-2.0); EOSINOPHIL # 0.3 TH/MM3 (0-0.4); EOSINOPHIL % 5.1 % (0.0-4.0); HEMATOCRIT 36.8 % (39.0-51.0); HEMOGLOBIN 12.7 GM/DL (13.0-17.0); LYMPH % 15.9 % (9.0-44.0); LYMPHOCYTE # 0.9 TH/MM3 (1.0-4.8); MEAN CELL VOLUME 89.4 FL (80.0-100.0); MEAN CORPUSCULAR HEMOGLOBIN 30.8 PG (27.0-34.0); MEAN CORPUSCULAR HGB CONC 34.5 % (32.0-36.0); MEAN PLATELET VOLUME 8.1 FL (7.0-11.0); MONO % 9.7 % (0.0-8.0); MONOCYTE # 0.6 TH/MM3 (0-0.9); PLATELET COUNT 196 TH/MM3 (150-450); RED BLOOD COUNT 4.11 MIL/MM3 (4.50-5.90); RED CELL DISTRIBUTION WIDTH 14.1 % (11.6-17.2); WHITE BLOOD COUNT 5.7 TH/MM3 (4.0-11.0)
[2017-04-22 08:47] LABS: ALBUMIN 2.7 GM/DL (3.4-5.0); ALKALINE PHOSPHATASE 357 U/L (45-117); ALT (GPT) 518 U/L (12-78); AST (GOT) 197 U/L (15-37); BLOOD UREA NITROGEN 14 MG/DL (7-18); CALCIUM 8.6 MG/DL (8.5-10.1); CHLORIDE 107 MEQ/L (98-107); CREATININE 0.78 MG/DL (0.60-1.30); GLOMERULAR FILTRATION RATE 97 ML/MIN (>89); GLUCOSE,RANDOM 56 MG/DL (74-106); SODIUM (NA) 140 MEQ/L (136-145); TOTAL PROTEIN 5.7 GM/DL (6.4-8.2)
--- NOTE | 2017-04-22 09:02 | HHI.PR ---
Subjective Remarks Follow up for choledocholithiasis. The patient reports continued intermittent RUQ abdominal pain, currently improved. Denies any nausea or vomiting. Denies fevers/chills. Last BM on 04/20. Denies any other medical complaints at this time. Objective Vitals Vital Signs Date Time Temp Pulse Resp B/P (MAP) Pulse Ox O2 Delivery O2 Flow Rate FiO2 04/22/17 07:40 97.8 73 18 126/67 (86) 96 04/22/17 05:06 97.2 70 18 122/69 (86) 95 04/22/17 00:00 97.0 65 18 104/59 (74) 97 04/21/17 21:01 98.0 57 18 122/59 (80) 96 04/21/17 16:46 97.9 68 20 110/60 (77) 96 04/21/17 14:15 98.2 68 18 103/66 (78) 97 04/21/17 13:50 68 16 118/62 (80) 98 04/21/17 10:30 98 Room Air 04/21/17 09:47 97.9 72 14 113/59 (77) 98 I/O 04/21/17 04/21/17 04/21/17 04/22/17 04/22/17 04/22/17 07:00 15:00 23:00 07:00 15:00 23:00 Intake Total 474 ml Output Total 600 ml Balance -126 ml Intake IV Total 474 ml Output Urine Total 600 ml # Voids 2 Result Diagram: 04/22/17 0630 04/22/17 0630 Imaging Last Impressions Abdomen/Pelvis CT 04/21/17 1034 Signed Impressions: Service Date/Time: Friday, April 21, 2017 11:36 - CONCLUSION: 1. Very large prostate, bladder 2. Multiple calcified gallstones and benign-appearing gallbladder 3. Calcification uncinate process pancreas region common duct. Common duct stone cannot be excluded. 4. There are no renal calculi identified Adam House MD FACR Cholangiopancreatography MRI 04/21/17 0000 Signed Impressions: Service Date/Time: Friday, April 21, 2017 19:06 - CONCLUSION: 1. Multiple gallstones in the gallbladder. 2. There is some dilatation of the biliary tree as well as the common bile duct measuring 1.1 cm in diameter. There appears to be a small stone in the distal common bile duct near the ampulla. 3. Nonspecific calcifications in the right lobe of the liver. 4. Benign-appearing left renal cysts. Steve Amato MD Objective Remarks GENERAL: Well-nourished, well-developed pleasant male patient in [facility]. SKIN: Warm and dry. No rash. HEENT: Normocephalic. Atraumatic.Pupils equal and round. Mucous membranes pink and moist. CARDIOVASCULAR: Regular rate and rhythm. S1, S2 noted. No murmur appreciated. RESPIRATORY: No accessory muscle use. Clear to auscultation. Breath sounds equal bilaterally. GASTROINTESTINAL: Abdomen soft, non-tender, nondistended. Normoactive bowel sounds x4. MUSCULOSKELETAL: No obvious deformities. Extremities without clubbing, cyanosis , or edema. NEUROLOGICAL: Awake and alert. No obvious cranial nerve deficits. Motor grossly within normal limits. Normal speech. PSYCHIATRIC: Appropriate mood and affect; insight and judgment normal. Medications and IVs Current Medications Medications (Trade) Dose Ordered Sig/Paolo Route Start Time Stop Time Status Last Admin Sodium Chloride 1,000 ml @ 100 mls/hr Q10H IV 04/21/17 13:12 04/22/17 09:12 (NS Flush) 2 ml UNSCH PRN IV FLUSH 04/21/17 13:15 (NS Flush) 2 ml BID IV FLUSH 04/21/17 21:00 04/22/17 08:11 (Zofran Inj) 4 mg Q6H PRN IVP 04/21/17 13:15 (Narcan Inj) 0.4 mg UNSCH PRN IV PUSH 04/21/17 13:15 (Kacie-Colace) 1 tab BID PO 04/21/17 21:00 04/21/17 21:56 (Milk Of Magnesia Liq) 30 ml Q12H PRN PO 04/21/17 13:15 (Senokot) 17.2 mg Q12H PRN PO 04/21/17 13:15 (Dulcolax Supp) 10 mg DAILY PRN RECTAL 04/21/17 13:15 (Lactulose Liq) 30 ml DAILY PRN PO 04/21/17 13:15 (Coreg) 3.125 mg BID PO 04/21/17 21:00 04/22/17 08:11 (Vasotec) 2.5 mg DAILY PO 04/22/17 09:00 04/22/17 08:12 (Synthroid) 25 mcg DAILY@0600 PO 04/22/17 06:00 04/22/17 06:00 (Flomax) 0.4 mg DAILY PO 04/22/17 09:00 04/22/17 08:11 (Pravachol) 80 mg HS PO 04/21/17 21:00 04/21/17 21:56 A/P Problem List: (1) Choledocholithiasis ICD Code: K80.50 - Calculus of bile duct without cholangitis or cholecystitis without obstruction Assessment and Plan 76-year-old male with past medical history of HTN, HLD, hypothyroidism, BPH, paroxysmal atrial fibrillation, history of [place] in 2008 with stent x1, presented with RUQ pain, sent by [place] doctor Choledocholithiasis with Hyperbilirubinemia/Elevated LFTs: CT abd/pelvis reviewed, shows multiple calcified gallstone and benign-appearing gallbladder; calcification uncinate process pancreas region common duct; common duct stone cannot be excluded. Tbili 9.3, AST 273, ALT 653, Alk Phos 394 -Consulted GI -MRCP showed multiple gallstone in the GB; pascual dilatation of the biliary tree as well as the CBD measuring 1.1cm, appears to be a small stone in the distal CBD -Keep NPO for now -GI planning for ERCP today -General surgery consulted -Supportive treatment with IVF, pain control with IV morphine prn -Continue to monitor LFTs BPH: chronic -continue patient's alfuzosin HTN/CAD: chronic -continue patient's coreg, enalapril, statin -monitor BP, adjust antihypertensives as needed Hypothyroidism: chronic -continue patient's synthroid DVT Prophylaxis: teds/SCDs, avoid chemoprophylaxis with upcoming procedure Brenda Norris PA-C Apr 22, 2017 9:02 am
[2017-04-22] MEDS ORDERED: LIDOCAINE HCL 1% PF 5 ML SYRINGE OTHER ONE (12:00)
[2017-04-22] MEDS ORDERED: METOPROLOL TARTRATE 25 MG TAB PO PRN (12:45)
[2017-04-22] MEDS ORDERED: LACTATED RINGER'S 1000 ML IV PRN (12:45)
[2017-04-22] MEDS ORDERED: POVIDONE IODINE 5% (ANTISEPSIS KIT) 4 APPLICATIONS EACH NARE PRN (12:45)
[2017-04-22] MEDS ORDERED: CHLORHEXIDINE GLUCONATE 2 % 1 PACK (2 CLOTHS) TOPICAL PRN (12:45)
[2017-04-22] MEDS ORDERED: SODIUM CHLORID 0.9% 500 ML IV PRN (12:45)
[2017-04-22] MEDS ORDERED: PROPOFOL 500 MG/50 ML INJ 50 ML ONE (15:51)
--- NOTE | 2017-04-22 17:29 | PD.PROCEDR ---
GI Procedure PROCEDURE PERFORMED ERCP, sphincterotomy, balloon sweep of the duct with stone retrieval, biopsy of the stomach INDICATION FOR PROCEDURE Elevated liver function tests, abnormal CT scan PROCEDURE: The procedure, risks and benefits were discussed with Mr. Maya and informed consent was obtained. Anesthesia sedated him with Diprivan. He was placed in the left lateral decubitus position. ERCP: Patient was placed in a prone position. The Pentax videoscope was introduced through the oropharynx and advanced to the second portion of the duodenum where the ampula was identified. , Cannulation was achieved without any difficulty cholangiogram showed multiple filling defect, sphincterotomy was performed, sweeping the duct with 11.5 and 15 mm balloon retrieved 3 stones and significant amount of sludge, the duct was irrigated with normal saline, and of case included cholangiogram was negative for any filling defect [Stomach, biopsy was done from the antrum and lesser curve to rule out H. pylori and the scope brought back without immediate complication FINDINGS: S try to us Multiple small duodenal ulcer common bile duct stone removed as above ESTIMATED BLOOD LOSS: None SPECIMENS REMOVED: Antrum COMPLICATIONS: None IMPRESSION: Gastritis Duodenitis Multiple common bile duct stones removed with the balloon Duodenal ulcer PLAN: Nothing by mouth until the morning Ever function tests in the a.m. Await biopsy results Protonix 40 mg daily Teresita Payton MD Apr 22, 2017 17:29
--- NOTE | 2017-04-22 17:31 | HHI.GIFU ---
Subjective Remarks Patient laying in bed comfortably, no significant abdominal pain at this time Objective Vitals I&O Vital Signs Date Time Temp Pulse Resp B/P (MAP) Pulse Ox O2 Delivery O2 Flow Rate FiO2 04/22/17 11:12 98.0 65 16 115/61 (79) 95 04/22/17 07:40 97.8 73 18 126/67 (86) 96 04/22/17 05:06 97.2 70 18 122/69 (86) 95 04/22/17 00:00 97.0 65 18 104/59 (74) 97 04/21/17 21:01 98.0 57 18 122/59 (80) 96 I/O 04/21/17 04/21/17 04/21/17 04/22/17 04/22/17 04/22/17 06:59 14:59 22:59 06:59 14:59 22:59 Intake Total 474 ml Output Total 600 ml Balance -126 ml Intake IV Total 474 ml Output Urine Total 600 ml # Voids 2 1 Laboratory Laboratory Tests Test 04/22/17 06:30 White Blood Count 5.7 Red Blood Count 4.11 Hemoglobin 12.7 Hematocrit 36.8 Mean Corpuscular Volume 89.4 Mean Corpuscular Hemoglobin 30.8 Mean Corpuscular Hemoglobin Concent 34.5 Red Cell Distribution Width 14.1 Platelet Count 196 Mean Platelet Volume 8.1 Neutrophils (%) (Auto) 68.0 Lymphocytes (%) (Auto) 15.9 Monocytes (%) (Auto) 9.7 Eosinophils (%) (Auto) 5.1 Basophils (%) (Auto) 1.3 Neutrophils # (Auto) 3.9 Lymphocytes # (Auto) 0.9 Monocytes # (Auto) 0.6 Eosinophils # (Auto) 0.3 Basophils # (Auto) 0.1 CBC Comment DIFF FINAL Differential Comment Blood Urea Nitrogen 14 Creatinine 0.78 Random Glucose 56 Total Protein 5.7 Albumin 2.7 Calcium Level 8.6 Alkaline Phosphatase 357 Aspartate Amino Transf (AST/SGOT) 197 Alanine Aminotransferase (ALT/SGPT) 518 Total Bilirubin 8.0 Sodium Level 140 Potassium Level 3.7 Chloride Level 107 Carbon Dioxide Level 23.0 Anion Gap 10 Estimat Glomerular Filtration Rate 97 Physical Exam HEENT: Pupils round and reactive to light; normocephalic; atraumatic; positive jaundice. Throat is clear. NECK: Neck is supple, no JVD, no lymphadenopathy. CHEST: Chest is clear to auscultation and percussion. CARDIAC: Regular rate and rhythm with no murmur gallop or rubs. ABDOMEN: Soft, nondistended, minimal tenderness; no hepatosplenomegaly; bowel sounds are present in all four quadrants. EXTREMITIES: No clubbing, cyanosis, or edema. SKIN: Normal; no rash;jaundice. 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 Assessment and Plan Plan Assessment: - Transaminitis with abnormal CT findings- Pt complaining of RUQ pain for the past month, intermittent. Evaluated here for this complaint recently. US gallbladder (04/14) --> Cholelithiasis. No definite gallbladder wall thickening, pericholecystic fluid, or sonographic Mohan's sign. Pt was told pain was related to gallstones. LFTs were mildly elevated at this time, AST-84 and ALT-65. Returned to ER with complaints of pain now in right flank, pale colored stools, and dark urine. CT abdomen and pelvis W/O IV contrast (04/21) --> Multiple calcified gallstones and benign-appearing gallbladder. Calcification uncinate process pancreas r egion common duct. Common duct stone cannot be exclude. No renal calculi. Labs reveal transaminitis: AST-273 ALT-651 Alk phos-394 T bili-9.3. Denies any acid reflux, BRB in stool , nausea, vomiting, unintentional weight loss. Previous daily ETOH, drinking 2-3 beers a night, quit a month ago. Previous smoker, quit in 2008. Denies history of liver issues. Denies ever having EGD or colonoscopy 04/22/2017 elevated liver function tests, abnormal CT scan, status post ERCP IMPRESSION: Gastritis Duodenitis Multiple common bile duct stones removed with the balloon Duodenal ulcer PLAN: Nothing by mouth until the morning Ever function tests in the a.m. Await biopsy results Protonix 40 mg daily Teresita Payton MD Apr 22, 2017 17:31
--- NOTE | 2017-04-22 17:50 | RADRPT ---
EXAM DATE/TIME: 04/22/2017 16:57 [place] COMPARISON: No previous studies available for comparison. INDICATIONS : Common bile duct obstruction. Gallstones. FLUORO TIME: 2.33 minutes IMAGE COUNT: 4 CONTRAST: Instilled by Ordering Physician MEDICAL HISTORY : Cholelithiasis. SURGICAL HISTORY : None. ENCOUNTER: Initial ACUITY: 1 day PAIN SCORE: Non-responsive. LOCATION: abdomen. FINDINGS: An ERCP was performed by the ordering physician. The images demonstrate a thin wire in the common bile duct and contrast injection into the duct. CONCLUSION: ERCP as above. Kwame Khan MD on April 22, 2017 at 17:46 Board Certified Radiologist. This report was verified electronically.
[2017-04-22] MEDS: MORPHINE SULFATE 2 MG/ML INJ IV PUSH PRN ×2 (18:00→21:01)
[2017-04-22] MEDS ORDERED: DO NOT ADM ANY ANTICOAGULANT DRUGS PRN ×2 (18:15)
--- NOTE | 2017-04-22 19:52 | MB ---
cc: OFELIAANGEL LUIS DATE OF CONSULTATION: 04/22/2017. REASON FOR CONSULTATION: Bowel obstruction. Choledocholithiasis. PHYSICIAN REQUESTING THE CONSULTATION: Mary Prado MD. HISTORY OF PRESENT ILLNESS: The patient is a 76-year-old male who was seen at the [facility] for jaundice and right upper quadrant pain. The patient underwent evaluation and was found to have elevated total bilirubin of 9.3 as well as transaminases. The patient was jaundiced. He underwent a workup including imaging. He had an MRCP which showed gallstones and dilated biliary tree, a stone in the common bile duct near the ampulla. The patient was admitted. GI was consulted for possible ERCP. General surgery was also consulted. The patient is status post ERCP today. He states his pain is mostly resolved. He is hungry. No fevers, chills or night sweats. REVIEW OF SYSTEMS: A twelve-point review of systems was gone over with the patient and is negative except for the pertinent positives mentioned above in the history of present illness. PAST MEDICAL HISTORY: 1. Hypertension. 2. Hyperlipidemia. 3. Coronary artery disease status post myocardial infarction in 2009 status post stent placement. 4. Hypothyroidism. 5. Atrial fibrillation. 6. Benign prostate hypertrophy. PAST SURGICAL HISTORY: No previous abdominal surgeries. ALLERGIES: NO KNOWN DRUG ALLERGIES. MEDICATIONS: 1. Lisinopril. 2. Simvastatin. 3. Levothyroxine. 4. Enalapril. 5. Coreg. FAMILY HISTORY: Heart disease. SOCIAL HISTORY: He does use alcohol occasionally, none recently. He used to smoke and quit in 2008. Denies illicit drug use. PHYSICAL EXAMINATION: VITAL SIGNS: Temperature is 97.8 degrees, heart rate 73, blood pressure 126/57, 02 saturation is 96%. GENERAL: The patient is a well-developed, well-nourished male in no acute distress. SKIN: Intact and icteric. HEAD, EYES, EARS, NOSE, THROAT: Head is normocephalic and atraumatic. Pupils equal, round and reactive to light. The sclerae are nonicteric. The oral cavity is clear. The airway is patent. NECK: The neck is supple. No jugular venous distention. LUNGS: Breath sounds present bilaterally. HEART: Regular rate and rhythm. No murmurs. ABDOMEN: Abdomen soft. Negative Mohan's sign. Normal bowel sounds. No hernias or ascites or surgical scars. No organomegaly. BACK: No costovertebral angle tenderness. EXTREMITIES: No cyanosis, clubbing or edema. NEUROLOGIC: Cranial nerves II through XII are grossly intact. Nonfocal peripheral exam. Alert and oriented times three. Mood, insight and judgment are intact. ASSESSMENT AND PLAN: The patient is a 76-year-old male with history of coronary artery disease with choledocholithiasis. The patient has undergone successful ERCP with decompression of the biliary tree. Would recommend proceeding to the operating room with laparoscopic cholecystectomy. Due to his history of coronary artery disease and due to the less urgent nature of the surgery, it would be prudent to have him evaluated by cardiology prior to proceeding to the operating room and would anticipate being cleared for surgery early this week and proceeding to a laparoscopic cholecystectomy. I discussed this plan as well as the risks, benefits, and alternatives of laparoscopic cholecystectomy with the patient in detail and he agrees with this plan and to the procedure. Thank you very much for this consultation and we will follow along with the patient. MD BARBARA James/CASANDRA /6:44 PM /7:33 PM FOX
[2017-04-22] MEDS: PRAVASTATIN SOD 80 MG TAB PO SCH (20:59)
[2017-04-22] MEDS ORDERED: ACETAMINOPHEN/HYDROcodone 325 MG/10 MG TAB PO ONE (22:15)
[2017-04-22] MEDS ORDERED: PROCHLORPERAZINE INJ 10 MG/2 ML VIAL IV PUSH ONE (22:15)
[2017-04-23] MEDS: MORPHINE SULFATE 2 MG/ML INJ IV PUSH PRN ×6 (00:34→20:20)
[2017-04-23] MEDS: SODIUM CHLOR 0.9% 1000 ML INJ 1,000 ML IV SCH ×2 (04:31→15:12)
[2017-04-23 04:42] VITALS: BP 135/73; PULSE 74; RESP 18; TEMP 98.2; O2SAT 96
[2017-04-23] MEDS: LEVOTHYROXINE SODIUM 25 MCG TAB PO SCH (06:00)
[2017-04-23 07:32] LABS: ALBUMIN 2.9 GM/DL (3.4-5.0); DIRECT BILIRUBIN ADULT 4.9 MG/DL (0.0-0.2)
[2017-04-23 07:34] LABS: INDIRECT BILIRUBIN 1.9 MG/DL (0.0-0.8); TOTAL BILIRUBIN ADULT 6.8 MG/DL (0.2-1.0)
[2017-04-23 08:05] VITALS: BP 152/78; PULSE 74; RESP 18; TEMP 97.8; O2SAT 95
[2017-04-23] MEDS: DOCUSATE SODIUM 50 MG/SENNA 8.6 MG TAB PO SCH ×2 (08:42→20:15)
[2017-04-23] MEDS: CARVEDILOL 3.125 MG TAB PO SCH ×2 (08:42→20:15)
[2017-04-23] MEDS: SODIUM CHLORIDE 0.9% FLUSH 10 ML FLUSH IV FLUSH SCH ×2 (08:42→20:16)
[2017-04-23] MEDS: ENALAPRIL MALEATE 2.5 MG TAB PO SCH (08:42)
[2017-04-23] MEDS: TAMSULOSIN HCL 0.4 MG CAP PO SCH (08:42)
--- NOTE | 2017-04-23 09:55 | HHI.PR ---
Subjective Remarks Follow up for choledocholithiasis. The patient is s/p EGD with ERCP yesterday. He reports feeling better again today however still with some RUQ abdominal pain with radiation into the right lateral thorax. Denies fevers/chills or nausea/vomiting. Still no BM since 04/20. He has no other medical complaints at this time. In regards to cardiac clearance, patient had 1 stent placed in 2008. He now follows with [place] cardiology. He denies any recent stress test or echocardiogram. He is fairly active and was walking 3+miles regularly just prior to being admitted to the hospital. He denies any exertional chest pain or dyspnea. Objective Vitals Vital Signs Date Time Temp Pulse Resp B/P (MAP) Pulse Ox O2 Delivery O2 Flow Rate FiO2 04/23/17 09:21 18 04/23/17 08:05 97.8 74 18 152/78 (102) 95 04/23/17 04:42 98.2 74 18 135/73 (93) 96 04/22/17 23:39 97.9 71 18 170/86 (114) 95 04/22/17 21:55 69 151/72 (98) 04/22/17 20:24 75 174/82 (112) 04/22/17 19:54 97.9 76 17 176/86 (116) 96 04/22/17 17:40 98.2 68 14 128/68 (88) 97 Nasal Cannula 2 04/22/17 17:30 66 14 123/69 (87) 96 Nasal Cannula 2 04/22/17 17:18 98.2 68 14 125/61 (82) 93 Nasal Cannula 2 04/22/17 11:12 98.0 65 16 115/61 (79) 95 I/O 04/22/17 04/22/17 04/22/17 04/23/17 04/23/17 04/23/17 07:00 15:00 23:00 07:00 15:00 23:00 # Voids 1 2 Result Diagram: 04/22/17 0630 04/22/17 0630 Imaging Last Impressions GI Procedure 04/22/17 0000 Signed Impressions: Service Date/Time: Saturday, April 22, 2017 16:57 - CONCLUSION: ERCP as above. Kwame Khan MD Abdomen/Pelvis CT 04/21/17 1034 Signed Impressions: Service Date/Time: Friday, April 21, 2017 11:36 - CONCLUSION: 1. Very large prostate, bladder 2. Multiple calcified gallstones and benign-appearing gallbladder 3. Calcification uncinate process pancreas region common duct. Common duct stone cannot be excluded. 4. There are no renal calculi identified Adam House MD FACR Cholangiopancreatography MRI 04/21/17 0000 Signed Impressions: Service Date/Time: Friday, April 21, 2017 19:06 - CONCLUSION: 1. Multiple gallstones in the gallbladder. 2. There is some dilatation of the biliary tree as well as the common bile duct measuring 1.1 cm in diameter. There appears to be a small stone in the distal common bile duct near the ampulla. 3. Nonspecific calcifications in the right lobe of the liver. 4. Benign-appearing left renal cysts. Steve Amato MD Objective Remarks GENERAL: Well-nourished, well-developed pleasant male patient in NAD. Hoarse/ soft voice. SKIN: Warm and dry. No rash. HEENT: Normocephalic. Atraumatic.Pupils equal and round. Mucous membranes pink and moist. CARDIOVASCULAR: Regular rate and rhythm. S1, S2 noted. No murmur appreciated. RESPIRATORY: No accessory muscle use. Clear to auscultation. Breath sounds equal bilaterally. GASTROINTESTINAL: Abdomen soft, nondistended, mild RUQ TTP today. Normoactive bowel sounds x4. MUSCULOSKELETAL: No obvious deformities. Extremities without clubbing, cyanosis , or edema. NEUROLOGICAL: Awake and alert. No obvious cranial nerve deficits. Motor grossly within normal limits. Normal speech. PSYCHIATRIC: Appropriate mood and affect; insight and judgment normal. Procedures 04/22 - EGD with ERCP showed Gastritis, duodenitis, duodenal ulcer, multiple common bile duct stones removed with balloon Medications and IVs Current Medications Medications (Trade) Dose Ordered Sig/Paolo Route Start Time Stop Time Status Last Admin Sodium Chloride 1,000 ml @ 100 mls/hr Q10H IV 04/21/17 13:12 04/23/17 04:31 (NS Flush) 2 ml UNSCH PRN IV FLUSH 04/21/17 13:15 (NS Flush) 2 ml BID IV FLUSH 04/21/17 21:00 04/23/17 08:42 (Zofran Inj) 4 mg Q6H PRN IVP 04/21/17 13:15 (Narcan Inj) 0.4 mg UNSCH PRN IV PUSH 04/21/17 13:15 (Kacie-Colace) 1 tab BID PO 04/21/17 21:00 04/23/17 08:42 (Milk Of Magnesia Liq) 30 ml Q12H PRN PO 04/21/17 13:15 (Senokot) 17.2 mg Q12H PRN PO 04/21/17 13:15 (Dulcolax Supp) 10 mg DAILY PRN RECTAL 04/21/17 13:15 (Lactulose Liq) 30 ml DAILY PRN PO 04/21/17 13:15 (Coreg) 3.125 mg BID PO 04/21/17 21:00 04/23/17 08:42 (Vasotec) 2.5 mg DAILY PO 04/22/17 09:00 04/23/17 08:42 (Synthroid) 25 mcg DAILY@0600 PO 04/22/17 06:00 04/23/17 06:00 (Flomax) 0.4 mg DAILY PO 04/22/17 09:00 04/23/17 08:42 (Pravachol) 80 mg HS PO 04/21/17 21:00 04/22/17 20:59 (Morphine Inj) 2 mg Q3H PRN IV PUSH 04/22/17 11:00 04/23/17 12:17 Miscellaneous Information ALL NURSING DEPARTME... UNSCH PRN .XX 04/22/17 18:15 04/23/17 18:14 Miscellaneous Information ALL NURSING DEPARTME... UNSCH PRN .XX 04/22/17 18:15 04/23/17 18:14 (Protonix) 40 mg Q12HR PO 04/23/17 21:00 A/P Problem List: (1) Choledocholithiasis ICD Code: K80.50 - Calculus of bile duct without cholangitis or cholecystitis without obstruction Assessment and Plan 76-year-old male with past medical history of HTN, HLD, hypothyroidism, BPH, paroxysmal atrial fibrillation, history of VA in 2008 with stent x1, presented with RUQ pain, sent by [place] doctor Choledocholithiasis with Hyperbilirubinemia/Elevated LFTs: Tbili 9.3, AST 273, ALT 653, Alk Phos 394 -GI consulted and following -04/21 CT abd/pelvis reviewed, shows multiple calcified gallstone and benign- appearing gallbladder; calcification uncinate process pancreas region common duct -04/21 MRCP showed multiple gallstone in the GB; some dilatation of the biliary tree as well as the CBD measuring 1.1cm, appears to be a small stone in the distal CBD -04/22 EGD with ERCP showed Gastritis, duodenitis, duodenal ulcer, multiple common bile duct stones removed with balloon -Clear liquid diet -Continue on Protonix -General surgery consulted, plan for laparoscopic cholecystectomy after cardiac clearance obtained -Supportive treatment with IVF, pain control with IV morphine prn -Continue to monitor LFTs BPH: chronic -continue patient's alfuzosin HTN/CAD: chronic -continue patient's coreg, enalapril, statin -monitor BP, adjust antihypertensives as needed -Cardiology consulted for cardiac clearance prior to surgery Hypothyroidism: chronic -continue patient's synthroid DVT Prophylaxis: teds/SCDs, avoid chemoprophylaxis with upcoming procedure Discharge Planning Patient going for cholecystectomy in 1-2 days. LFTs still significantly elevated. Will admit to inpatient. Brenda Norris PA-C Apr 23, 2017 9:55 am
--- NOTE | 2017-04-23 10:49 | HHI.GIFU ---
Subjective Remarks Pt resting in bed. Ate breakfast, tolerating. Denies nausea, vomiting. Some continue RUQ pain today. (Brook[place] Vela) Objective Vitals I&O Vital Signs Date Time Temp Pulse Resp B/P (MAP) Pulse Ox O2 Delivery O2 Flow Rate FiO2 04/23/17 09:21 18 04/23/17 08:05 97.8 74 18 152/78 (102) 95 04/23/17 04:42 98.2 74 18 135/73 (93) 96 04/22/17 23:39 97.9 71 18 170/86 (114) 95 04/22/17 21:55 69 151/72 (98) 04/22/17 20:24 75 174/82 (112) 04/22/17 19:54 97.9 76 17 176/86 (116) 96 04/22/17 17:40 98.2 68 14 128/68 (88) 97 Nasal Cannula 2 04/22/17 17:30 66 14 123/69 (87) 96 Nasal Cannula 2 04/22/17 17:18 98.2 68 14 125/61 (82) 93 Nasal Cannula 2 04/22/17 11:12 98.0 65 16 115/61 (79) 95 I/O 04/22/17 04/22/17 04/22/17 04/23/17 04/23/17 04/23/17 07:00 15:00 23:00 07:00 15:00 23:00 # Voids 1 2 Laboratory Laboratory Tests Test 04/23/17 06:05 Total Bilirubin 6.8 Direct Bilirubin 4.9 Indirect Bilirubin 1.9 Aspartate Amino Transf (AST/SGOT) 310 Alanine Aminotransferase (ALT/SGPT) 640 Alkaline Phosphatase 410 Total Protein 6.0 Albumin 2.9 Imaging Last Impressions GI Procedure 04/22/17 0000 Signed Impressions: Service Date/Time: Saturday, April 22, 2017 16:57 - CONCLUSION: ERCP as above. Kwame Khan MD Abdomen/Pelvis CT 04/21/17 1034 Signed Impressions: Service Date/Time: Friday, April 21, 2017 11:36 - CONCLUSION: 1. Very large prostate, bladder 2. Multiple calcified gallstones and benign-appearing gallbladder 3. Calcification uncinate process pancreas region common duct. Common duct stone cannot be excluded. 4. There are no renal calculi identified Adam G. Miles, MD FACR Cholangiopancreatography MRI 04/21/17 0000 Signed Impressions: Service Date/Time: Friday, April 21, 2017 19:06 - CONCLUSION: 1. Multiple gallstones in the gallbladder. 2. There is some dilatation of the biliary tree as well as the common bile duct measuring 1.1 cm in diameter. There appears to be a small stone in the distal common bile duct near the ampulla. 3. Nonspecific calcifications in the right lobe of the liver. 4. Benign-appearing left renal cysts. Steve Amato MD Physical Exam HEENT: Normocephalic; atraumatic (+) icterus CHEST: Even/unlabored, diffuse wheezing CARDIAC: RRR ABDOMEN: Nontender, semi-firm, RUQ tenderness, bowel sounds active EXTREMITIES: No clubbing, cyanosis, or edema. SKIN: (+) jaundice. 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 (Brook[place] Vela [facility]) Assessment and Plan Plan Assessment: - Transaminitis with abnormal CT findings- Pt complaining of RUQ pain for the past month, intermittent. Evaluated here for this complaint recently. US gallbladder (04/14) --> Cholelithiasis. No definite gallbladder wall thickening, pericholecystic fluid, or sonographic Mohan's sign. Pt was told pain was related to gallstones. LFTs were mildly elevated at this time, AST-84 and ALT-65. Returned to ER with complaints of pain now in right flank, pale colored stools, and dark urine. CT abdomen and pelvis W/O IV contrast (04/21) --> Multiple calcified gallstones and benign-appearing gallbladder. Calcification uncinate process pancreas r egion common duct. Common duct stone cannot be exclude. No renal calculi. Labs reveal transaminitis: AST-273 ALT-651 Alk phos-394 T bili-9.3. Denies any acid reflux, BRB in stool , nausea, vomiting, unintentional weight loss. Previous daily ETOH, drinking 2-3 beers a night, quit a month ago. Previous smoker, quit in 2008. Denies history of liver issues. Denies ever having EGD or colonoscopy 04/22/2017 elevated liver function tests, abnormal CT scan, status post ERCP (04/23) --> S/P EGD with ERCP yesterday --> Gastritis, duodenitis, multiple common bile duct stones removed with balloon, duodenal ulcer. Some elevation in LFTs today, could be secondary to edema and sphincterotomy site. Seen by GS who plans on lap abhijit once cleared by cardiology. If LFTs continue to remain elevated pt may need repeat ERCP for possible retained stone. Some drop in H/H today currently 12.7/36.8. No evidence of GIB. Pt has not had BM since procedure, denies nausea, vomiting. Plan - Monitor LFTs - Protonix - EGD biopsy pending - Lap abhijit per GS - Further recommendations to follow based on clinical course and results of above Pt has been seen and examined by myself and Dr. Gutierrez and this note is written on his behalf (Brooklyn Vela) Physician Comments patient seen and examined agree with above monitor labs continue present supportive care LFTs slow to resolve, possibly edema effect or retained stone vs other will monitor the labs and if any increase we will consider either IOC or repeat ERCP (Froy Gutierrez MD) [place] Vela Apr 23, 2017 10:49 Froy Gutierrez MD Apr 23, 2017 19:32
[2017-04-23 11:47] VITALS: BP 113/78; PULSE 76; RESP 18; TEMP 97.5; O2SAT 97
--- NOTE | 2017-04-23 16:26 | HHI.PR ---
cc: Nioclás Rendon MD Subjective Subjective Notes DAILY PROGRESS NOTE FOR SURGICAL ATTENDING, DR. NICOLÁS RENDON Comfortable Objective Vitals/I&O Vital Signs Date Time Temp Pulse Resp B/P (MAP) Pulse Ox O2 Delivery O2 Flow Rate FiO2 04/23/17 16:10 20 04/23/17 11:47 97.5 76 113/78 (90) 97 04/22/17 17:40 Nasal Cannula 2 Labs Laboratory Tests Test 04/23/17 06:05 Total Bilirubin 6.8 Direct Bilirubin 4.9 Indirect Bilirubin 1.9 Aspartate Amino Transf (AST/SGOT) 310 Alanine Aminotransferase (ALT/SGPT) 640 Alkaline Phosphatase 410 Total Protein 6.0 Albumin 2.9 Radiology Last Impressions GI Procedure 04/22/17 0000 Signed Impressions: Service Date/Time: Saturday, April 22, 2017 16:57 - CONCLUSION: ERCP as above. Kwame Khan MD Abdomen/Pelvis CT 04/21/17 1034 Signed Impressions: Service Date/Time: Friday, April 21, 2017 11:36 - CONCLUSION: 1. Very large prostate, bladder 2. Multiple calcified gallstones and benign-appearing gallbladder 3. Calcification uncinate process pancreas region common duct. Common duct stone cannot be excluded. 4. There are no renal calculi identified Adam House MD FACR Cholangiopancreatography MRI 04/21/17 0000 Signed Impressions: Service Date/Time: Friday, April 21, 2017 19:06 - CONCLUSION: 1. Multiple gallstones in the gallbladder. 2. There is some dilatation of the biliary tree as well as the common bile duct measuring 1.1 cm in diameter. There appears to be a small stone in the distal common bile duct near the ampulla. 3. Nonspecific calcifications in the right lobe of the liver. 4. Benign-appearing left renal cysts. Steve Amato MD Cardiovascular: Regular Abdomen: Other Extremities: Perfused, SCD's on A/P Problem List: (1) Choledocholithiasis ICD Codes: K80.50 - Calculus of bile duct without cholangitis or cholecystitis without obstruction Status: Resolved (2) Cholecystitis ICD Codes: K81.9 - Cholecystitis, unspecified Status: Acute (3) Hypercalcemia ICD Codes: E83.52 - Hypercalcemia Status: Acute (4) A-fib ICD Codes: I48.91 - Unspecified atrial fibrillation (5) Coronary artery disease ICD Codes: I25.10 - Atherosclerotic heart disease of [place] coronary artery without angina pectoris Status: Chronic Assessment and Plan The patient is a 76-year-old male with history of coronary artery disease with choledocholithiasis. The patient has undergone successful ERCP with decompression of the biliary tree. LFTs remain elevated Would recommend proceeding to the operating room with laparoscopic cholecystectomy. Due to his history of coronary artery disease and due to the less urgent nature of the surgery, it would be prudent to have him evaluated by cardiology prior to proceeding to the operating room Patient tells me the car pick up driver saw him and said everything was okay. NOTHING BY MOUTH TONIGHT IN ANTICIPATION HIS LIVER ENZYMES WILL GO ON A DOWNWARD TREND AND HE CAN PROCEED WITH A CHOLECYSTECTOMY ON MONDAY AND POSSIBLY MONDAY DEPENDING ON THE OR SCHEDULE Attending Statement NOTE FOR SURGICAL ATTENDING, DR. NICOLÁS RENDON I attest that I had a [id number] encounter with the patient on the same day, and personally performed and documented my assessment and findings in the medical record. The following services were provided during this hospital visit: Chart data review, vital sign assessments/reviewing monitor data Review of consultations notes if present. Medication orders/review and/or management Ordering and/or reviewing lab tests Ordering and/or interpreting/reviewing x-rays and/or diagnostic studies Care of the patient and discussion of the patient with the care team Documentation time To help prompt me to consider important information that might be impacting today's encounter and assessment, information from prior notes written by myself or my colleagues may have been "brought forward/copy and pasted" into today's note. Problem Qualifiers (1) A-fib: Qualified Codes: I48.2 - Chronic atrial fibrillation Nicolás Rendon MD Apr 23, 2017 16:26
[2017-04-23] MEDS ORDERED: ceFAZolin 2 GM PREMIX 50 ML IV SCH (16:30)
--- NOTE | 2017-04-23 17:03 | MB ---
cc: MULU CHARLES M.D. DATE OF CONSULTATION 04/23/2017 REASON FOR CONSULTATION Heart failure for cardiology clearance. HISTORY OF THE PRESENT ILLNESS Mr. Maya is a 76-year-old gentleman with history of coronary artery disease, recent echo showed ejection around 35%, previous ____ plus stent to LAD, recent hospitalization admitted due to jaundice and cholelithiasis. ERCP was performed. It was successful. The patient is being scheduled for laparoscopic cholecystectomy and I was consulted for evaluation and clearance. The chart was reviewed. The patient was evaluated. ALLERGIES HYDROCODONE AND LISINOPRIL. SOCIAL HISTORY Gentleman quit drinking a month ago. Quit smoking in 2008. FAMILY HISTORY Noncontributory to his current medical condition. MEDICATIONS Currently: 1. He is on Oral. 2. He is on Coreg 2.125 mg twice a day. 3. He is on enalapril 2.5 mg a day. 4. He is on Levoxyl 25 mcg a day. 5. Magnesium. 6. He is on Protonix 40 mg q.12h. 7. Flomax. REVIEW OF SYSTEMS He refers feeling better. No chest pain. No discomfort. No nausea, no fever. PHYSICAL EXAMINATION GENERAL: Alert, fully oriented. VITAL SIGNS: His blood pressure 113/78, pulse 76, respiratory rate 18. LUNGS: Ventilated. CARDIOVASCULAR: S1, S2. No gallop. No murmur. ABDOMEN: Soft. No mass. No bruit. EXTREMITIES: With no edema. Electrocardiogram that was performed on previous hospitalization in March 17, 2017 indicates atrial fibrillation with a rate of around 170 beats per minute. ASSESSMENT AND RECOMMENDATIONS Mr. Maya has a history of apparent heart failure. He is on Coreg and enalapril. The gentleman is very active. Last echo read by Dr. Orozco indicated ejection of around 35-40%. The gentleman walks three miles a day and does push ups and sit ups. He is very active. He does not experience chest pain. No shortness of breath. At this point my recommendation is continue with current management. The patient is cleared for surgery. I will monitor him during hospitalization if necessary. MD GARY Grossman/INDY /3:24 PM /4:43 PM
[2017-04-23 17:14] VITALS: BP 132/69; PULSE 76; RESP 18; TEMP 97.6; O2SAT 97
[2017-04-23] MEDS: PANTOPRAZOLE SOD 40 MG DELAYED RELEASE TAB PO SCH (20:15)
[2017-04-23] MEDS: PRAVASTATIN SOD 80 MG TAB PO SCH (20:15)
[2017-04-23 20:42] VITALS: BP 130/66; PULSE 62; RESP 18; TEMP 98; O2SAT 96
[2017-04-23 23:25] VITALS: BP 149/68; PULSE 84; RESP 18; TEMP 98.1; O2SAT 96
[2017-04-24] MEDS: MORPHINE SULFATE 2 MG/ML INJ IV PUSH PRN ×6 (00:23→20:52)
[2017-04-24] MEDS ORDERED: POVIDONE IODINE 5% (ANTISEPSIS KIT) 4 APPLICATIONS EACH NARE PRN (02:00)
[2017-04-24] MEDS ORDERED: CHLORHEXIDINE GLUCONATE 2 % 1 PACK (2 CLOTHS) TOPICAL PRN (02:00)
[2017-04-24] MEDS ORDERED: LACTATED RINGER'S 1000 ML IV PRN (02:00)
[2017-04-24] MEDS: SODIUM CHLOR 0.9% 1000 ML INJ 1,000 ML IV SCH ×2 (02:10→10:54)
[2017-04-24 03:26] VITALS: BP 135/68; PULSE 85; RESP 18; TEMP 98.1; O2SAT 98
[2017-04-24 07:30] VITALS: BP 131/73; PULSE 90; RESP 18; TEMP 98.6; O2SAT 94
[2017-04-24] MEDS: TAMSULOSIN HCL 0.4 MG CAP PO SCH (07:49)
[2017-04-24] MEDS: DOCUSATE SODIUM 50 MG/SENNA 8.6 MG TAB PO SCH ×2 (07:49→20:51)
[2017-04-24] MEDS: ENALAPRIL MALEATE 2.5 MG TAB PO SCH (07:49)
[2017-04-24] MEDS: CARVEDILOL 3.125 MG TAB PO SCH ×2 (07:49→20:51)
[2017-04-24] MEDS: LEVOTHYROXINE SODIUM 25 MCG TAB PO SCH (07:49)
[2017-04-24] MEDS: PANTOPRAZOLE SOD 40 MG DELAYED RELEASE TAB PO SCH ×2 (07:49→20:51)
[2017-04-24] MEDS: SODIUM CHLORIDE 0.9% FLUSH 10 ML FLUSH IV FLUSH SCH ×2 (07:50→21:00)
--- NOTE | 2017-04-24 08:11 | PD.CARD.PN ---
Subjective Subjective Remarks Feeling okay this morning. Objective Medications Current Medications Medications (Trade) Dose Ordered Sig/Paolo Route Start Time Stop Time Status Last Admin Sodium Chloride 1,000 ml @ 100 mls/hr Q10H IV 04/21/17 13:12 04/24/17 02:10 (NS Flush) 2 ml UNSCH PRN IV FLUSH 04/21/17 13:15 (NS Flush) 2 ml BID IV FLUSH 04/21/17 21:00 04/23/17 20:16 (Zofran Inj) 4 mg Q6H PRN IVP 04/21/17 13:15 (Narcan Inj) 0.4 mg UNSCH PRN IV PUSH 04/21/17 13:15 (Kacie-Colace) 1 tab BID PO 04/21/17 21:00 04/24/17 07:49 (Milk Of Magnesia Liq) 30 ml Q12H PRN PO 04/21/17 13:15 (Senokot) 17.2 mg Q12H PRN PO 04/21/17 13:15 (Dulcolax Supp) 10 mg DAILY PRN RECTAL 04/21/17 13:15 (Lactulose Liq) 30 ml DAILY PRN PO 04/21/17 13:15 (Coreg) 3.125 mg BID PO 04/21/17 21:00 04/24/17 07:49 (Vasotec) 2.5 mg DAILY PO 04/22/17 09:00 04/24/17 07:49 (Synthroid) 25 mcg DAILY@0600 PO 04/22/17 06:00 04/24/17 07:49 (Flomax) 0.4 mg DAILY PO 04/22/17 09:00 04/24/17 07:49 (Pravachol) 80 mg HS PO 04/21/17 21:00 04/23/17 20:15 (Morphine Inj) 2 mg Q3H PRN IV PUSH 04/22/17 11:00 04/24/17 07:51 (Protonix) 40 mg Q12HR PO 04/23/17 21:00 04/24/17 07:49 Cefazolin Sodium/ Dextrose 50 ml @ 100 mls/hr PUG MILL OPERATOR IV 04/23/17 16:30 04/27/17 16:29 Lactated Ringer's 1,000 ml @ 30 mls/hr Q24H PRN IV 04/24/17 02:00 04/27/17 01:59 (Betadine 5% Antisepsis Kit) 1 applic PUG MILL OPERATOR PRN EACH NARE 04/24/17 02:00 04/27/17 01:59 (Chlorhexidine 2% Cloth) 3 pack PUG MILL OPERATOR PRN TOPICAL 04/24/17 02:00 04/27/17 01:59 Vital Signs / I&O Vital Signs Date Time Temp Pulse Resp B/P (MAP) Pulse Ox O2 Delivery O2 Flow Rate FiO2 04/24/17 07:30 98.6 90 18 131/73 (92) 94 04/24/17 03:26 98.1 85 18 135/68 (90) 98 04/23/17 23:25 98.1 84 18 149/68 (95) 96 04/23/17 20:42 98.0 62 18 130/66 (87) 96 04/23/17 17:14 97.6 76 18 132/69 (90) 97 04/23/17 16:10 20 04/23/17 11:47 97.5 76 18 113/78 (90) 97 I/O 04/23/17 04/23/17 04/23/17 04/24/17 04/24/17 04/24/17 07:00 15:00 23:00 07:00 15:00 23:00 Intake Total 225 ml Balance 225 ml Intake Oral 225 ml Physical Exam GENERAL: Well-nourished, well-developed patient. SKIN: Warm and dry. HEAD: Normocephalic. EYES: No scleral icterus. No injection or drainage. NECK: Supple, trachea midline. No JVD or lymphadenopathy. CARDIOVASCULAR: Regular rate and rhythm without murmurs, gallops, or rubs. RESPIRATORY: Breath sounds equal bilaterally. No accessory muscle use. GASTROINTESTINAL: Abdomen soft, mildly tender to palpation, nondistended. EXTREMITIES: No cyanosis, or edema. NEUROLOGICAL: Awake, alert, and oriented x 3. Non-focal. Imaging Last Impressions GI Procedure 04/22/17 0000 Signed Impressions: Service Date/Time: Saturday, April 22, 2017 16:57 - CONCLUSION: ERCP as above. Kwame Khan MD Abdomen/Pelvis CT 04/21/17 1034 Signed Impressions: Service Date/Time: Friday, April 21, 2017 11:36 - CONCLUSION: 1. Very large prostate, bladder 2. Multiple calcified gallstones and benign-appearing gallbladder 3. Calcification uncinate process pancreas region common duct. Common duct stone cannot be excluded. 4. There are no renal calculi identified Adam House MD FACR Cholangiopancreatography MRI 04/21/17 0000 Signed Impressions: Service Date/Time: Friday, April 21, 2017 19:06 - CONCLUSION: 1. Multiple gallstones in the gallbladder. 2. There is some dilatation of the biliary tree as well as the common bile duct measuring 1.1 cm in diameter. There appears to be a small stone in the distal common bile duct near the ampulla. 3. Nonspecific calcifications in the right lobe of the liver. 4. Benign-appearing left renal cysts. Steve Amato MD Assessment and Plan Problem List: (1) Cholecystitis ICD Codes: K81.9 - Cholecystitis, unspecified Status: Acute Plan: Patient has a history of heart failure with ejection fraction 35-40% last echo, however remains very active, walks 3 miles a day with other exercise. He has been cleared for surgery from a cardiology standpoint per my discussion with Dr. mortensen. Lynn Monroy Apr 24, 2017 08:11
--- NOTE | 2017-04-24 09:21 | HHI.PR ---
Subjective Remarks Follow up for choledocholithiasis. The patient reports continued RUQ pain. Denies fevers/chills, nausea/vomiting. Still no BM since 04/20. He denies feeling constipated or distended. Explained he is on pain medications which will make him at risk for constipation. He agrees to laxatives post surgery if still no BM. Objective Vitals Vital Signs Date Time Temp Pulse Resp B/P (MAP) Pulse Ox O2 Delivery O2 Flow Rate FiO2 04/24/17 08:29 20 04/24/17 07:30 98.6 90 18 131/73 (92) 94 04/24/17 03:26 98.1 85 18 135/68 (90) 98 04/23/17 23:25 98.1 84 18 149/68 (95) 96 04/23/17 20:42 98.0 62 18 130/66 (87) 96 04/23/17 17:14 97.6 76 18 132/69 (90) 97 04/23/17 11:47 97.5 76 18 113/78 (90) 97 I/O 04/23/17 04/23/17 04/23/17 04/24/17 04/24/17 04/24/17 07:00 15:00 23:00 07:00 15:00 23:00 Intake Total 225 ml Balance 225 ml Intake Oral 225 ml Result Diagram: 04/22/17 0630 04/22/17 0630 Imaging Last Impressions GI Procedure 04/22/17 0000 Signed Impressions: Service Date/Time: Saturday, April 22, 2017 16:57 - CONCLUSION: ERCP as above. Kwame Khan MD Abdomen/Pelvis CT 04/21/17 1034 Signed Impressions: Service Date/Time: Friday, April 21, 2017 11:36 - CONCLUSION: 1. Very large prostate, bladder 2. Multiple calcified gallstones and benign-appearing gallbladder 3. Calcification uncinate process pancreas region common duct. Common duct stone cannot be excluded. 4. There are no renal calculi identified Adam House MD FACR Cholangiopancreatography MRI 04/21/17 0000 Signed Impressions: Service Date/Time: Friday, April 21, 2017 19:06 - CONCLUSION: 1. Multiple gallstones in the gallbladder. 2. There is some dilatation of the biliary tree as well as the common bile duct measuring 1.1 cm in diameter. There appears to be a small stone in the distal common bile duct near the ampulla. 3. Nonspecific calcifications in the right lobe of the liver. 4. Benign-appearing left renal cysts. Steve Amato MD Objective Remarks GENERAL: Well-nourished, well-developed pleasant male patient in NAD. Hoarse/ soft voice. SKIN: Warm and dry. No rash. HEENT: Normocephalic. Atraumatic.Pupils equal and round. Mucous membranes pink and moist. CARDIOVASCULAR: Regular rate and rhythm. S1, S2 noted. No murmur appreciated. RESPIRATORY: No accessory muscle use. Clear to auscultation. Breath sounds equal bilaterally. GASTROINTESTINAL: Abdomen soft, nondistended, mild RUQ TTP today. Normoactive bowel sounds x4. MUSCULOSKELETAL: No obvious deformities. Extremities without clubbing, cyanosis , or edema. NEUROLOGICAL: Awake and alert. No obvious cranial nerve deficits. Motor grossly within normal limits. Normal speech. PSYCHIATRIC: Appropriate mood and affect; insight and judgment normal. Procedures 04/22 - EGD with ERCP showed Gastritis, duodenitis, duodenal ulcer, multiple common bile duct stones removed with balloon Medications and IVs Current Medications Medications (Trade) Dose Ordered Sig/Paolo Route Start Time Stop Time Status Last Admin Sodium Chloride 1,000 ml @ 100 mls/hr Q10H IV 04/21/17 13:12 04/24/17 02:10 (NS Flush) 2 ml UNSCH PRN IV FLUSH 04/21/17 13:15 (NS Flush) 2 ml BID IV FLUSH 04/21/17 21:00 04/23/17 20:16 (Zofran Inj) 4 mg Q6H PRN IVP 04/21/17 13:15 (Narcan Inj) 0.4 mg UNSCH PRN IV PUSH 04/21/17 13:15 (Kacie-Colace) 1 tab BID PO 04/21/17 21:00 04/24/17 07:49 (Milk Of Magnesia Liq) 30 ml Q12H PRN PO 04/21/17 13:15 (Senokot) 17.2 mg Q12H PRN PO 04/21/17 13:15 (Dulcolax Supp) 10 mg DAILY PRN RECTAL 04/21/17 13:15 (Lactulose Liq) 30 ml DAILY PRN PO 04/21/17 13:15 (Coreg) 3.125 mg BID PO 04/21/17 21:00 04/24/17 07:49 (Vasotec) 2.5 mg DAILY PO 04/22/17 09:00 04/24/17 07:49 (Synthroid) 25 mcg DAILY@0600 PO 04/22/17 06:00 04/24/17 07:49 (Flomax) 0.4 mg DAILY PO 04/22/17 09:00 04/24/17 07:49 (Pravachol) 80 mg HS PO 04/21/17 21:00 04/23/17 20:15 (Morphine Inj) 2 mg Q3H PRN IV PUSH 04/22/17 11:00 04/24/17 07:51 (Protonix) 40 mg Q12HR PO 04/23/17 21:00 04/24/17 07:49 Cefazolin Sodium/ Dextrose 50 ml @ 100 mls/hr MANAGER OF FINANCIAL PLANNING IV 04/23/17 16:30 04/27/17 16:29 Lactated Ringer's 1,000 ml @ 30 mls/hr Q24H PRN IV 04/24/17 02:00 04/27/17 01:59 (Betadine 5% Antisepsis Kit) 1 applic MANAGER OF [employer]AN[employer] PLANNING PRN EACH NARE 04/24/17 02:00 04/27/17 01:59 (Chlorhexidine 2% Cloth) 3 pack MANAGER OF FINANCIAL PLANNING PRN TOPICAL 04/24/17 02:00 04/27/17 01:59 A/P Problem List: (1) Choledocholithiasis ICD Code: K80.50 - Calculus of bile duct without cholangitis or cholecystitis without obstruction Status: Resolved Assessment and Plan 76-year-old male with past medical history of HTN, HLD, hypothyroidism, BPH, paroxysmal atrial fibrillation, history of AK in 2009 with stent x1, presented with RUQ pain, sent by [place] doctor Choledocholithiasis with Hyperbilirubinemia/Elevated LFTs: Tbili 9.3, AST 273, ALT 653, Alk Phos 394 -GI consulted and following -04/21 CT abd/pelvis reviewed, shows multiple calcified gallstone and benign- appearing gallbladder; calcification uncinate process pancreas region common duct -04/21 MRCP showed multiple gallstone in the GB; some dilatation of the biliary tree as well as the CBD measuring 1.1cm, appears to be a small stone in the distal CBD -04/22 EGD with ERCP showed Gastritis, duodenitis, duodenal ulcer, multiple common bile duct stones removed with balloon -Clear liquid diet, now NPO for surgery -Continue on Protonix -General surgery consulted, plan for laparoscopic cholecystectomy -Patient cleared for surgery by cardiology -Supportive treatment with IVF, pain control with IV morphine prn -Continue to monitor LFTs BPH: chronic -continue patient's alfuzosin HTN/CAD: chronic -continue patient's coreg, enalapril, statin -monitor BP, adjust antihypertensives as needed -Cardiology consulted, cleared patient for surgery Hypothyroidism: chronic -continue patient's synthroid Constipation: patient with no BM since 04/20 -on kacie-colace bid -patient has been declining any further laxatives as he feels he's not had a BM because he hasn't ate any solid foods; explained opioid meds put him at risk for constipation; patient agrees to laxative meds post surgery if still no BM -constipation med protocol ordered DVT Prophylaxis: teds/SCDs, avoid chemoprophylaxis with upcoming procedure Discharge Planning Patient going for cholecystectomy likely today. Admitted to inpatient, awaiting bed. 1045hrs: Patient's cholecystectomy delayed until tomorrow. Clear liquid diet. Will give MOM x1 now for constipation. NPO after midnight. Brenda Norris PA-C Apr 24, 2017 09:21
[2017-04-24 10:05] LABS: AUTOMATED NEUTROPHIL # 7.2 TH/MM3 (1.8-7.7); BASOPHIL % 0.3 % (0.0-2.0); EOSINOPHIL # 0.1 TH/MM3 (0-0.4); EOSINOPHIL % 0.8 % (0.0-4.0); HEMATOCRIT 28.6 % (39.0-51.0); HEMOGLOBIN 9.8 GM/DL (13.0-17.0); LYMPHOCYTE # 0.8 TH/MM3 (1.0-4.8); MEAN CORPUSCULAR HEMOGLOBIN 30.6 PG (27.0-34.0); MEAN CORPUSCULAR HGB CONC 34.4 % (32.0-36.0); MONO % 10.4 % (0.0-8.0); MONOCYTE # 0.9 TH/MM3 (0-0.9); NEUT % 79.5 % (16.0-70.0); PLATELET COUNT 174 TH/MM3 (150-450); RED BLOOD COUNT 3.21 MIL/MM3 (4.50-5.90); WHITE BLOOD COUNT 9.1 TH/MM3 (4.0-11.0)
--- NOTE | 2017-04-24 10:10 | HHI.GIFU ---
Subjective Remarks Pt resting in bed. NO GI complaints. (Mary Stallworth) Objective Vitals I&O Vital Signs Date Time Temp Pulse Resp B/P (MAP) Pulse Ox O2 Delivery O2 Flow Rate FiO2 04/24/17 08:29 20 04/24/17 07:30 98.6 90 18 131/73 (92) 94 04/24/17 03:26 98.1 85 18 135/68 (90) 98 04/23/17 23:25 98.1 84 18 149/68 (95) 96 04/23/17 20:42 98.0 62 18 130/66 (87) 96 04/23/17 17:14 97.6 76 18 132/69 (90) 97 04/23/17 11:47 97.5 76 18 113/78 (90) 97 I/O 04/23/17 04/23/17 04/23/17 04/24/17 04/24/17 04/24/17 07:00 15:00 23:00 07:00 15:00 23:00 Intake Total 225 ml Balance 225 ml Intake Oral 225 ml # Voids 1 Laboratory Laboratory Tests Test 04/24/17 08:30 White Blood Count 9.1 Red Blood Count 3.21 Hemoglobin 9.8 Hematocrit 28.6 Mean Corpuscular Volume 89.0 Mean Corpuscular Hemoglobin 30.6 Mean Corpuscular Hemoglobin Concent 34.4 Red Cell Distribution Width 14.0 Platelet Count 174 Mean Platelet Volume 9.0 Neutrophils (%) (Auto) 79.5 Lymphocytes (%) (Auto) 9.0 Monocytes (%) (Auto) 10.4 Eosinophils (%) (Auto) 0.8 Basophils (%) (Auto) 0.3 Neutrophils # (Auto) 7.2 Lymphocytes # (Auto) 0.8 Monocytes # (Auto) 0.9 Eosinophils # (Auto) 0.1 Basophils # (Auto) 0.0 CBC Comment DIFF FINAL Differential Comment Imaging Last Impressions GI Procedure 04/22/17 0000 Signed Impressions: Service Date/Time: Saturday, April 22, 2017 16:57 - CONCLUSION: ERCP as above. Kwame Khan MD Abdomen/Pelvis CT 04/21/17 1034 Signed Impressions: Service Date/Time: Friday, April 21, 2017 11:36 - CONCLUSION: 1. Very large prostate, bladder 2. Multiple calcified gallstones and benign-appearing gallbladder 3. Calcification uncinate process pancreas region common duct. Common duct stone cannot be excluded. 4. There are no renal calculi identified Adam House MD FACR Cholangiopancreatography MRI 04/21/17 0000 Signed Impressions: Service Date/Time: Friday, April 21, 2017 19:06 - CONCLUSION: 1. Multiple gallstones in the gallbladder. 2. There is some dilatation of the biliary tree as well as the common bile duct measuring 1.1 cm in diameter. There appears to be a small stone in the distal common bile duct near the ampulla. 3. Nonspecific calcifications in the right lobe of the liver. 4. Benign-appearing left renal cysts. Steve Amato MD Physical Exam HEENT: Normocephalic; atraumatic (+) icterus CHEST: Even/unlabored, diffuse wheezing CARDIAC: RRR ABDOMEN: Nontender, semi-firm, nontender, bowel sounds active EXTREMITIES: No clubbing, cyanosis, or edema. SKIN: (+) jaundice. TANK WORKER: No focal deficits; alert and oriented times three. (Mary Stallworth [facility]) Assessment and Plan Plan Assessment: - Transaminitis with abnormal CT findings- Pt complaining of RUQ pain for the past month, intermittent. Evaluated here for this complaint recently. US gallbladder (04/14) --> Cholelithiasis. No definite gallbladder wall thickening, pericholecystic fluid, or sonographic Mohan's sign. Pt was told pain was related to gallstones. LFTs were mildly elevated at this time, AST-84 and ALT-65. Returned to ER with complaints of pain now in right flank, pale colored stools, and dark urine. CT abdomen and pelvis W/O IV contrast (04/21) --> Multiple calcified gallstones and benign-appearing gallbladder. Calcification uncinate process pancreas r egion common duct. Common duct stone cannot be exclude. No renal calculi. Labs reveal transaminitis: AST-273 ALT-651 Alk phos-394 T bili-9.3. Denies any acid reflux, BRB in stool , nausea, vomiting, unintentional weight loss. Previous daily ETOH, drinking 2-3 beers a night, quit a month ago. Previous smoker, quit in 2008. Denies history of liver issues. Denies ever having EGD or colonoscopy 04/22/2017 elevated liver function tests, abnormal CT scan, status post ERCP (04/23) --> S/P EGD with ERCP yesterday --> Gastritis, duodenitis, multiple common bile duct stones removed with balloon, duodenal ulcer. Some elevation in LFTs today, could be secondary to edema and sphincterotomy site. Seen by GS who plans on lap abhijit once cleared by cardiology. If LFTs continue to remain elevated pt may need repeat ERCP for possible retained stone. Some drop in H/H today currently 12.7/36.8. No evidence of GIB. Pt has not had BM since procedure, denies nausea, vomiting. 04/24/17 awaiting lap abhijit, cleared by cardiology. LFTs remain elevated. denies abd pain today. Plan - diet per GS - await surgery - Monitor LFTs - Protonix - EGD biopsy pending - supportive care Pt has been seen and examined by myself and Dr. Gutierrez and this note is written on his behalf (Mary Stallowrth) Physician Comments Consider EUS if liver panel continues to be abnormal. (Juan Antonio Patel MD) Physician Comments Seen by Dr. patel (Froy Gutierrez MD) Mary Stallworth Apr 24, 2017 10:10 Juan Antonio Patel MD Apr 24, 2017 16:14 Froy Gutierrez MD Apr 24, 2017 19:44
[2017-04-24 10:26] LABS: ALBUMIN 2.5 GM/DL (3.4-5.0); ALT (GPT) 862 U/L (12-78); AST (GOT) 411 U/L (15-37); BICARBONATE 24.8 MEQ/L (21.0-32.0); BLOOD UREA NITROGEN 8 MG/DL (7-18); CALCIUM 8.9 MG/DL (8.5-10.1); CHLORIDE 105 MEQ/L (98-107); GLOMERULAR FILTRATION RATE 131 ML/MIN (>89); GLUCOSE,RANDOM 94 MG/DL (74-106); SODIUM (NA) 138 MEQ/L (136-145)
[2017-04-24 10:29] LABS: ALKALINE PHOSPHATASE 294 U/L (45-117); TOTAL BILIRUBIN ADULT 4.8 MG/DL (0.2-1.0); TOTAL PROTEIN 5.3 GM/DL (6.4-8.2)
[2017-04-24 11:35] VITALS: BP 121/59; PULSE 78; RESP 20; TEMP 98.7; O2SAT 93
[2017-04-24] MEDS ORDERED: POTASSIUM CHLORIDE 20 MEQ CONTROLLED RELEASE TAB PO ONE (12:00)
[2017-04-24] MEDS ORDERED: MAGNESIUM HYDROXIDE SUSP 30 ML CUP PO ONE (12:00)
[2017-04-24 15:56] VITALS: BP 143/73; PULSE 86; RESP 23; TEMP 99.6; O2SAT 94
--- NOTE | 2017-04-24 16:16 | HHI.PR ---
cc: Kiko Correa MD Subjective Subjective Notes Resting in bed Still with some abdominal pain Objective Vitals/I&O Vital Signs Date Time Temp Pulse Resp B/P (MAP) Pulse Ox O2 Delivery O2 Flow Rate FiO2 04/24/17 15:56 99.6 86 23 143/73 (96) 94 04/22/17 17:40 Nasal Cannula 2 Labs Laboratory Tests Test 04/24/17 08:30 White Blood Count 9.1 Red Blood Count 3.21 Hemoglobin 9.8 Hematocrit 28.6 Mean Corpuscular Volume 89.0 Mean Corpuscular Hemoglobin 30.6 Mean Corpuscular Hemoglobin Concent 34.4 Red Cell Distribution Width 14.0 Platelet Count 174 Mean Platelet Volume 9.0 Neutrophils (%) (Auto) 79.5 Lymphocytes (%) (Auto) 9.0 Monocytes (%) (Auto) 10.4 Eosinophils (%) (Auto) 0.8 Basophils (%) (Auto) 0.3 Neutrophils # (Auto) 7.2 Lymphocytes # (Auto) 0.8 Monocytes # (Auto) 0.9 Eosinophils # (Auto) 0.1 Basophils # (Auto) 0.0 CBC Comment DIFF FINAL Differential Comment Blood Urea Nitrogen 8 Creatinine 0.60 Random Glucose 94 Total Protein 5.3 Albumin 2.5 Calcium Level 8.9 Magnesium Level 2.0 Alkaline Phosphatase 294 Aspartate Amino Transf (AST/SGOT) 411 Alanine Aminotransferase (ALT/SGPT) 862 Total Bilirubin 4.8 Sodium Level 138 Potassium Level 3.3 Chloride Level 105 Carbon Dioxide Level 24.8 Anion Gap 8 Estimat Glomerular Filtration Rate 131 Radiology Last Impressions GI Procedure 04/22/17 0000 Signed Impressions: Service Date/Time: Saturday, April 22, 2017 16:57 - CONCLUSION: ERCP as above. Kwame Khan MD Abdomen/Pelvis CT 04/21/17 1034 Signed Impressions: Service Date/Time: Friday, April 21, 2017 11:36 - CONCLUSION: 1. Very large prostate, bladder 2. Multiple calcified gallstones and benign-appearing gallbladder 3. Calcification uncinate process pancreas region common duct. Common duct stone cannot be excluded. 4. There are no renal calculi identified Adam House MD FACR Cholangiopancreatography MRI 04/21/17 0000 Signed Impressions: Service Date/Time: Friday, April 21, 2017 19:06 - CONCLUSION: 1. Multiple gallstones in the gallbladder. 2. There is some dilatation of the biliary tree as well as the common bile duct measuring 1.1 cm in diameter. There appears to be a small stone in the distal common bile duct near the ampulla. 3. Nonspecific calcifications in the right lobe of the liver. 4. Benign-appearing left renal cysts. Steve Amato MD Cardiovascular: Regular Lungs: Clear Abdomen: Other (RUQ tenderness with palpation ) Extremities: No edema A/P Problem List: (1) Choledocholithiasis ICD Codes: K80.50 - Calculus of bile duct without cholangitis or cholecystitis without obstruction Status: Resolved (2) Cholecystitis ICD Codes: K81.9 - Cholecystitis, unspecified Status: Acute (3) Hypercalcemia ICD Codes: E83.52 - Hypercalcemia Status: Acute (4) A-fib ICD Codes: I48.91 - Unspecified atrial fibrillation (5) Coronary artery disease ICD Codes: I25.10 - Atherosclerotic heart disease of [place] coronary artery without angina pectoris Status: Chronic Assessment and Plan 76 year old male with choledocholithiasis -Continues to have elevated liver enzymes -Clear liquids -Has been cleared by Cardiology -Will plan for lap abhijit once liver enzymes trend down more -Discussed with patient Attending Statement The exam, history, and the medical decision-making described in the above note were completed with the assistance of the mid-level provider. I reviewed and agree with the findings presented. I attest that I had a [id number] encounter with the patient on the same day, and personally performed and documented my assessment and findings in the medical record. Cholecystitis/choledocholithiasis s/p ERCP, duct clear, will need lap abhijit when stable (cardiology cleared, etc.) Problem Qualifiers (1) A-fib: Qualified Codes: I48.2 - Chronic atrial fibrillation Heidi Lehman Apr 24, 2017 16:16 Kiko Correa MD Apr 28, 2017 06:50
[2017-04-24 20:24] VITALS: BP 124/70; PULSE 85; RESP 18; TEMP 99.5; O2SAT 98
[2017-04-24] MEDS: PRAVASTATIN SOD 80 MG TAB PO SCH (20:51)
[2017-04-25] VITALS (7 sets, daily range): BP systolic 94–132; BP diastolic 54–76; PULSE 76–84; RESP 14–21; TEMP 97.2–99; O2SAT 95–98
[2017-04-25] MEDS: MORPHINE SULFATE 2 MG/ML INJ IV PUSH PRN ×6 (00:03→23:52)
[2017-04-25] MEDS: SODIUM CHLOR 0.9% 1000 ML INJ 1,000 ML IV SCH ×2 (00:04→09:14)
[2017-04-25] MEDS: LEVOTHYROXINE SODIUM 25 MCG TAB PO SCH (05:46)
[2017-04-25 08:21] LABS: ALBUMIN 2.3 GM/DL (3.4-5.0); ALT (GPT) 575 U/L (12-78); AST (GOT) 136 U/L (15-37); BICARBONATE 27.1 MEQ/L (21.0-32.0); BLOOD UREA NITROGEN 8 MG/DL (7-18); CALCIUM 8.6 MG/DL (8.5-10.1); CHLORIDE 106 MEQ/L (98-107); CREATININE 0.51 MG/DL (0.60-1.30); GLOMERULAR FILTRATION RATE 158 ML/MIN (>89); GLUCOSE,RANDOM 85 MG/DL (74-106); SODIUM (NA) 139 MEQ/L (136-145)
[2017-04-25 08:23] LABS: ALKALINE PHOSPHATASE 248 U/L (45-117); TOTAL BILIRUBIN ADULT 4.1 MG/DL (0.2-1.0); TOTAL PROTEIN 5.1 GM/DL (6.4-8.2)
[2017-04-25] MEDS: SODIUM CHLORIDE 0.9% FLUSH 10 ML FLUSH IV FLUSH SCH ×2 (08:57→20:33)
[2017-04-25] MEDS: DOCUSATE SODIUM 50 MG/SENNA 8.6 MG TAB PO SCH ×2 (09:00→20:32)
[2017-04-25] MEDS: CARVEDILOL 3.125 MG TAB PO SCH ×2 (09:12→20:31)
[2017-04-25] MEDS: PANTOPRAZOLE SOD 40 MG DELAYED RELEASE TAB PO SCH ×2 (09:12→20:31)
[2017-04-25] MEDS: ENALAPRIL MALEATE 2.5 MG TAB PO SCH (09:12)
[2017-04-25] MEDS: TAMSULOSIN HCL 0.4 MG CAP PO SCH (09:12)
--- NOTE | 2017-04-25 10:32 | HHI.PR ---
Subjective Remarks Follow-up on patient with choledocholithiasis. Patient seen and examined. Patient denies any complaints of nausea, vomiting or abdominal pain this morning. LFTs trending down but still elevated. Scheduled for laparoscopic cholecystectomy this morning but canceled secondary to persistent LFT elevation. Started on clear liquid diet per GS. Discussed briefly with Maite JENSEN. Will repeat LFTs in a.m. He reports small bowel movement yesterday. Objective Vitals Vital Signs Date Time Temp Pulse Resp B/P (MAP) Pulse Ox O2 Delivery O2 Flow Rate FiO2 04/25/17 07:35 98.7 84 21 130/72 (91) 95 04/25/17 06:50 18 04/25/17 04:06 97.2 82 16 132/72 (92) 98 04/25/17 00:19 98.9 79 18 118/76 (90) 98 04/24/17 20:24 99.5 85 18 124/70 (88) 98 04/24/17 15:56 99.6 86 23 143/73 (96) 94 04/24/17 11:35 98.7 78 20 121/59 (79) 93 I/O 04/24/17 04/24/17 04/24/17 04/25/17 04/25/17 04/25/17 07:00 15:00 23:00 07:00 15:00 23:00 Intake Total 100 ml Balance 100 ml Intake Oral 100 ml # Voids 1 1 Result Diagram: 04/24/17 0830 04/25/17 0630 Imaging Last Impressions GI Procedure 04/22/17 0000 Signed Impressions: Service Date/Time: Saturday, April 22, 2017 16:57 - CONCLUSION: ERCP as above. Kwame Khan MD Abdomen/Pelvis CT 04/21/17 1034 Signed Impressions: Service Date/Time: Friday, April 21, 2017 11:36 - CONCLUSION: 1. Very large prostate, bladder 2. Multiple calcified gallstones and benign-appearing gallbladder 3. Calcification uncinate process pancreas region common duct. Common duct stone cannot be excluded. 4. There are no renal calculi identified Adam House MD FACR Cholangiopancreatography MRI 04/21/17 0000 Signed Impressions: Service Date/Time: Friday, April 21, 2017 19:06 - CONCLUSION: 1. Multiple gallstones in the gallbladder. 2. There is some dilatation of the biliary tree as well as the common bile duct measuring 1.1 cm in diameter. There appears to be a small stone in the distal common bile duct near the ampulla. 3. Nonspecific calcifications in the right lobe of the liver. 4. Benign-appearing left renal cysts. Steve Amato MD Objective Remarks GENERAL: Well-nourished, well-developed pleasant male patient in NAD. Hoarse/soft voice. Awake and alert. Appears comfortable. SKIN: Warm and dry. HEENT: Normocephalic. Atraumatic. EOMI. Bilateral sclera slightly icteric. Mucous membranes pink and moist. CARDIOVASCULAR: Regular rate and rhythm. S1, S2 noted. No murmur appreciated. RESPIRATORY: Nonlabored. Clear to auscultation. Breath sounds equal bilaterally. GASTROINTESTINAL: Abdomen soft, nondistended, mild RUQ tenderness to palpation. Normoactive bowel sounds x4. MUSCULOSKELETAL: No obvious deformities. Extremities without clubbing, cyanosis , or edema. NEUROLOGICAL: Awake and alert. No obvious cranial nerve deficits. Motor and sensory grossly within normal limits. Nonfocal. Normal speech. PSYCHIATRIC: Appropriate mood and affect; insight and judgment normal. Procedures 04/22 - EGD with ERCP showed Gastritis, duodenitis, duodenal ulcer, multiple common bile duct stones removed with balloon Medications and IVs Active Medications Magnesium Hydroxide (Milk Of Tk Nettles) 30 ml ONCE ONCE PO Last administered on 04/24/17at 11:45; Admin Dose 30 ML; Start 04/24/17 at 12:00; Stop 04/24/17 at 12:01; Status DC Potassium Chloride (KCl) 40 meq ONCE ONCE PO Last administered on 04/24/17at 11: 45; Admin Dose 40 MEQ; Start 04/24/17 at 12:00; Stop 04/24/17 at 12:01; Status DC Senna/Docusate Sodium (Kacie-Colace) 2 tab BID PO Last administered on 04/24/17at 20:51; Admin Dose 2 TAB; Start 04/24/17 at 21:00 A/P Problem List: (1) Choledocholithiasis ICD Code: K80.50 - Calculus of bile duct without cholangitis or cholecystitis without obstruction Status: Resolved Assessment and Plan 76-year-old male with past medical history of HTN, HLD, hypothyroidism, BPH, paroxysmal atrial fibrillation, history of [place] in 2008 with stent x1, presented with RUQ pain, sent by [place] doctor Choledocholithiasis with Hyperbilirubinemia/Elevated LFTs: Tbili 9.3, AST 273, ALT 653, Alk Phos 394 -GI and GS consulted and following -04/21 CT abd/pelvis reviewed, shows multiple calcified gallstone and benign- appearing gallbladder; calcification uncinate process pancreas region common duct -04/21 MRCP showed multiple gallstone in the GB; some dilatation of the biliary tree as well as the CBD measuring 1.1cm, appears to be a small stone in the distal CBD -04/22 EGD with ERCP showed Gastritis, duodenitis, duodenal ulcer, multiple common bile duct stones removed with balloon -Continue on Protonix -Patient cleared for surgery by cardiology -GS planned for laparoscopic cholecystectomy today but procedure canceled secondary to persistently elevated LFTs. Started on clear liquid diet per GS. -Supportive treatment with IVF, pain control with IV morphine prn with bowel regimen -Continue to monitor LFTs. Repeat labs in am. Hold statin therapy. BPH: chronic -continue patient's Flomax HTN/CAD: chronic, controlled -continue patient's coreg, enalapril -monitor BP, adjust antihypertensives as needed -Cardiology consulted, cleared patient for surgery Hypothyroidism: chronic -continue patient's synthroid Constipation: (+)small BM last night -on kacie-colace bid -continue on bowel regimen Anemia -Hemoglobin dropped from 14 on admission to 9.1 today -iron studies ordered, obtain stool hemoccult -monitor CBC, am labs ordered DVT Prophylaxis: teds/SCDs, avoid chemoprophylaxis with upcoming procedure Julia Aguilar Apr 25, 2017 10:32
--- NOTE | 2017-04-25 13:51 | HHI.PR ---
cc: Kiko Correa MD Subjective Subjective Notes Ambulating in room Objective Vitals/I&O Vital Signs Date Time Temp Pulse Resp B/P (MAP) Pulse Ox O2 Delivery O2 Flow Rate FiO2 04/25/17 11:51 98.9 76 20 94/54 (67) 95 04/22/17 17:40 Nasal Cannula 2 Labs Laboratory Tests Test 04/25/17 06:30 Blood Urea Nitrogen 8 Creatinine 0.51 Random Glucose 85 Total Protein 5.1 Albumin 2.3 Calcium Level 8.6 Alkaline Phosphatase 248 Aspartate Amino Transf (AST/SGOT) 136 Alanine Aminotransferase (ALT/SGPT) 575 Total Bilirubin 4.1 Sodium Level 139 Potassium Level 3.8 Chloride Level 106 Carbon Dioxide Level 27.1 Anion Gap 6 Estimat Glomerular Filtration Rate 158 Radiology Last Impressions GI Procedure 04/22/17 0000 Signed Impressions: Service Date/Time: Saturday, April 22, 2017 16:57 - CONCLUSION: ERCP as above. Kwame Khan MD Abdomen/Pelvis CT 04/21/17 1034 Signed Impressions: Service Date/Time: Friday, April 21, 2017 11:36 - CONCLUSION: 1. Very large prostate, bladder 2. Multiple calcified gallstones and benign-appearing gallbladder 3. Calcification uncinate process pancreas region common duct. Common duct stone cannot be excluded. 4. There are no renal calculi identified Adam House MD FACR Cholangiopancreatography MRI 04/21/17 0000 Signed Impressions: Service Date/Time: Friday, April 21, 2017 19:06 - CONCLUSION: 1. Multiple gallstones in the gallbladder. 2. There is some dilatation of the biliary tree as well as the common bile duct measuring 1.1 cm in diameter. There appears to be a small stone in the distal common bile duct near the ampulla. 3. Nonspecific calcifications in the right lobe of the liver. 4. Benign-appearing left renal cysts. Steve Amato MD Cardiovascular: Regular Lungs: Clear Abdomen: Non-distended, Other (mild RUQ tenderness with palpation ) Extremities: No edema A/P Problem List: (1) Choledocholithiasis ICD Codes: K80.50 - Calculus of bile duct without cholangitis or cholecystitis without obstruction Status: Resolved (2) Cholecystitis ICD Codes: K81.9 - Cholecystitis, unspecified Status: Acute (3) Hypercalcemia ICD Codes: E83.52 - Hypercalcemia Status: Acute (4) A-fib ICD Codes: I48.91 - Unspecified atrial fibrillation (5) Coronary artery disease ICD Codes: I25.10 - Atherosclerotic heart disease of [place] coronary artery without angina pectoris Status: Chronic Assessment and Plan 76 year old male with choledocholithiasis -Continues to have elevated liver enzymes---trending down today but still elevated -Clear liquids -Has been cleared by Cardiology -Will plan for lap abhijit once liver enzymes trend down more -Discussed with patient Attending Statement The exam, history, and the medical decision-making described in the above note were completed with the assistance of the mid-level provider. I reviewed and agree with the findings presented. I attest that I had a [id number] encounter with the patient on the same day, and personally performed and documented my assessment and findings in the medical record. Acute cholecystitis Abdominal exam: RUQ pain better plan for lap abhijit this week Problem Qualifiers (1) A-fib: Qualified Codes: I48.2 - Chronic atrial fibrillation Heidi Lehman Apr 25, 2017 13:51 Kiko Correa MD Apr 28, 2017 06:56
--- NOTE | 2017-04-25 13:53 | HHI.GIFU ---
Subjective Remarks Pt resting in bed, only GI complaint at this time is right sided abdominal pain. He is planned to have a lap abhijit when LFTs improve. (Brooklyn Vela) Objective Vitals I&O Vital Signs Date Time Temp Pulse Resp B/P (MAP) Pulse Ox O2 Delivery O2 Flow Rate FiO2 04/25/17 11:51 98.9 76 20 94/54 (67) 95 04/25/17 07:35 98.7 84 21 130/72 (91) 95 04/25/17 06:50 18 04/25/17 04:06 97.2 82 16 132/72 (92) 98 04/25/17 00:19 98.9 79 18 118/76 (90) 98 04/24/17 20:24 99.5 85 18 124/70 (88) 98 04/24/17 15:56 99.6 86 23 143/73 (96) 94 I/O 04/24/17 04/24/17 04/24/17 04/25/17 04/25/17 04/25/17 07:00 15:00 23:00 07:00 15:00 23:00 Intake Total 100 ml 360 ml Balance 100 ml 360 ml Intake Oral 100 ml 360 ml # Voids 1 1 Laboratory Laboratory Tests Test 04/25/17 06:30 Blood Urea Nitrogen 8 Creatinine 0.51 Random Glucose 85 Total Protein 5.1 Albumin 2.3 Calcium Level 8.6 Alkaline Phosphatase 248 Aspartate Amino Transf (AST/SGOT) 136 Alanine Aminotransferase (ALT/SGPT) 575 Total Bilirubin 4.1 Sodium Level 139 Potassium Level 3.8 Chloride Level 106 Carbon Dioxide Level 27.1 Anion Gap 6 Estimat Glomerular Filtration Rate 158 Imaging Last Impressions GI Procedure 04/22/17 0000 Signed Impressions: Service Date/Time: Saturday, April 22, 2017 16:57 - CONCLUSION: ERCP as above. Kwame Khan MD Abdomen/Pelvis CT 04/21/17 1034 Signed Impressions: Service Date/Time: Friday, April 21, 2017 11:36 - CONCLUSION: 1. Very large prostate, bladder 2. Multiple calcified gallstones and benign-appearing gallbladder 3. Calcification uncinate process pancreas region common duct. Common duct stone cannot be excluded. 4. There are no renal calculi identified Adam House MD FACR Cholangiopancreatography MRI 04/21/17 0000 Signed Impressions: Service Date/Time: Friday, April 21, 2017 19:06 - CONCLUSION: 1. Multiple gallstones in the gallbladder. 2. There is some dilatation of the biliary tree as well as the common bile duct measuring 1.1 cm in diameter. There appears to be a small stone in the distal common bile duct near the ampulla. 3. Nonspecific calcifications in the right lobe of the liver. 4. Benign-appearing left renal cysts. Steve Amato MD Physical Exam HEENT: Normocephalic; atraumatic (+) icterus CHEST: Even/unlabored, diffuse wheezing CARDIAC: RRR ABDOMEN: Nontender, semi-firm, nontender, bowel sounds active EXTREMITIES: No clubbing, cyanosis, or edema. SKIN: (+) jaundice. SUPERVISOR: No focal deficits; alert and oriented times three. (Brooklyn Vela) Assessment and Plan Plan Assessment: - Transaminitis with abnormal CT findings- Pt complaining of RUQ pain for the past month, intermittent. Evaluated here for this complaint recently. US gallbladder (04/14) --> Cholelithiasis. No definite gallbladder wall thickening, pericholecystic fluid, or sonographic Mohan's sign. Pt was told pain was related to gallstones. LFTs were mildly elevated at this time, AST-84 and ALT-65. Returned to ER with complaints of pain now in right flank, pale colored stools, and dark urine. CT abdomen and pelvis W/O IV contrast (04/21) --> Multiple calcified gallstones and benign-appearing gallbladder. Calcification uncinate process pancreas r egion common duct. Common duct stone cannot be exclude. No renal calculi. Labs reveal transaminitis: AST-273 ALT-651 Alk phos-394 T bili-9.3. Denies any acid reflux, BRB in stool , nausea, vomiting, unintentional weight loss. Previous daily ETOH, drinking 2-3 beers a night, quit a month ago. Previous smoker, quit in 2008. Denies history of liver issues. Denies ever having EGD or colonoscopy 04/22/2017 elevated liver function tests, abnormal CT scan, status post ERCP (04/23) --> S/P EGD with ERCP yesterday --> Gastritis, duodenitis, multiple common bile duct stones removed with balloon, duodenal ulcer. Some elevation in LFTs today, could be secondary to edema and sphincterotomy site. Seen by GS who plans on lap abhijit once cleared by cardiology. If LFTs continue to remain elevated pt may need repeat ERCP for possible retained stone. Some drop in H/H today currently 12.7/36.8. No evidence of GIB. Pt has not had BM since procedure, denies nausea, vomiting. 04/24/17 awaiting lap abhijit, cleared by cardiology. LFTs remain elevated. denies abd pain today. (04/25) --> Pts only GI complaint at this time is continued right sided abdominal pain. Denies nausea, vomiting. Tolerating clear liquids. LFTs with significant improvement today. Currently T bili-4.1 AST-136 ALT-575 Alk phos-248. Pt is planned for lap abhijit by GS when LFTs improve some more. Plan - Lap abhijit per GS when LFTs improve - Monitor LFTs - Protonix - EGD biopsy pending - Supportive care Pt has been seen and examined by myself and Dr. Gutierrez and this note is written on his behalf (Brooklyn Vela) Physician Comments Patient seen and examined Agree with above Continue with current supportive care Monitor labs LFT elevation most likely secondary to an inflamed gallbladder We will defer further action to the general surgery service We will sign off (Froy Gutierrez MD) [place] Vela Apr 25, 2017 13:53 Froy Gutierrez MD Apr 25, 2017 18:01
[2017-04-25 17:05] LABS: BASOPHIL % 0.5 % (0.0-2.0); EOSINOPHIL # 0.2 TH/MM3 (0-0.4); EOSINOPHIL % 2.2 % (0.0-4.0); HEMATOCRIT 26.6 % (39.0-51.0); HEMOGLOBIN 9.1 GM/DL (13.0-17.0); LYMPH % 12.9 % (9.0-44.0); LYMPHOCYTE # 1.1 TH/MM3 (1.0-4.8); MEAN CELL VOLUME 89.2 FL (80.0-100.0); MEAN CORPUSCULAR HEMOGLOBIN 30.4 PG (27.0-34.0); MEAN CORPUSCULAR HGB CONC 34.1 % (32.0-36.0); MEAN PLATELET VOLUME 8.7 FL (7.0-11.0); MONO % 11.2 % (0.0-8.0); MONOCYTE # 0.9 TH/MM3 (0-0.9); NEUT % 73.2 % (16.0-70.0); PLATELET COUNT 188 TH/MM3 (150-450); RED BLOOD COUNT 2.98 MIL/MM3 (4.50-5.90); RED CELL DISTRIBUTION WIDTH 14.2 % (11.6-17.2); WHITE BLOOD COUNT 8.2 TH/MM3 (4.0-11.0)
[2017-04-25 17:13] LABS: INTERNATIONAL NORMALIZED RATIO 1.3 RATIO; PROTHROMBIN TIME - PATIENT 12.7 SEC (9.8-11.6)
[2017-04-25 17:27] LABS: % SATURATION IRON PROFILE 6.8 % (20-50); IRON (FE) 16 MCG/DL (65-175); TOTAL IRON BINDING CAPACITY 234 MCG/DL (250-450)
[2017-04-25 17:52] LABS: FOLATE 11.1 NG/ML (3.1-17.5)
[2017-04-25 18:03] LABS: RETIC % 1.7 % (0.4-3.0)
--- NOTE | 2017-04-25 18:43 | HHI.PR ---
Subjective Remarks Feeling ok Objective Vital Signs Date Time Temp Pulse Resp B/P (MAP) Pulse Ox O2 Delivery O2 Flow Rate FiO2 04/25/17 16:23 99.0 78 18 129/64 (85) 95 04/25/17 11:51 98.9 76 20 94/54 (67) 95 04/25/17 07:35 98.7 84 21 130/72 (91) 95 04/25/17 06:50 18 04/25/17 04:06 97.2 82 16 132/72 (92) 98 04/25/17 00:19 98.9 79 18 118/76 (90) 98 04/24/17 20:24 99.5 85 18 124/70 (88) 98 I/O 04/24/17 04/24/17 04/24/17 04/25/17 04/25/17 04/25/17 07:00 15:00 23:00 07:00 15:00 23:00 Intake Total 100 ml 360 ml Balance 100 ml 360 ml Intake Oral 100 ml 360 ml # Voids 1 1 Result Diagram: 04/25/17 1613 04/25/17 0630 Imaging Alert, fully oriented In bed Lungs: ventilated Heart: S1, S2 regular Abdomen: obese, no mass Ext: no edema Last Impressions GI Procedure 04/22/17 0000 Signed Impressions: Service Date/Time: Saturday, April 22, 2017 16:57 - CONCLUSION: ERCP as above. Kwame Khan MD Abdomen/Pelvis CT 04/21/17 1034 Signed Impressions: Service Date/Time: Friday, April 21, 2017 11:36 - CONCLUSION: 1. Very large prostate, bladder 2. Multiple calcified gallstones and benign-appearing gallbladder 3. Calcification uncinate process pancreas region common duct. Common duct stone cannot be excluded. 4. There are no renal calculi identified Aadm House MD FACR Cholangiopancreatography MRI 04/21/17 0000 Signed Impressions: Service Date/Time: Friday, April 21, 2017 19:06 - CONCLUSION: 1. Multiple gallstones in the gallbladder. 2. There is some dilatation of the biliary tree as well as the common bile duct measuring 1.1 cm in diameter. There appears to be a small stone in the distal common bile duct near the ampulla. 3. Nonspecific calcifications in the right lobe of the liver. 4. Benign-appearing left renal cysts. Steve Amato MD Current Medications Medications (Trade) Dose Ordered Sig/Paolo Route Start Time Stop Time Status Last Admin Sodium Chloride 1,000 ml @ 60 mls/hr [id number] IV 04/21/17 13:12 04/25/17 09:14 (NS Flush) 2 ml UNSCH PRN IV FLUSH 04/21/17 13:15 (NS Flush) 2 ml BID IV FLUSH 04/21/17 21:00 04/23/17 20:16 (Zofran Inj) 4 mg Q6H PRN IVP 04/21/17 13:15 (Narcan Inj) 0.4 mg UNSCH PRN IV PUSH 04/21/17 13:15 (Milk Of Magnesia Liq) 30 ml Q12H PRN PO 04/21/17 13:15 (Senokot) 17.2 mg Q12H PRN PO 04/21/17 13:15 (Dulcolax Supp) 10 mg DAILY PRN RECTAL 04/21/17 13:15 (Lactulose Liq) 30 ml DAILY PRN PO 04/21/17 13:15 (Coreg) 3.125 mg BID PO 04/21/17 21:00 04/25/17 09:12 (Vasotec) 2.5 mg DAILY PO 04/22/17 09:00 04/25/17 09:12 (Synthroid) 25 mcg DAILY@0600 PO 04/22/17 06:00 04/24/17 07:49 (Flomax) 0.4 mg DAILY PO 04/22/17 09:00 04/25/17 09:12 (Pravachol) 80 mg HS PO 04/21/17 21:00 Future Hold 04/24/17 20:51 (Morphine Inj) 2 mg Q3H PRN IV PUSH 04/22/17 11:00 04/25/17 16:38 (Protonix) 40 mg Q12HR PO 04/23/17 21:00 04/25/17 09:12 Cefazolin Sodium/ Dextrose 50 ml @ 100 mls/hr ELECTRIC LOCOMOTIVE FIRER/FIREMAN IV 04/23/17 16:30 04/27/17 16:29 Lactated Ringer's 1,000 ml @ 30 mls/hr Q24H PRN IV 04/24/17 02:00 04/27/17 01:59 (Betadine 5% Antisepsis Kit) 1 applic ELECTRIC LOCOMOTIVE FIRER/FIREMAN PRN EACH NARE 04/24/17 02:00 04/27/17 01:59 (Chlorhexidine 2% Cloth) 3 pack ELECTRIC LOCOMOTIVE FIRER/FIREMAN PRN TOPICAL 04/24/17 02:00 04/27/17 01:59 (Kacie-Colace) 2 tab BID PO 04/24/17 21:00 04/24/17 20:51 Assessment and Plan Problem List: (1) A-fib ICD Codes: I48.91 - Unspecified atrial fibrillation Plan: Stable Regular rhythm Ok for surgery I will be available on a PRN basis (2) Near syncope ICD Codes: R55 - Syncope and collapse Plan: No new episode reported Problem Qualifiers (1) A-fib: Qualified Codes: I48.2 - Chronic atrial fibrillation Fabricio Altamirano MD Apr 25, 2017 18:43
[2017-04-25 21:37] LABS: FERRITIN 452 NG/ML (26-388)
[2017-04-26 03:14] VITALS: BP 123/64; PULSE 76; RESP 12; TEMP 98; O2SAT 96
[2017-04-26] MEDS: LEVOTHYROXINE SODIUM 25 MCG TAB PO SCH (04:52)
[2017-04-26] MEDS: MORPHINE SULFATE 2 MG/ML INJ IV PUSH PRN ×3 (04:52→23:05)
[2017-04-26 06:20] LABS: AUTOMATED NEUTROPHIL # 5.5 TH/MM3 (1.8-7.7); BASOPHIL % 0.6 % (0.0-2.0); EOSINOPHIL # 0.2 TH/MM3 (0-0.4); EOSINOPHIL % 2.7 % (0.0-4.0); HEMATOCRIT 24.8 % (39.0-51.0); HEMOGLOBIN 8.6 GM/DL (13.0-17.0); LYMPH % 12.6 % (9.0-44.0); LYMPHOCYTE # 0.9 TH/MM3 (1.0-4.8); MEAN CELL VOLUME 89.2 FL (80.0-100.0); MEAN CORPUSCULAR HEMOGLOBIN 30.8 PG (27.0-34.0); MEAN CORPUSCULAR HGB CONC 34.5 % (32.0-36.0); MEAN PLATELET VOLUME 8.9 FL (7.0-11.0); MONO % 11.6 % (0.0-8.0); MONOCYTE # 0.9 TH/MM3 (0-0.9); NEUT % 72.5 % (16.0-70.0); PLATELET COUNT 192 TH/MM3 (150-450); RED BLOOD COUNT 2.78 MIL/MM3 (4.50-5.90); RED CELL DISTRIBUTION WIDTH 14.7 % (11.6-17.2); WHITE BLOOD COUNT 7.6 TH/MM3 (4.0-11.0)
[2017-04-26 06:32] LABS: INTERNATIONAL NORMALIZED RATIO 1.3 RATIO; PROTHROMBIN TIME - PATIENT 12.7 SEC (9.8-11.6)
[2017-04-26 06:53] LABS: ALBUMIN 2.2 GM/DL (3.4-5.0); AST (GOT) 52 U/L (15-37); BICARBONATE 28.6 MEQ/L (21.0-32.0); BLOOD UREA NITROGEN 8 MG/DL (7-18); CALCIUM 8.9 MG/DL (8.5-10.1); CHLORIDE 105 MEQ/L (98-107); CREATININE 0.53 MG/DL (0.60-1.30); GLOMERULAR FILTRATION RATE 152 ML/MIN (>89); GLUCOSE,RANDOM 86 MG/DL (74-106); SODIUM (NA) 140 MEQ/L (136-145)
[2017-04-26 06:54] LABS: ALT (GPT) 391 U/L (12-78)
[2017-04-26 06:57] LABS: ALKALINE PHOSPHATASE 208 U/L (45-117); TOTAL PROTEIN 5.1 GM/DL (6.4-8.2)
[2017-04-26 08:24] VITALS: BP 134/72; PULSE 81; RESP 18; TEMP 98.4; O2SAT 94
[2017-04-26] MEDS: SODIUM CHLORIDE 0.9% FLUSH 10 ML FLUSH IV FLUSH SCH ×2 (09:00→21:00)
[2017-04-26] MEDS: DOCUSATE SODIUM 50 MG/SENNA 8.6 MG TAB PO SCH ×2 (09:00→23:00)
[2017-04-26] MEDS: CARVEDILOL 3.125 MG TAB PO SCH ×2 (09:30→22:59)
[2017-04-26] MEDS: PANTOPRAZOLE SOD 40 MG DELAYED RELEASE TAB PO SCH ×2 (09:30→22:59)
[2017-04-26] MEDS: ENALAPRIL MALEATE 2.5 MG TAB PO SCH (09:30)
[2017-04-26] MEDS: TAMSULOSIN HCL 0.4 MG CAP PO SCH (09:30)
[2017-04-26] MEDS: SODIUM CHLOR 0.9% 1000 ML INJ 1,000 ML IV SCH ×2 (09:31→13:43)
--- NOTE | 2017-04-26 11:50 | HHI.PR ---
Subjective Remarks Follow-up on patient with choledocholithiasis. Patient seen and examined. Patient reports persistent right upper quadrant pain well-controlled with current pain regimen. Denies any fever or chills. Denies any nausea or vomiting. Denies any chest pain or shortness of breath. Discussed with Maite JENSEN, patient scheduled for surgery with Dr. Duran around 2:00 today. Continue NPO. Objective Vitals Vital Signs Date Time Temp Pulse Resp B/P (MAP) Pulse Ox O2 Delivery O2 Flow Rate FiO2 04/26/17 08:24 98.4 81 18 134/72 (92) 94 04/26/17 03:14 98.0 76 12 123/64 (83) 96 04/25/17 23:36 98.0 80 16 122/69 (86) 96 04/25/17 19:17 98.5 81 14 118/66 (83) 96 04/25/17 16:23 99.0 78 18 129/64 (85) 95 04/25/17 11:51 98.9 76 20 94/54 (67) 95 I/O 04/25/17 04/25/17 04/25/17 04/26/17 04/26/17 04/26/17 07:00 15:00 23:00 07:00 15:00 23:00 Intake Total 100 ml 360 ml 500 ml Balance 100 ml 360 ml 500 ml Intake Oral 100 ml 360 ml 500 ml # Voids 1 4 Result Diagram: 04/26/17 0542 04/26/17 0542 Imaging Last Impressions GI Procedure 04/22/17 0000 Signed Impressions: Service Date/Time: Saturday, April 22, 2017 16:57 - CONCLUSION: ERCP as above. Kwame Khan MD Abdomen/Pelvis CT 04/21/17 1034 Signed Impressions: Service Date/Time: Friday, April 21, 2017 11:36 - CONCLUSION: 1. Very large prostate, bladder 2. Multiple calcified gallstones and benign-appearing gallbladder 3. Calcification uncinate process pancreas region common duct. Common duct stone cannot be excluded. 4. There are no renal calculi identified Adam House MD FACR Cholangiopancreatography MRI 04/21/17 0000 Signed Impressions: Service Date/Time: Friday, April 21, 2017 19:06 - CONCLUSION: 1. Multiple gallstones in the gallbladder. 2. There is some dilatation of the biliary tree as well as the common bile duct measuring 1.1 cm in diameter. There appears to be a small stone in the distal common bile duct near the ampulla. 3. Nonspecific calcifications in the right lobe of the liver. 4. Benign-appearing left renal cysts. Steve Amato MD Objective Remarks GENERAL: Well-nourished, well-developed pleasant male patient in NAD. Hoarse/soft voice. Awake and alert. Sitting up in bed. SKIN: Warm and dry. HEENT: Normocephalic. Atraumatic. EOMI. Bilateral sclera slightly icteric. Mucous membranes pink and moist. CARDIOVASCULAR: Regular rate and rhythm. S1, S2 noted. No murmur appreciated. RESPIRATORY: Nonlabored. Clear to auscultation. Breath sounds equal bilaterally. GASTROINTESTINAL: Abdomen soft, nondistended, mild RUQ tenderness to palpation. Normoactive bowel sounds x4. MUSCULOSKELETAL: No obvious deformities. Extremities without clubbing, cyanosis , or edema. NEUROLOGICAL: Awake and alert. No obvious cranial nerve deficits. Motor and sensory grossly within normal limits. Nonfocal. Normal speech. PSYCHIATRIC: Appropriate mood and affect; insight and judgment normal. Procedures 04/22 - EGD with ERCP showed Gastritis, duodenitis, duodenal ulcer, multiple common bile duct stones removed with balloon Medications and IVs Current Medications Medications (Trade) Dose Ordered Sig/Paolo Route Start Time Stop Time Status Last Admin Sodium Chloride 1,000 ml @ 60 mls/hr [id number] IV 04/21/17 13:12 04/26/17 09:31 (NS Flush) 2 ml UNSCH PRN IV FLUSH 04/21/17 13:15 04/25/17 23:53 (NS Flush) 2 ml BID IV FLUSH 04/21/17 21:00 04/23/17 20:16 (Zofran Inj) 4 mg Q6H PRN IVP 04/21/17 13:15 (Narcan Inj) 0.4 mg UNSCH PRN IV PUSH 04/21/17 13:15 (Milk Of Magnesia Liq) 30 ml Q12H PRN PO 04/21/17 13:15 (Senokot) 17.2 mg Q12H PRN PO 04/21/17 13:15 (Dulcolax Supp) 10 mg DAILY PRN RECTAL 04/21/17 13:15 (Lactulose Liq) 30 ml DAILY PRN PO 04/21/17 13:15 (Coreg) 3.125 mg BID PO 04/21/17 21:00 04/26/17 09:30 (Vasotec) 2.5 mg DAILY PO 04/22/17 09:00 04/26/17 09:30 (Synthroid) 25 mcg DAILY@0600 PO 04/22/17 06:00 04/26/17 04:52 (Flomax) 0.4 mg DAILY PO 04/22/17 09:00 04/26/17 09:30 (Pravachol) 80 mg HS PO 04/21/17 21:00 Future Hold 04/24/17 20:51 (Morphine Inj) 2 mg Q3H PRN IV PUSH 04/22/17 11:00 04/26/17 09:32 (Protonix) 40 mg Q12HR PO 04/23/17 21:00 04/26/17 09:30 Cefazolin Sodium/ Dextrose 50 ml @ 100 mls/hr VASC TECH IV 04/23/17 16:30 04/27/17 16:29 Lactated Ringer's 1,000 ml @ 30 mls/hr Q24H PRN IV 04/24/17 02:00 04/27/17 01:59 (Betadine 5% Antisepsis Kit) 1 applic VASC TECH PRN EACH NARE 04/24/17 02:00 04/27/17 01:59 (Chlorhexidine 2% Cloth) 3 pack VASC TECH PRN TOPICAL 04/24/17 02:00 04/27/17 01:59 (Kacie-Colace) 2 tab BID PO 04/24/17 21:00 04/25/17 20:32 A/P Problem List: (1) Choledocholithiasis ICD Code: K80.50 - Calculus of bile duct without cholangitis or cholecystitis without obstruction Status: Resolved Assessment and Plan 76-year-old male with past medical history of HTN, HLD, hypothyroidism, BPH, paroxysmal atrial fibrillation, history of [place] in 2008 with stent x1, presented with RUQ pain, sent by [place] doctor Choledocholithiasis with Hyperbilirubinemia/Elevated LFTs: Tbili 9.3, AST 273, ALT 653, Alk Phos 394 -GI and GS consulted and following -04/21 CT abd/pelvis reviewed, shows multiple calcified gallstone and benign- appearing gallbladder; calcification uncinate process pancreas region common duct -04/21 MRCP showed multiple gallstone in the GB; some dilatation of the biliary tree as well as the CBD measuring 1.1cm, appears to be a small stone in the distal CBD -04/22 EGD with ERCP showed Gastritis, duodenitis, duodenal ulcer, multiple common bile duct stones removed with balloon -Continue on Protonix -Patient cleared for surgery by cardiology -LFTs much improved. GS planned for laparoscopic cholecystectomy today. Continue NPO. -Supportive treatment with IVF, pain control with IV morphine prn with bowel regimen BPH: chronic -continue patient's Flomax HTN/CAD: chronic, controlled -continue patient's coreg, enalapril -monitor BP, adjust antihypertensives as needed -Cardiology consulted, cleared patient for surgery Hypothyroidism: chronic -continue patient's synthroid Constipation: (+)small BM last night -on kacie-colace bid -continue on bowel regimen Anemia -Hemoglobin dropped from 14 on admission to 8.6 -iron studies: iron 16, TIBC 234, %sat 6.8, ferritin 452, folate 11.1, B12 > 2000 -LDH 168, retic count 1.7, haptoglobin 258 -obtain stool hemoccult -monitor CBC, am labs ordered DVT Prophylaxis: teds/SCDs, avoid chemoprophylaxis with upcoming procedure Julia Aguilar Apr 26, 2017 11:50
[2017-04-26] MEDS ORDERED: PHENYLEPH/NS 1000 MCG/10 ML SYR IV ONE (12:00)
[2017-04-26] MEDS ORDERED: ROCURONIUM INJ 50 MG/5 ML SYRINGE IV PUSH ONE (12:00)
[2017-04-26] MEDS ORDERED: ONDANSETRON HCL 4 MG/2 ML VIAL IV ONE (12:00)
[2017-04-26] MEDS ORDERED: PROPOFOL 200 MG/20 ML AMP IV ONE (12:00)
[2017-04-26] MEDS ORDERED: DEXAMETHASONE SOD PHOS 4 MG/ML VIAL IV ONE (12:00)
[2017-04-26] MEDS ORDERED: GLYCOPYRROLATE 1 MG/5 ML SYRINGE IV PUSH ONE (12:00)
[2017-04-26] MEDS ORDERED: NEOSTIGMINE 5 MG/5 ML SYRINGE IV PUSH ONE (12:00)
[2017-04-26] MEDS ORDERED: LACTATED RINGER'S 1000 ML INJ 1,000 ML IV ONE (12:00)
[2017-04-26] MEDS ORDERED: LIDOCAINE HCL 1% PF 5 ML SYRINGE OTHER ONE (12:00)
[2017-04-26 12:10] VITALS: BP 132/69; PULSE 75; RESP 18; TEMP 98; O2SAT 95
[2017-04-26] MEDS ORDERED: SODIUM CHLORIDE 0.9% INJ 100 ML ONE (15:43)
[2017-04-26] MEDS ORDERED: BUPIVACAINE/EPINEPHRINE 0.5% PF 30 ML VIAL ONE (15:43)
[2017-04-26] MEDS ORDERED: ceFAZolin INJ 1,000 MG VIAL ONE (15:43)
[2017-04-26] MEDS ORDERED: DO NOT ADM ANY ANTICOAGULANT DRUGS PRN (17:55)
--- NOTE | 2017-04-26 17:55 | HHI.PR ---
cc: Nicolás Rendon MD Immediate Post Op Note Procedure Date: Apr 26, 2017 Pre Op Diagnosis: (1) Coronary artery disease (2) Choledocholithiasis (3) Cholecystitis (4) A-fib Post Op Diagnosis: (1) Cholecystitis (2) A-fib (3) Coronary artery disease (4) Gallbladder calculus Surgeon: Nicolás Rendon Header Setup Operator(s): Refer to our records Procedure: Laparoscopic cholecystectomy with placement of ANALI Findings: Very small micro-gallbladder with stones and acute chronic inflammation Very inflamed gallbladder and liver Complications: None Specimen(s) removed: Gallbladder Estimated blood loss: 50 cc Anesthesia: General Drains: ANALI IVF Patient to: PACU Patient Condition: Good Implant/Devices: SEE IMPLANT LOG (if applicable) Date/Time of Procedure: SEE SURGICAL CARE RECORD Nicolás Rendon MD Apr 26, 2017 17:55
[2017-04-26] MEDS ORDERED: MIDAZOLAM HCL 2 MG/2 ML VIAL ONE (18:01)
[2017-04-26] MEDS ORDERED: *morphine SULFATE 10 MG/ML PERIprocedure ONLY ONE (18:21)
[2017-04-26 20:00] VITALS: BP 120/69; PULSE 81; RESP 18; TEMP 97.5; O2SAT 94
[2017-04-27] VITALS: BP 125/70; PULSE 77; RESP 20; TEMP 96.6; O2SAT 96
[2017-04-27] MEDS: MORPHINE SULFATE 2 MG/ML INJ IV PUSH PRN ×2 (02:39→05:53)
[2017-04-27 03:59] VITALS: BP 126/70; PULSE 73; RESP 20; TEMP 97; O2SAT 97
[2017-04-27] MEDS: LEVOTHYROXINE SODIUM 25 MCG TAB PO SCH (05:53)
[2017-04-27] MEDS: SODIUM CHLOR 0.9% 1000 ML INJ 1,000 ML IV SCH (06:23)
[2017-04-27 06:31] LABS: INTERNATIONAL NORMALIZED RATIO 1.2 RATIO; PROTHROMBIN TIME - PATIENT 12.4 SEC (9.8-11.6)
[2017-04-27 06:37] LABS: BASOPHIL % 0.2 % (0.0-2.0); HEMATOCRIT 27.2 % (39.0-51.0); HEMOGLOBIN 9.1 GM/DL (13.0-17.0); LYMPH % 4.8 % (9.0-44.0); LYMPHOCYTE # 0.6 TH/MM3 (1.0-4.8); MEAN CELL VOLUME 89.6 FL (80.0-100.0); MEAN CORPUSCULAR HEMOGLOBIN 29.9 PG (27.0-34.0); MEAN CORPUSCULAR HGB CONC 33.4 % (32.0-36.0); MEAN PLATELET VOLUME 8.8 FL (7.0-11.0); MONO % 8.6 % (0.0-8.0); NEUT % 86.4 % (16.0-70.0); PLATELET COUNT 294 TH/MM3 (150-450); RED BLOOD COUNT 3.03 MIL/MM3 (4.50-5.90); RED CELL DISTRIBUTION WIDTH 14.2 % (11.6-17.2); WHITE BLOOD COUNT 11.6 TH/MM3 (4.0-11.0)
[2017-04-27 06:46] LABS: ALBUMIN 2.3 GM/DL (3.4-5.0); BICARBONATE 24.2 MEQ/L (21.0-32.0); BLOOD UREA NITROGEN 11 MG/DL (7-18); CALCIUM 8.8 MG/DL (8.5-10.1); CHLORIDE 104 MEQ/L (98-107); GLUCOSE,RANDOM 113 MG/DL (74-106); SODIUM (NA) 138 MEQ/L (136-145)
[2017-04-27 06:47] LABS: AST (GOT) 89 U/L (15-37); CREATININE 0.57 MG/DL (0.60-1.30); GLOMERULAR FILTRATION RATE 139 ML/MIN (>89)
[2017-04-27 06:50] LABS: ALKALINE PHOSPHATASE 201 U/L (45-117); ALT (GPT) 346 U/L (12-78); TOTAL BILIRUBIN ADULT 2.6 MG/DL (0.2-1.0); TOTAL PROTEIN 5.5 GM/DL (6.4-8.2)
[2017-04-27 08:00] VITALS: BP 149/72; PULSE 75; RESP 19; TEMP 96.9; O2SAT 97
--- NOTE | 2017-04-27 08:33 | MP ---
cc: YAMILET RENDON M.D. DATE OF PROCEDURE 04/26/2017 PREOPERATIVE DIAGNOSIS Cholelithiasis, cholecystitis. POSTOPERATIVE DIAGNOSIS Cholelithiasis, gangrenous cholecystitis with micro gallbladder. PROCEDURE Laparoscopic cholecystectomy with placement of drain. ANESTHESIA General. SURGEON Dr. Rendon INDICATIONS This is a pleasant 76-year-old gentleman who came into the hospital. He had some common duct stones. He had an ERCP, cardiac clearance and then was sent for surgery. PROCEDURE The patient was taken to the operating room, placed on the operating room table. After anesthesia his abdomen was prepped with Betadine solution. Time-out was done. He was given preoperative antibiotics. I make an incision just below the umbilicus. The Veress needle is inserted. The saline load test is performed. The abdomen is insufflated to 15 mmHg. Two other working ports are placed, one below the xyphoid, one in between the two previously placed ports. We are able to grasp the gallbladder superior and laterally. However, we cannot visualize the structures because of some adhesions. We then place a fourth port in the right lower quadrant. With this we are able dissect around the gallbladder. It is noted that the gallbladder is very inflamed and the top of the gallbladder simply tears because of the inflammatory response, a large stones and bile there which are removed and evacuated. We then dissect down in somewhat of a retrograde fashion because of the amount of inflammation near the common duct. It becomes evident that he has a very, very small gallbladder closely associated with the common duct. We are able to gently tease this away using a Kitner device and hydrodissection to where we can completely free this from the common duct. The cystic duct is identified as well as the cystic artery and again the gallbladder is over 2 cm in size. We then are able to place a hemoclip on the cystic artery and separate this. The cystic duct is somewhat dilated and for this we reason I use a PDS Endo-Tie to tie down on the cystic stump and then this is amputated. The gallbladder and stones that retrieved are placed in the EndoCatch and pulled out through the umbilical incision. We then check our dissection site. We see can see the common duct clearly. There is no injury to it. We can see the cystic duct stump which is hemostatic and without biliary leakage of the cystic artery. There appeared to be a remnant of the posterior wall of the gallbladder along the common duct which is left intact. No bile was spilling; it was just the mucosa. I did not feel it was safe to dissect this off the common duct. For this reason, because of the amount of inflammatory response, we then place a #10 ANALI into the gallbladder fossa after placing some Surgicel powder for hemostasis along the liver edge. No other gross abnormalities seen along the liver edge. We then remove all three trocars. The ANALI is then placed through the right lower quadrant port site and sutured to the skin with 3-0 nylon. The ports are removed. The 10-mm port site at the umbilicus was closed with 0 Vicryl and the skin is closed with 4-0 Vicryl at the three other sites. Yamilet Rendon MD JDB/SSB /5:41 PM /8:02 AM FOX
[2017-04-27] MEDS: TAMSULOSIN HCL 0.4 MG CAP PO SCH (08:36)
[2017-04-27] MEDS: PANTOPRAZOLE SOD 40 MG DELAYED RELEASE TAB PO SCH (08:36)
[2017-04-27] MEDS: SODIUM CHLORIDE 0.9% FLUSH 10 ML FLUSH IV FLUSH SCH (08:36)
[2017-04-27] MEDS: DOCUSATE SODIUM 50 MG/SENNA 8.6 MG TAB PO SCH (08:36)
[2017-04-27] MEDS: CARVEDILOL 3.125 MG TAB PO SCH (08:36)
[2017-04-27] MEDS: ENALAPRIL MALEATE 2.5 MG TAB PO SCH (09:32)
[2017-04-27] MEDS ORDERED: ACETAMINOPHEN/HYDROcodone 325 MG/5 MG TAB PO PRN ×2 (10:00)
--- NOTE | 2017-04-27 10:39 | HHI.DS ---
Discharge Summary Admission Date Apr 23, 2017 at 13:03 Discharge Date: Apr 27, 2017 Admitting Diagnosis CHOLELITHIASIS WITH OBSTRUCTIVE HEPATITIS PATTERN (1) Choledocholithiasis ICD Code: K80.50 - Calculus of bile duct without cholangitis or cholecystitis without obstruction Status: Resolved Procedures 04/22 - EGD with ERCP showed Gastritis, duodenitis, duodenal ulcer, multiple common bile duct stones removed with balloon Cholecystectomy Brief History - From Admission Patient is a 76-year-old male with past medical history of hyperlipidemia, hypertension, hypothyroidism, BPH, paroxysmal atrial fibrillation, history of [place] in 2008 with one stent placed presented to the emergency room upon the request of his PA doctor. He was here on April 16 with with symptoms of right upper quadrant pain and was discharged home on pain medication and was told to follow-up at the PA. He was instructed to follow-up with his aerospace project engineer for cardiac clearance for possible cholecystectomy as an outpatient. However since discharge patient has noted that his stools were very breen and his urine got very dark. This happened on Monday however he decided to wait a few more days, drink lots of water and stay hydrated to see if it would go away. However this morning he called the PA and told them what was happening and they instructed him to come to the emergency room. He has been experiencing right upper quadrant pain which he rates a 4-5 out of 10 however he has been taking the hydrocodone and it has been helping. Currently his pain is a 1 out of 10 since he got the morphine. He denies any nausea or vomiting, he is denies any fevers or chills. He does note he feels cold all the time. He denies any sore throat, runny nose, any bladder problems. He denies any palpitations or chest pain. He states that a month before his heart attack in 2008 he did have a bout of gallbladder bladder pain. At the time he was given pain medication to treat it. CBC/BMP: 04/27/17 0603 04/27/17 0603 Significant Findings Laboratory Tests Test 04/25/17 06:30 04/25/17 16:13 04/26/17 05:42 04/27/17 06:03 Creatinine 0.51 MG/DL (0.60-1.30) 0.53 MG/DL (0.60-1.30) 0.57 MG/DL (0.60-1.30) Total Protein 5.1 GM/DL (6.4-8.2) 5.1 GM/DL (6.4-8.2) 5.5 GM/DL (6.4-8.2) Albumin 2.3 GM/DL (3.4-5.0) 2.2 GM/DL (3.4-5.0) 2.3 GM/DL (3.4-5.0) Alkaline Phosphatase 248 U/L (45-117) 208 U/L (45-117) 201 U/L (45-117) Aspartate Amino Transf (AST/SGOT) 136 U/L (15-37) 52 U/L (15-37) 89 U/L (15-37) Alanine Aminotransferase (ALT/SGPT) 575 U/L (12-78) 391 U/L (12-78) 346 U/L (12-78) Total Bilirubin 4.1 MG/DL (0.2-1.0) 3.0 MG/DL (0.2-1.0) 2.6 MG/DL (0.2-1.0) Red Blood Count 2.98 MIL/MM3 (4.50-5.90) 2.78 MIL/MM3 (4.50-5.90) 3.03 MIL/MM3 (4.50-5.90) Hemoglobin 9.1 GM/DL (13.0-17.0) 8.6 GM/DL (13.0-17.0) 9.1 GM/DL (13.0-17.0) Hematocrit 26.6 % (39.0-51.0) 24.8 % (39.0-51.0) 27.2 % (39.0-51.0) Neutrophils (%) (Auto) 73.2 % (16.0-70.0) 72.5 % (16.0-70.0) 86.4 % (16.0-70.0) Monocytes (%) (Auto) 11.2 % (0.0-8.0) 11.6 % (0.0-8.0) 8.6 % (0.0-8.0) Haptoglobin 258 MG/DL (30-200) Prothrombin Time 12.7 SEC (9.8-11.6) 12.7 SEC (9.8-11.6) 12.4 SEC (9.8-11.6) Iron Level 16 MCG/DL (65-175) Total Iron Binding Capacity 234 MCG/DL (250-450) Percent Iron Saturation 6.8 % (20-50) Ferritin 452 NG/ML (26-388) Vitamin B12 Level GREATER THAN 2000 PG/ML Lymphocytes # (Auto) 0.9 TH/MM3 (1.0-4.8) 0.6 TH/MM3 (1.0-4.8) White Blood Count 11.6 TH/MM3 (4.0-11.0) Lymphocytes (%) (Auto) 4.8 % (9.0-44.0) Neutrophils # (Auto) 10.0 TH/MM3 (1.8-7.7) Monocytes # (Auto) 1.0 TH/MM3 (0-0.9) Random Glucose 113 MG/DL (74-106) PE at Discharge GENERAL: Well-nourished, well-developed pleasant male patient in NAD. Hoarse/soft voice. Awake and alert. Sitting up in bed. SKIN: Warm and dry. HEENT: Normocephalic. Atraumatic. EOMI. Bilateral sclera slightly icteric. Mucous membranes pink and moist. CARDIOVASCULAR: Regular rate and rhythm. S1, S2 noted. No murmur appreciated. RESPIRATORY: Nonlabored. Clear to auscultation. Breath sounds equal bilaterally. GASTROINTESTINAL: Abdomen soft, nondistended, mild RUQ tenderness to palpation. Normoactive bowel sounds x4. MUSCULOSKELETAL: No obvious deformities. Extremities without clubbing, cyanosis , or edema. NEUROLOGICAL: Awake and alert. No obvious cranial nerve deficits. Motor and sensory grossly within normal limits. Nonfocal. Normal speech. PSYCHIATRIC: Appropriate mood and affect; insight and judgment normal. Pt update on day of discharge The patient said that his pain was controlled. He was about to try a diet. He spoke with surgery earlier. He was anxious to go home. He had questions which were answered. Discussed with nursing. Hospital Course Choledocholithiasis with hyperbilirubinemia/ elevated LFTs GI and GS were consulted. 04/21 CT abd/pelvis showed multiple calcified gallstone and benign-appearing gallbladder; calcification uncinate process pancreas region common duct. 04/21 MRCP showed multiple gallstones in the GB; some dilatation of the biliary tree as well as the CBD measuring 1.1cm, appears to be a small stone in the distal CBD. 04/22 EGD with ERCP showed gastritis, duodenitis, duodenal ulcer, multiple common bile duct stones removed with balloon. He was continued on Protonix. The patient was cleared for surgery by cardiology. S/p laparoscopic cholecystectomy 04/26. He received supportive treatment with IVFs, pain control with a bowel regimen. He will follow up with surgery as an outpt. He will have a repeat CMP in 3-5 days. HTN/CAD/CHF He was continued on his cardiac regimen. Cardiology was consulted and cleared the patient for surgery. Anemia Iron studies: iron 16, TIBC 234, % sat 6.8, ferritin 452, folate 11.1, B12 >2000 , LDH 168, retic count 1.7, haptoglobin 258. He will have a repeat CBC in 3-5 days and will follow up with surgery. Pt Condition on Discharge: Stable Discharge Disposition: Discharge Home Discharge Time: > 30 minutes Discharge Instructions Follow up Referrals: PCP Follow-up - 1 Week PCP Follow-up Surgical - 05/04/17 with Nicolás Rendon MD Appt set for May 04 at 8:40AM Surgical New Orders: CBC NO DIFF - 3-5 Days COMP MET PROF (CMP) - 3-5 Days New Medications: Pantoprazole (Pantoprazole) 40 Mg Tab 40 MG PO DAILY for Reflux, #30 TAB Changed Medications: Hydrocodone/Acetaminophen (Hydrocodone-Acetamin 5-325 mg) 5 Mg-325 Mg Tablet 1 TAB PO Q6HR PRN for PAIN SCALE 1 TO 10, #20 TAB (Changed from: 15) Continued Medications: Acetaminophen (Tylenol) 325 Mg Tab 325 MG PO Q6H PRN for PAIN 1 TO 10 AND/OR AGITATION, TAB 0 Refills Alfuzosin ER 24 HR (Alfuzosin ER 24 HR) 10 Mg Tab 10 MG PO DAILY for BPH, #30 TAB 0 Refills Carvedilol (Carvedilol) 3.125 Mg Tab 3.125 MG PO BID, #60 TAB 0 Refills Enalapril (Enalapril) 2.5 Mg Tab 2.5 MG PO DAILY, #30 TAB 0 Refills Levothyroxine (Levothyroxine) 25 Mcg Tab 25 MCG PO DAILY for Thyroid, #30 TAB 0 Refills Lisinopril (Lisinopril) 5 Mg Tab 5 MG PO DAILY for CMP for 30 Days, #30 TAB Simvastatin (Simvastatin) 40 Mg Tab 40 MG PO HS for Cholesterol Management, #30 TAB 0 Refills Leonidas Meza DO Apr 27, 2017 10:39
[2017-04-27 12:00] VITALS: BP 94/51; PULSE 77; RESP 17; TEMP 97.5; O2SAT 96
[2017-04-27] MEDS ORDERED: HYDR-3516 PO (13:08)
[2017-04-27] MEDS ORDERED: PANT40TA3 PO (13:08)
--- NOTE | 2017-04-27 13:08 | HHI.PR ---
cc: Nicolás Rendon MD Subjective Subjective Notes DAILY PROGRESS NOTE FOR SURGICAL ATTENDING, DR. NICOLÁS RENDON Ambulating in room No complaints Tired of marian Objective Vitals/I&O Vital Signs Date Time Temp Pulse Resp B/P (MAP) Pulse Ox O2 Delivery O2 Flow Rate FiO2 04/27/17 08:00 96.9 75 19 149/72 (97) 97 04/26/17 20:15 Nasal Cannula 2 Labs Laboratory Tests Test 04/27/17 06:03 White Blood Count 11.6 Red Blood Count 3.03 Hemoglobin 9.1 Hematocrit 27.2 Mean Corpuscular Volume 89.6 Mean Corpuscular Hemoglobin 29.9 Mean Corpuscular Hemoglobin Concent 33.4 Red Cell Distribution Width 14.2 Platelet Count 294 Mean Platelet Volume 8.8 Neutrophils (%) (Auto) 86.4 Lymphocytes (%) (Auto) 4.8 Monocytes (%) (Auto) 8.6 Eosinophils (%) (Auto) 0.0 Basophils (%) (Auto) 0.2 Neutrophils # (Auto) 10.0 Lymphocytes # (Auto) 0.6 Monocytes # (Auto) 1.0 Eosinophils # (Auto) 0.0 Basophils # (Auto) 0.0 CBC Comment DIFF FINAL Differential Comment Prothrombin Time 12.4 Prothromb Time International Ratio 1.2 Blood Urea Nitrogen 11 Creatinine 0.57 Random Glucose 113 Total Protein 5.5 Albumin 2.3 Calcium Level 8.8 Alkaline Phosphatase 201 Aspartate Amino Transf (AST/SGOT) 89 Alanine Aminotransferase (ALT/SGPT) 346 Total Bilirubin 2.6 Sodium Level 138 Potassium Level 4.0 Chloride Level 104 Carbon Dioxide Level 24.2 Anion Gap 10 Estimat Glomerular Filtration Rate 139 Radiology Last Impressions GI Procedure 04/22/17 0000 Signed Impressions: Service Date/Time: Saturday, April 22, 2017 16:57 - CONCLUSION: ERCP as above. Kwame Khan MD Abdomen/Pelvis CT 04/21/17 1034 Signed Impressions: Service Date/Time: Friday, April 21, 2017 11:36 - CONCLUSION: 1. Very large prostate, bladder 2. Multiple calcified gallstones and benign-appearing gallbladder 3. Calcification uncinate process pancreas region common duct. Common duct stone cannot be excluded. 4. There are no renal calculi identified Adam House MD FACR Cholangiopancreatography MRI 04/21/17 0000 Signed Impressions: Service Date/Time: Friday, April 21, 2017 19:06 - CONCLUSION: 1. Multiple gallstones in the gallbladder. 2. There is some dilatation of the biliary tree as well as the common bile duct measuring 1.1 cm in diameter. There appears to be a small stone in the distal common bile duct near the ampulla. 3. Nonspecific calcifications in the right lobe of the liver. 4. Benign-appearing left renal cysts. Steve Amato MD Cardiovascular: Regular Lungs: Clear Abdomen: Other (lap sites c/d/i; ANALI with SS drainage ) Extremities: No edema A/P Problem List: (1) Status post laparoscopic cholecystectomy ICD Codes: Z90.49 - Acquired absence of other specified parts of digestive tract Status: Acute (2) Choledocholithiasis ICD Codes: K80.50 - Calculus of bile duct without cholangitis or cholecystitis without obstruction Status: Resolved (3) Cholecystitis ICD Codes: K81.9 - Cholecystitis, unspecified Status: Acute (4) Hypercalcemia ICD Codes: E83.52 - Hypercalcemia Status: Acute (5) A-fib ICD Codes: I48.91 - Unspecified atrial fibrillation (6) Coronary artery disease ICD Codes: I25.10 - Atherosclerotic heart disease of [place] coronary artery without angina pectoris Status: Chronic Assessment and Plan 76 year old male with choledocholithiasis -POD1 lap abhijit and drain placement -Liver enzymes continue to trend down -Regular diet -Patient feels comfortable with taking care of drain at home without HHC - clear for DC -Follow up appt made for May 04 at 8:40AM Attending Statement NOTE FOR SURGICAL ATTENDING, DR. NICOLÁS RENDON I agree with above assessment and plan. The exam, history, and the medical decision-making described in the above note were completed with the assistance of the mid-level provider. I reviewed and agree with the findings presented. I attest that I had a [id number] encounter with the patient on the same day, and personally performed and documented my assessment and findings in the medical record. The following services were provided during this hospital visit: Chart data review, vital sign assessments/reviewing monitor data Review of consultations notes if present. Medication orders/review and/or management Ordering and/or reviewing lab tests Ordering and/or interpreting/reviewing x-rays and/or diagnostic studies Care of the patient and discussion of the patient with the care team Documentation time To help prompt me to consider important information that might be impacting today's encounter and assessment, information from prior notes written by myself or my colleagues may have been "brought forward/copy and pasted" into today's note. Problem Qualifiers (1) A-fib: Qualified Codes: I48.2 - Chronic atrial fibrillation Heidi Lehman/[facility] Apr 27, 2017 13:08 Nicolás Rendon MD Apr 27, 2017 15:34
--- NOTE | 2017-04-27 13:09 | HHI.DCPOC ---
Discharge Care Plan Diagnosis: (1) Gallbladder calculus (2) Cholecystitis (3) Choledocholithiasis Goals to Promote Your Health * To prevent worsening of your condition and complications * To maintain your health at the optimal level Directions to Meet Your Goals Take your medications as prescribed Follow your dietary instruction Follow activity as directed Keep your appointments as scheduled Take your immunizations and boosters as scheduled If your symptoms worsen call your PCP, if no PCP go to Urgent Care Center or Emergency Room Smoking is Dangerous to Your Health. Avoid second hand smoke Call the 24-hour hour crisis hotline for domestic abuse at Leonidas Meza DO Apr 27, 2017 13:09
== END 2017-04-27 17:15 | disposition home or self-care (01) | DRG 419 ==
LOC: NEPC 09:45 → NEDA 13:14 → INTOOBSV 13:14 → NEPHCDU 14:02 → OBSVTOIN 04-23 13:03 → N07B 04-26 15:50 → N07A 04-26 20:31
PROVIDERS: ADMIT Hospitalist; ATTEND Hospitalist
PROC: 0FC98ZZ Extirpation of Matter from Common Bile Duct, Via Natural or Artificial Opening Endoscopic (ICD-10-PCS; 2017-04-22)
PROC: BF101ZZ Fluoroscopy of Bile Ducts using Low Osmolar Contrast (ICD-10-PCS; 2017-04-22)
PROC: 0DB78ZX Excision of Stomach, Pylorus, Via Natural or Artificial Opening Endoscopic, Diagnostic (ICD-10-PCS; 2017-04-22)
PROC: 0FT44ZZ Resection of Gallbladder, Percutaneous Endoscopic Approach (ICD-10-PCS; principal; 2017-04-26 15:54)
DX: K80.62 Calculus of gallbladder and bile duct with acute cholecystitis without obstruction (principal); I48.0 Paroxysmal atrial fibrillation; I11.0 Hypertensive heart disease with heart failure; I50.9 Heart failure, unspecified; K26.9 Duodenal ulcer, unspecified as acute or chronic, without hemorrhage or perforation; E83.52 Hypercalcemia; D64.9 Anemia, unspecified; E78.5 Hyperlipidemia, unspecified; E03.9 Hypothyroidism, unspecified; R49.0 Dysphonia; N40.0 Benign prostatic hyperplasia without lower urinary tract symptoms; I25.2 Old myocardial infarction; Z95.5 Presence of coronary angioplasty implant and graft; Z87.891 Personal history of nicotine dependence; Z79.82 Long term (current) use of aspirin; K29.70 Gastritis, unspecified, without bleeding; K29.80 Duodenitis without bleeding; I25.10 Atherosclerotic heart disease of native coronary artery without angina pectoris; M19.90 Unspecified osteoarthritis, unspecified site; R74.8 Abnormal levels of other serum enzymes
CPT/HCPCS: 74176; 74181; 74330; 76377; 80053; 80076; 81001; 82607; 82728; 82746; 83010; 83540; 83550; 83615; 83690; 83735; 85025; 85044; 85610; 88304; 88305; 94150; C1769; J0690; J0780; J1100; J2250; J2270; J2370; J2405; J2710; J3010; J7030; J7120